=== PATIENT | female | born 1945 | race Caucasian/White ===

== ENCOUNTER 2018-07-06 09:00 | Emergency (ER) | payer OTHER ==
[2018-07-06 09:46] VITALS: BP 138/63; PULSE 82; TEMP 98.7; BMI 20.1
[2018-07-06] MEDS ORDERED: CYCLOBENZAPRINE HCL 10 MG TABLET (FP) PO ONE (10:42)
[2018-07-06] MEDS ORDERED: KETOROLAC TROMETHAMINE 15 MG/ML VIAL IM ONE (10:42)
--- NOTE | 2018-07-06 10:42 | PDOC ---
History of Present Illness - General Chief Complaint: Pain Stated Complaint: LEFT LEG PAIN Time Seen by Provider: 07/06/18 10:12 History Source: Patient Exam Limitations: No Limitations Past History - Past Medical History Allergies/Adverse Reactions: Allergies Allergy/AdvReac Type Severity Reaction Status Date / Time No Known Drug Allergies Allergy Verified 07/06/18 09:34 Home Medications: Ambulatory Orders Atorvastatin Ca [Lipitor] 5 mg PO HS 09/18/15 Azelastine/Fluticasone [Dymista Nasal [place]] 23 gm NS HS 09/18/15 Calcium 1,060 mg PO DAILY 10/24/15 Cholecalciferol (Vitamin D3) [Vitamin D3] 2,600 unit PO DAILY 10/24/15 Docosahexanoic Acid/Epa [Fish Oil Softgel] 1 each PO DAILY 10/24/15 L.acidoph,Paracasei, B.lactis [Probiotic] 1 each PO DAILY 10/24/15 Magnesium Oxide [Magnesium] 930 mg PO DAILY 10/24/15 Multivitamins [Multivit ([facility] Formulary)] 1 tab PO DAILY 10/24/15 Niacin [Niacin ER] 1,000 mg PO DAILY 10/24/15 Famotidine [Pepcid] 40 mg PO BID 02/23/18 Cyclobenzaprine HCl 5 mg PO HS #10 tablet 07/06/18 Ibuprofen 600 mg PO QID #30 tablet 07/06/18 Anemia: No Asthma: No Cancer: No Cardiac Disorders: No CVA: No COPD: No CHF: No Dementia: No Diabetes: No GI Disorders: Yes (ACID REFLUX) Disorders: No HTN: No Hypercholesterolemia: Yes Liver Disease: No Seizures: No Thyroid Disease: No - Suicide/Smoking/Psychosocial Hx Smoking History: Never smoked Hx Alcohol Use: No Drug/Substance Use Hx: No Substance Use Type: None *Physical Exam - Vital Signs Last Vital Signs Temp Pulse Resp BP Pulse Ox 98.7 F 82 16 138/63 99 07/06/18 09:34 07/06/18 09:34 07/06/18 09:34 07/06/18 09:34 07/06/18 09:34 *DC/Admit/Observation/Transfer Diagnosis at time of Disposition: Leg pain, left - Discharge Dispostion Disposition: HOME Condition at time of disposition: Stable Decision to Admit order: No - Referrals Referrals: Nicholas Brown MD [Primary Care Provider] - Andriy Taylor MD [Staff Physician] - Aj Norman MD [Staff Physician] - - Patient Instructions Printed Discharge Instructions: DI for Leg Pain, DI for Low Back Pain Additional Instructions: Your leg pain is most likely due to a muscle spasm in your back. Please take the ibuprofen 600 mg every 6 hours for the next week. Do not take more than 3000 mg a day. You may take the Flexeril 5 mg at night before bed. Do not drive after taking this medication as it may make you sleepy. You may alternate between heat and ice to the low back to help relieve the spasm. Gentle stretching exercises and walking may help as well. Please follow-up with orthopedics. 2 referrals have been provided for you. Return to the emergency department if you have numbness and tingling down the extremity, worsening pain, fevers, or if you have any changes in your symptoms. - Post Discharge Activity
[2018-07-06] MEDS ORDERED: CYCLOBENZAPRINE HCL 10 MG TABLET (FP) ONE (10:45)
[2018-07-06] MEDS ORDERED: KETOROLAC TROMETHAMINE 15 MG/ML VIAL ONE (10:46)
== END 2018-07-06 12:18 | disposition home or self-care (01) ==
LOC: JER 09:00 → JERFT 09:00
PROC: 3E0233Z Introduction of Anti-inflammatory into Muscle, Percutaneous Approach (ICD-10-PCS; principal; 2018-07-06)
DX: M79.605 Pain in left leg (principal); K21.9 Gastro-esophageal reflux disease without esophagitis; E78.00 Pure hypercholesterolemia, unspecified
CPT/HCPCS: 72100-TC-FY; 96372; 99281-25

== ENCOUNTER 2018-07-08 00:43 | Inpatient (IN) | payer OTHER ==
--- NOTE | 2018-07-08 02:04 | PDOC ---
History of Present Illness - General Chief Complaint: Pain Stated Complaint: LEFT LEG PAIN Time Seen by Provider: 07/08/18 02:04 - History of Present Illness Initial Comments: 07/08/18 02:18 Ms. Bourne is a 72 yo female w/ pmh of HLD who presents for evaluation of left hip pain. Patient reports it has lasted for approximately 1 1/2 weeks and that she saw a chiropractor who attempted electrical stimulation which made pain worse. Patient has an appointment for 10am today with orthopedics. Patient was evaluated in this ER yesterday in fast track and had spine Xray which was negative. Was discharged after 15mg toradol shot w/ flexeril and ibuprofen. Reports this was only minimally helpful. The patient denies chest pain, shortness of breath, headache and dizziness. Denies fever, chills, nausea, vomit, diarrhea and constipation. Denies dysuria, frequency, urgency and hematuria. Past History - Past Medical History Allergies/Adverse Reactions: Allergies Allergy/AdvReac Type Severity Reaction Status Date / Time No Known Drug Allergies Allergy Verified 07/06/18 09:34 Home Medications: Ambulatory Orders Atorvastatin Ca [Lipitor] 5 mg PO HS 09/18/15 Azelastine/Fluticasone [Dymista Nasal [place]] 23 gm NS HS 09/18/15 Calcium 1,060 mg PO DAILY 10/24/15 Cholecalciferol (Vitamin D3) [Vitamin D3] 2,600 unit PO DAILY 10/24/15 Docosahexanoic Acid/Epa [Fish Oil Softgel] 1 each PO DAILY 10/24/15 L.acidoph,Paracasei, B.lactis [Probiotic] 1 each PO DAILY 10/24/15 Magnesium Oxide [Magnesium] 930 mg PO DAILY 10/24/15 Multivitamins [Multivit ([facility] Formulary)] 1 tab PO DAILY 10/24/15 Niacin [Niacin ER] 1,000 mg PO DAILY 10/24/15 Famotidine [Pepcid] 40 mg PO BID 02/23/18 Cyclobenzaprine HCl 5 mg PO HS #10 tablet 07/06/18 Ibuprofen 600 mg PO QID #30 tablet 07/06/18 Anemia: No Asthma: No Cancer: No Cardiac Disorders: No CVA: No COPD: No CHF: No Dementia: No Diabetes: No GI Disorders: Yes (ACID REFLUX) Disorders: No HTN: No Hypercholesterolemia: Yes Liver Disease: No Seizures: No Thyroid Disease: No - Suicide/Smoking/Psychosocial Hx Smoking History: Never smoked Hx Alcohol Use: Yes (1-2 WEEK) Drug/Substance Use Hx: No Substance Use Type: None Review of Systems - Review of Systems Comments:: 07/08/18 02:25 GENERAL/CONSTITUTIONAL: No fever or chills. No weakness. HEAD, EYES, EARS, NOSE AND THROAT: No change in vision. No ear pain or discharge. No sore throat. CARDIOVASCULAR: No chest pain or shortness of breath RESPIRATORY: No cough, wheezing, or hemoptysis. GASTROINTESTINAL: No nausea, vomiting, diarrhea or constipation. GENITOURINARY: No dysuria, frequency, or change in urination. MUSCULOSKELETAL: +Left shooting hip pain as described. SKIN: No rash NEUROLOGIC: No headache, vertigo, loss of consciousness, or change in strength/ sensation. ENDOCRINE: No increased thirst. No abnormal weight change HEMATOLOGIC/LYMPHATIC: No anemia, easy bleeding, or history of blood clots. ALLERGIC/IMMUNOLOGIC: No hives or skin allergy. *Physical Exam - Vital Signs Last Vital Signs Temp Pulse Resp BP Pulse Ox 97.4 F L 79 19 126/69 98 07/08/18 00:50 07/08/18 00:50 07/08/18 00:50 07/08/18 00:50 07/08/18 00:50 - Physical Exam Comments: 07/08/18 02:26 GENERAL: Awake, alert, and fully oriented, in no acute distress HEAD: No signs of trauma, normocephalic, atraumatic EYES: PERRLA, EOMI, sclera anicteric, conjunctiva clear ENT: Auricles normal inspection, hearing grossly normal, nares patent, oropharynx clear without exudates. Moist mucosa NECK: Normal ROM, supple, no lymphadenopathy, JVD, or masses LUNGS: No distress, speaks full sentences, clear to auscultation bilaterally HEART: Regular rate and rhythm, normal S1 and S2, no murmurs, rubs or gallops, peripheral pulses normal and equal bilaterally. ABDOMEN: Soft, nontender, normoactive bowel sounds. No guarding, no rebound. No masses EXTREMITIES: +Positive straight leg raise test (L). No TTP. Normal sensation. Unable to test full ROM. Normal strength. NEUROLOGICAL: Cranial nerves II through XII grossly intact. Normal speech, no focal sensorimotor deficits SKIN: Warm, Dry, normal turgor, no rashes or lesions noted. ED Treatment Course - LABORATORY CBC & Chemistry Diagram: 07/08/18 03:40 07/08/18 03:40 Medical Decision Making - Medical Decision Making 07/08/18 03:31 Ms. Bourne is a 72 yo female w/ pmh as described who presents for evaluation of leg pain. Patient scheduled for 10am appointment with ortho. Upon repeat evaluation patient complaining of palpitations. EKG ordered for evaluation revealed patient now in afib. Cardiac workup started for further evaluation. Patient given 162 ASA. 07/08/18 06:36 Labs grossly wnl as below however slight UTI noted. Patient admitted to hospitalist for further cardiac evaluation. Laboratory Results - last 24 hr 07/08/18 07/08/18 07/08/18 03:40 03:40 03:40 WBC 9.7 RBC 4.46 Hgb 14.3 Hct 42.5 MCV 95.3 MCH 32.0 MCHC 33.6 RDW 13.3 Plt Count 307 MPV 8.5 Absolute Neuts (auto) 6.9 Neutrophils % 71.1 Lymphocytes % 16.0 Monocytes % 11.5 H Eosinophils % 1.0 D Basophils % 0.4 Nucleated RBC % 0 Sodium 138 Potassium 3.4 L Chloride 101 Carbon Dioxide 26 Anion Gap 11 BUN 11 Creatinine 0.4 L Creat Clearance w eGFR > 60 Random Glucose 94 Calcium 8.3 L Magnesium 2.3 Total Bilirubin 0.5 AST 18 ALT 23 Alkaline Phosphatase 85 Creatine Kinase 93 Troponin I 0.02 Total Protein 6.6 Albumin 3.6 TSH 1.21 Urine Color Yellow Urine Appearance Slcloudy Urine pH 6.0 Ur Specific [place] 1.008 L Urine Protein Negative Urine Glucose (UA) Negative Urine Ketones 1+ H Urine Blood 1+ H Urine Nitrite Negative Urine Bilirubin Negative Urine Urobilinogen Negative Ur Leukocyte Esterase 1+ H Urine WBC (Auto) 8 Urine RBC (Auto) 5 Urine Bacteria Rare Urine Mucus Rare *DC/Admit/Observation/Transfer Diagnosis at time of Disposition: Leg pain, left Afib Qualifiers: Atrial fibrillation type: unspecified Qualified Code(s): I48.91 - Unspecified atrial fibrillation - Discharge Dispostion Condition at time of disposition: Stable Decision to Admit order: Yes - Referrals Referrals: Nicholas Brown MD [Primary Care Provider] - - Patient Instructions - Post Discharge Activity
[2018-07-08] MEDS ORDERED: KETOROLAC TROMETHAMINE 30 MG/1 ML VIAL IM ONE (02:21)
[2018-07-08] MEDS ORDERED: ACETAMINOPHEN 500 MG TABLET (FP) PO ONE (03:06)
[2018-07-08] MEDS ORDERED: ACETAMINOPHEN 325 MG TABLET (FP) ONE (03:13)
[2018-07-08] MEDS ORDERED: KETOROLAC TROMETHAMINE 30 MG/1 ML VIAL ONE (03:13)
[2018-07-08] MEDS ORDERED: SODIUM CHLORIDE 1,000 ML IV STA (03:19)
[2018-07-08] MEDS ORDERED: morphine CARPU-JECT 4 MG/1 ML DISP.SYRIN IVPUSH ONE (03:19)
[2018-07-08] MEDS ORDERED: dilTIAZem HCL 50 MG/10 ML - 10 ML VIAL IVPUSH ONE ×2 (03:22→04:34)
[2018-07-08] MEDS ORDERED: dilTIAZem HCL 60 MG TABLET (FP) PO ONE (03:26)
[2018-07-08] MEDS ORDERED: dilTIAZem HCL 60 MG TABLET (FP) ONE (03:27)
[2018-07-08] MEDS ORDERED: morphine SULFATE 4 MG/ML VIAL ONE (03:27)
[2018-07-08] MEDS ORDERED: dilTIAZem HCL 125 MG/25 ML - 25 ML VIAL ONE ×2 (03:27→04:45)
--- NOTE | 2018-07-08 04:03 | PDOC ---
Attending Attestation - Resident Resident Name: BrendanruddySav vidales - ED Attending Attestation I have performed the following: I have examined & evaluated the patient, The case was reviewed & discussed with the resident, I agree w/resident's findings & plan - HPI HPI: 07/08/18 04:51 72 year old female with a significant past medical history of acid reflux and hyperlipidemia who presents to the emergency department for pain to her left leg and thigh since walking in the city a couple of weeks ago. She states she has an appointment with adapted physical education specialist at 10am. was seen 07/06/18 in the ED for similar sx, given toradol, instructions on flexeril and ibuprofen, w/o relief. no new trauma. she did receive stimulation treatment by chiropractor for her leg/thigh pain/ paresthesias. The patient denies chest pain, shortness of breath, headache and dizziness. The patient denies fever, chills, nausea, vomit, diarrhea and constipation. The patient denies dysuria, urgency, retention. PCP - Dr. Brown - Physicial Exam PE: 07/08/18 03:58 NAD, well appearing, PERRL, EOMI, MMM, nl conjunctiva, anicteric; neck supple. lungs clear, tachy, irregularly irregular, abdomen soft nontender. STUBBS x4, no focal neuro deficits. 5/5 strength in lower extrem, SILT in all extrem wiggles toes. +TTP in left thigh and buttock, +SLR. no back tenderness midline. No peripheral edema. normal color for ethnicity, [facility]. - Medical Decision Making 07/08/18 04:52 72 YOF with GERD and HLD, presenting with left leg/thigh pain, worse with movement, +strenuous activity, 2nd ED visit. already had L spine Xray from prior visit with good alignment, no compression fx. vitals notable for tachycardia, found to be in Afib. pt c/o palpitations while I examined her, EKG revealed Afib RVR. given diltiazem IV then PO dose. rate controlled, still in afib, but rate now between 90-110s. IVF hydration analgesia with morphine ASA given basic labs and lytes_wnl, trop neg. UA with leuk esterase and wbcs, will treat as UTI with urinary frequency, with keflex course. plan to admit for pain control, new onset Afib RVR, now rate controlled. Cardiology cs put in to Dr. 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 Roldan service. 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
[2018-07-08 04:13] LABS: BASO % 0.4 % (0-2.0); HEMATOCRIT 42.5 % (32.4-45.2); HEMOGLOBIN 14.3 GM/dL (10.7-15.3); MCHC 33.6 g/dl (32.0-36.0); MEAN CELL VOLUME 95.3 fl (80-96); MEAN PLT VOLUME 8.5 fl (7.5-11.1); MONO % 11.5 % (3.8-10.2); NEUT % 71.1 % (42.8-82.8); PLATELET COUNT 307 K/MM3 (134-434); RBC 4.46 M/mm3 (3.60-5.2); RDW 13.3 % (11.6-15.6); URINE APPEARANCE SLCLOUDY; URINE BILIRUBIN NEGATIVE (<2.0 mg/dL); URINE COLOR YELLOW; URINE GLUCOSE (UA) NEGATIVE (NEGATIVE); URINE KETONE 1+ (NEGATIVE); URINE LEUK ESTERASE 1+ (NEGATIVE); URINE NITRITE NEGATIVE (NEGATIVE); URINE PROTEIN NEGATIVE (NEGATIVE); URINE UROBILINOGEN NEGATIVE mg/dL (0.2-1.0); WHITE BLOOD COUNT 9.7 K/mm3 (4.0-10.0)
[2018-07-08 04:21] LABS: URINE BACTERIA RARE /hpf (NONE SEEN); URINE MUCUS RARE
[2018-07-08] MEDS ORDERED: CEPHALEXIN MONOHYDRATE 500 MG CAPSULE (UD) PO ONE (04:35)
[2018-07-08] MEDS ORDERED: CEPHALEXIN MONOHYDRATE 500 MG CAPSULE (UD) ONE (04:44)
[2018-07-08 05:00] LABS: ALBUMIN 3.6 g/dl (3.4-5.0); ALK PHOS 85 U/L (45-117); ANION GAP 11 MMOL/L (8-16); BILIRUBIN,TOTAL 0.5 mg/dL (0.2-1); BLOOD UREA NITROGEN 11 mg/dL (7-18); CALCIUM 8.3 mg/dL (8.5-10.1); CHLORIDE 101 mmol/L (98-107); CO2 26 mmol/L (21-32); CREATININE 0.4 mg/dL (0.55-1.3); GLUCOSE,RANDOM 94 mg/dL (74-106); POTASSIUM 3.4 mmol/L (3.5-5.1); SGOT/AST 18 U/L (15-37); SGPT/ALT 23 U/L (13-61); SODIUM 138 mmol/L (136-145); TOT PROT 6.6 g/dl (6.4-8.2)
[2018-07-08 05:59] LABS: MAGNESIUM 2.3 mg/dL (1.8-2.4)
[2018-07-08 06:40] LABS: INR 1.16 (0.83-1.09); PROTHROMBIN TIME (PATIENT) 13.7 SEC (9.7-13.0)
[2018-07-08] MEDS ORDERED: ACETAMINOPHEN 325 MG TABLET (FP) PO PRN (06:54)
[2018-07-08] MEDS ORDERED: ENOXAPARIN NA (PORCINE) 60 MG/0.6 ML DISP.SYRIN SQ ONE (07:30)
--- NOTE | 2018-07-08 07:39 | HP ---
CHIEF COMPLAINT: left hip pain PCP: Dr. Brown HISTORY OF PRESENT ILLNESS: Patient is a 72 year old female with a significant past medical history of HLD. She presents to the ED today for the second time in 2 days. The first visit was on when patient came in for left hip and thigh pain that worsened with movement and had a spine xray which was negative She was discharged on Flexeril and toradol and was to follow up with an orthopedic physician as an outpatient. She returns back to the ER with worsening left hip pain 06/17. Denies any trauma, falls. States that she went to see a chiropractor about 1 week ago who attempted an electrical stimulation procedure which made her pain worse. Patient has an appointment today with an orthopedic surgeon but her left hip pain became so severe prompting her to come back to the ED. In the ED she was noted to have tachycardia and an ekg revealed atrib with RVR. She was given Dilitiazem iv 15mg x1 and PO cardizem 60mg. She is admitted for severe left hip pain and new onset afib with rvr. ER course was notable for: (1) chest xray with new congestive changes (2) trop negative (3) vascular doppler negative for DVT (4) Lovenox 60mg x 1 Social History: Smoking: denies Alcohol:denies Drugs: denies Family History: Allergies No Known Drug Allergies Allergy (Verified 07/06/18 09:34) HOME MEDICATIONS: Home Medications Medication Instructions Recorded Atorvastatin Ca [Lipitor] 5 mg PO HS 09/18/15 Azelastine/Fluticasone [Dymista 23 gm NS HS 09/18/15 Nasal [place]] Calcium 1,060 mg PO DAILY 10/24/15 Cholecalciferol (Vitamin D3) 2,600 unit PO DAILY 10/24/15 [Vitamin D3] Docosahexanoic Acid/Epa [Fish Oil 1 each PO DAILY 10/24/15 Softgel] L.acidoph,Paracasei, B.lactis 1 each PO DAILY 10/24/15 [Probiotic] Magnesium Oxide [Magnesium] 930 mg PO DAILY 10/24/15 Multivitamins [Multivit ([facility] 1 tab PO DAILY 10/24/15 Formulary)] Niacin [Niacin ER] 1,000 mg PO DAILY 10/24/15 Famotidine [Pepcid] 40 mg PO BID 02/23/18 Cyclobenzaprine HCl 5 mg PO HS #10 tablet 07/06/18 Ibuprofen 600 mg PO QID #30 tablet 07/06/18 PHYSICAL EXAMINATION Vital Signs - 24 hr 07/08/18 07/08/18 07/08/18 00:50 04:15 05:46 Temperature 97.4 F L Pulse Rate 79 Pulse Rate [ 142 H 104 H Apical] Respiratory 19 19 Rate Blood Pressure 126/69 Blood Pressure 119/71 [Right Arm] O2 Sat by Pulse 98 97 Oximetry (%) 07/08/18 06:10 Temperature Pulse Rate Pulse Rate [ 107 H Apical] Respiratory 21 H Rate Blood Pressure Blood Pressure 110/59 L [Right Arm] O2 Sat by Pulse 98 Oximetry (%) GENERAL: Awake, alert, and fully oriented, in no acute distress. HEAD: Normal with no signs of trauma. EYES: Pupils equal, round and reactive to light, extraocular movements intact, sclera anicteric, conjunctiva clear. No lid lag. EARS, NOSE, THROAT: Ears normal, nares patent, oropharynx clear without exudates. Moist mucous membranes. NECK: Normal range of motion, supple without lymphadenopathy, JVD, or masses. LUNGS: Breath sounds equal, clear to auscultation bilaterally. No wheezes, and no crackles. No accessory muscle use. HEART: Regular rate and rhythm, normal S1 and S2 without murmur, rub or gallop. ABDOMEN: Soft, nontender, not distended, normoactive bowel sounds, no guarding, no rebound, no masses. No hepatomegaly or splenomegaly. MUSCULOSKELETAL: Normal range of motion at all joints. No bony deformities or tenderness. No CVA tenderness. UPPER EXTREMITIES: 2+ pulses, warm, well-perfused. No cyanosis. No clubbing. No peripheral edema. LOWER EXTREMITIES: 2+ pulses, warm, well-perfused. No calf tenderness. No peripheral edema. PSYCHIATRIC: Cooperative. Good eye contact. Appropriate mood and affect. SKIN: Warm, dry, normal turgor, no rashes or lesions noted, normal capillary refill. Laboratory Results - last 24 hr 07/08/18 07/08/18 07/08/18 03:40 03:40 03:40 WBC 9.7 RBC 4.46 Hgb 14.3 Hct 42.5 MCV 95.3 MCH 32.0 MCHC 33.6 RDW 13.3 Plt Count 307 MPV 8.5 Absolute Neuts (auto) 6.9 Neutrophils % 71.1 Lymphocytes % 16.0 Monocytes % 11.5 H Eosinophils % 1.0 D Basophils % 0.4 Nucleated RBC % 0 PT with INR INR PTT (Actin FS) Sodium 138 Potassium 3.4 L Chloride 101 Carbon Dioxide 26 Anion Gap 11 BUN 11 Creatinine 0.4 L Creat Clearance w eGFR > 60 Random Glucose 94 Calcium 8.3 L Magnesium 2.3 Total Bilirubin 0.5 AST 18 ALT 23 Alkaline Phosphatase 85 Creatine Kinase 93 Troponin I 0.02 Total Protein 6.6 Albumin 3.6 TSH 1.21 Urine Color Yellow Urine Appearance Slcloudy Urine pH 6.0 Ur Specific [place] 1.008 L Urine Protein Negative Urine Glucose (UA) Negative Urine Ketones 1+ H Urine Blood 1+ H Urine Nitrite Negative Urine Bilirubin Negative Urine Urobilinogen Negative Ur Leukocyte Esterase 1+ H Urine WBC (Auto) 8 Urine RBC (Auto) 5 Urine Bacteria Rare Urine Mucus Rare 07/08/18 07/08/18 06:08 06:09 WBC RBC Hgb Hct MCV MCH MCHC RDW Plt Count MPV Absolute Neuts (auto) Neutrophils % Lymphocytes % Monocytes % Eosinophils % Basophils % Nucleated RBC % PT with INR 13.70 H INR 1.16 H PTT (Actin FS) 23.7 L Sodium Potassium Chloride Carbon Dioxide Anion Gap BUN Creatinine Creat Clearance w eGFR Random Glucose Calcium Magnesium Total Bilirubin AST ALT Alkaline Phosphatase Creatine Kinase Troponin I Total Protein Albumin TSH Urine Color Urine Appearance Urine pH Ur Specific [place] Urine Protein Urine Glucose (UA) Urine Ketones Urine Blood Urine Nitrite Urine Bilirubin Urine Urobilinogen Ur Leukocyte Esterase Urine WBC (Auto) Urine RBC (Auto) Urine Bacteria Urine Mucus ASSESSMENT/PLAN: Patient is a 72 year old female with a significant past medical history of HLD. She presents to the ED today for the second time in 2 days. The first visit was on when patient came in for left hip and thigh pain that worsened with movement and had a spine xray which was negative She was discharged on Flexeril and toradol and was to follow up with an orthopedic physician as an outpatient. She returns back to the ER with worsening left hip pain 06/17. Denies any trauma, falls. States that she went to see a chiropractor about 1 week ago who attempted an electrical stimulation procedure which made her pain worse. Patient has an appointment today with an orthopedic surgeon but her left hip pain became so severe prompting her to come back to the ED. In the ED she was noted to have tachycardia and an ekg revealed atrib with RVR. She was given Dilitiazem iv 15mg x1 and PO cardizem 60mg. She is admitted for severe left hip pain and new onset afib with rvr. ----- Left hip pain HLD Atrial fib with RVR UTI --- Tachycardia/new onset afib In the ED, vitals notable for tachycardia, and found to be in Afib. with c/o of palpitations. EKG revealed Afib RVR. She was given diltiazem IV then Cardizem PO dose. ASA 162mg given in the Ed Troponin negative x 1 Lovenox 60mg x 1 weight based given in ER. further a/c to be determined by cardiology. Monitor on tele, trend trops, echo and cardiology consult. Will continue with PO Cardizem for rate control. HLD On Lipitor, Niacin fasting Lipid panel in a.m. UTI UA with leuk esterase and wbcs, asymptomatic, afebrile. Urine culture ordered Left hip pain Left hip xray stat Consider ortho consult PT evaluation Pain control with ultram and lidoderm fen tolerating PO monitor electrolytes low salt diet prophy heparin physical therapy protonix full code Visit type - Emergency Visit Emergency Visit: Yes ED Registration Date: 07/08/18 Care time: The patient presented to the Emergency Department on the above date and was hospitalized for further evaluation of their emergent condition. - New Patient This patient is new to me today: Yes Date on this admission: 07/08/18 - Critical Care Critical Care patient: No
[2018-07-08] MEDS: traMADol HCL 50 MG TABLET PO PRN ×2 (09:23→23:46)
--- NOTE | 2018-07-08 10:06 | CON.CARD ---
Consult Consult Specialty:: Cardiology Reason for Consultation:: af - History of Present Illness History of Present Illness: Patient is a 72 year old female with a significant past medical history of HLD. She presents to the ED today for the second time in 2 days. The first visit was on when patient came in for left hip and thigh pain that worsened with movement and had a spine xray which was negative She was discharged on Flexeril and toradol and was to follow up with an orthopedic physician as an outpatient. She returns back to the ER with worsening left hip pain 06/17. Denies any trauma, falls. States that she went to see a chiropractor about 1 week ago who attempted an electrical stimulation procedure which made her pain worse. Patient has an appointment today with an orthopedic surgeon but her left hip pain became so severe prompting her to come back to the ED. - History Source History Provided By: Patient, Medical Record - Past Medical History Cardio/Vascular: Yes: AFIB - Alcohol/Substance Use Hx Alcohol Use: Yes (1-2 WEEK) - Smoking History Smoking history: Never smoked Home Medications - Allergies Allergies/Adverse Reactions: Allergies Allergy/AdvReac Type Severity Reaction Status Date / Time No Known Drug Allergies Allergy Verified 07/06/18 09:34 - Home Medications Home Medications: Ambulatory Orders Atorvastatin Ca [Lipitor] 5 mg PO HS 09/18/15 Azelastine/Fluticasone [Dymista Nasal [place]] 23 gm NS HS 09/18/15 Calcium 1,060 mg PO DAILY 10/24/15 Cholecalciferol (Vitamin D3) [Vitamin D3] 2,600 unit PO DAILY 10/24/15 Docosahexanoic Acid/Epa [Fish Oil Softgel] 1 each PO DAILY 10/24/15 L.acidoph,Paracasei, B.lactis [Probiotic] 1 each PO DAILY 10/24/15 Magnesium Oxide [Magnesium] 930 mg PO DAILY 10/24/15 Multivitamins [Multivit ([facility] Formulary)] 1 tab PO DAILY 10/24/15 Niacin [Niacin ER] 1,000 mg PO DAILY 10/24/15 Famotidine [Pepcid] 40 mg PO BID 02/23/18 Cyclobenzaprine HCl 5 mg PO HS #10 tablet 07/06/18 Ibuprofen 600 mg PO QID #30 tablet 07/06/18 Review of Systems - Review of Systems Constitutional: reports: No Symptoms Eyes: reports: No Symptoms HENT: reports: No Symptoms Neck: reports: No Symptoms Cardiovascular: reports: No Symptoms Gastrointestinal: reports: No Symptoms Genitourinary: reports: No Symptoms Breasts: reports: No Symptoms Reported Musculoskeletal: reports: No Symptoms Integumentary: reports: No Symptoms Neurological: reports: No Symptoms Endocrine: reports: No Symptoms Hematology/Lymphatic: reports: No Symptoms Psychiatric: reports: No Symptoms Vital Signs: Vital Signs Temperature 97.5 F L 07/08/18 08:49 Pulse Rate 59 L 07/08/18 08:49 Respiratory Rate 20 07/08/18 08:49 Blood Pressure 92/52 L 07/08/18 08:49 O2 Sat by Pulse Oximetry (%) 98 07/08/18 06:10 Constitutional: Yes: Well Nourished, No Distress, Calm Eyes: Yes: WNL, Conjunctiva Clear, EOM Intact HENT: Yes: WNL, Atraumatic, Normocephalic Neck: Yes: WNL, Supple, Trachea Midline Respiratory: Yes: WNL, Regular, CTA Bilaterally Gastrointestinal: Yes: WNL, Normal Bowel Sounds Renal/: Yes: WNL Cardiovascular: Yes: WNL, Regular Rate and Rhythm Musculoskeletal: Yes: WNL Extremities: Yes: WNL Integumentary: Yes: WNL Neurological: Yes: WNL, Alert, Oriented ...Motor Strength: WNL Psychiatric: Yes: WNL, Alert, Oriented - Other Data Labs, Other Data: CBC, BMP 07/08/18 03:40 07/08/18 03:40 INR, PTT INR 1.16 (0.83-1.09) H 07/08/18 06:08 Troponin, BNP 07/08/18 03:40 Troponin I 0.02 Troponin, BNP 07/08/18 03:40 Troponin I 0.02 Imaging - Results Chest X-ray: Image Reviewed (no i/e) EKG: Image Reviewed (af rvr rep abn) Problem List - Problems (1) Afib Code(s): I48.91 - UNSPECIFIED ATRIAL FIBRILLATION Qualifiers: Atrial fibrillation type: unspecified Qualified Code(s): I48.91 - Unspecified atrial fibrillation (2) Leg pain, left Code(s): M79.605 - PAIN IN LEFT LEG (3) Palpitations Code(s): R00.2 - PALPITATIONS Assessment/Plan af rvr (?triggered by pain) in sr now CHADS@VASc score 2 huip pain plan cont telemetry echo repeat ekg will decide re nursing home AC after reviewing echo and patient course on telemetry 24 holter
[2018-07-08] MEDS ORDERED: PT OWN MED DRAWER 7, Y5N ONE (10:43)
[2018-07-08] MEDS: LIDOCAINE 5% TOPICAL PATCH TP SCH (10:45)
[2018-07-08] MEDS: ASPIRIN COATED 81 MG TABLET.EC PO SCH (10:45)
[2018-07-08] MEDS: POTASSIUM CHLORIDE TABS 20 MEQ TABLET.ER (FP) PO SCH (10:45)
--- NOTE | 2018-07-08 11:02 | EKG ---
Test Reason : Blood Pressure : / mmHG Vent. Rate : 161 BPM Atrial Rate : 170 BPM P-R Int : 000 ms QRS Dur : 092 ms QT Int : 306 ms P-R-T Axes : 000 051 269 degrees QTc Int : 500 ms ATRIAL FIBRILLATION WITH RAPID VENTRICULAR RESPONSE MARKED ST ABNORMALITY, POSSIBLE INFERIOR SUBENDOCARDIAL INJURY MARKED ST ABNORMALITY, POSSIBLE ANTERIOR SUBENDOCARDIAL INJURY ABNORMAL ECG WHEN COMPARED WITH ECG OF 23-FEB-2018 10:05, SIGNIFICANT CHANGES HAVE OCCURRED Confirmed by CHINYERE LYNNE MD ([id number]) on 07/08/2018 11:02:00 AM Referred By: Confirmed By:CHINYERE LYNNE MD
[2018-07-08] MEDS ORDERED: dilTIAZem HCL 30 MG TABLET (FP) PO SCH (12:00)
--- NOTE | 2018-07-08 12:07 | EKG ---
Test Reason : Blood Pressure : / mmHG Vent. Rate : 058 BPM Atrial Rate : 058 BPM P-R Int : 146 ms QRS Dur : 100 ms QT Int : 476 ms P-R-T Axes : 078 048 057 degrees QTc Int : 467 ms SINUS BRADYCARDIA OTHERWISE NORMAL ECG WHEN COMPARED WITH ECG OF 08-JUL-2018 03:14, SINUS RHYTHM HAS REPLACED ATRIAL FIBRILLATION VENT. RATE HAS DECREASED BY [address] NO LONGER DEPRESSED IN INFERIOR LEADS ST NO LONGER DEPRESSED IN ANTEROLATERAL LEADS T WAVE INVERSION NO LONGER EVIDENT IN INFERIOR LEADS T WAVE INVERSION NO LONGER EVIDENT IN ANTEROLATERAL LEADS Confirmed by CHINYERE LYNNE MD ([id number]) on 07/08/2018 12:06:49 PM Referred By: Shana VERMA Confirmed By:CHINYERE LYNNE MD
--- NOTE | 2018-07-08 14:26 | PN ---
Progress Note (short form) - Note Progress Note: Pt seen and examined. She denies any recent history of trauma. She states that she previously had left hip pain, she went to a chiropractor who applied electrical stimulation to the left low back and left hip area. Now her left hip area pain has completely resolved, she has no pain in that area. Now she has muscular strain type tightness and discomfort in both lateral calves, and mildly in the hamstrings. PE No findings in the pelvis or B/L hip area. Left leg above the knee and thigh/hip area are completely normal. Full ROM without pain. No pain in the left hip or hemipelvis with log rolling or axial load. No signs of acute trauma below the knees. No swelling. No bruising. No erythema. Completely non tender globally. B/L LE are NVI Her only physical findings today are that she is mildly sore around both lateral calves. Not swollen, not tight, no signs of a DVT. Not particularly tight. Xrays All xrays are nl, no signs of acute letty pathology, in pelvis, hip, femur Imp No pain in hip. + mild muscular soreness over B/L calves. Rec NTD from an ortho pov. No surgery. OOB and ambulate as tolerated, WBAT.
--- NOTE | 2018-07-08 14:43 | ECHO ---
Name: FAISAL FREEMAN Exam:Adult Echocardiogram Study Date: 07/08/2018 12:35 PM Age: 72 yrs Reason For Study: new onset a fib Height: 66 in Weight: 125 lb BSA: 1.6 m2 MMode/2D Measurements & Calculations IVSd: 0.71 cm Ao root diam: 3.4 cm LVIDd: 5.3 cm LA dimension: 3.6 cm LVIDs: 3.5 cm ACS: 2.0 cm LVPWd: 0.78 cm IVSs: 0.94 cm LVPWs: 1.1 cm EDV(Teich): 135.9 ml ESV(Teich): 49.2 ml Doppler Measurements & Calculations MV E max leonardo: 61.7 cm/sec Ao V2 max: 113.4 cm/sec MV A max leonardo: 49.4 cm/sec Ao max P.1 mmHg MV E/A: 1.3 Ao V2 mean: 70.4 cm/sec Ao mean P.5 mmHg Ao V2 VTI: 21.8 cm MR max leonardo: 332.5 cm/sec TR max leonardo: 233.8 cm/sec MR max P.2 mmHg TR max P.9 mmHg Med Peak E' Leonardo: 5.6 cm/sec Med E/e': 11.1 Lat Peak E' Leonardo: 6.9 cm/sec Lat E/e': 8.9 Procedure A two-dimensional transthoracic echocardiogram with color flow and Doppler was performed. Left Ventricle The left ventricular size, thickness and function are normal. The left ventricular ejection fraction is normal. Left Ventricular Filling pattern is normal for age. The left ventricular wall motion is carmina l. Right Ventricle The right ventricle is normal in size and function. Atria Normal left and right atrial size and function. The atrial septum is aneurysmal. Mitral Valve There is mild mitral valve thickening. There is no mitral valve stenosis. There is trace to mild mitr al regurgitation. Tricuspid Valve There is mild tricuspid valve thickening. There is no tricuspid stenosis. There is moderate to severe tricuspid regurgitation. Right ventricular systolic pressure is normal. Aortic Valve The aortic valve is normal in structure and function. No hemodynamically significant valvular aortic stenosis. No aortic regurgitation is present. Pulmonic Valve The pulmonic valve is not well visualized. There is no pulmonic valvular stenosis. Trace to mild pulm onic valvular regurgitation. Great Vessels The aortic root is normal size. Pericardium/Pleura There is no pericardial effusion. Interpretation Summary The left ventricular size, thickness and function are normal The left ventricular ejection fraction is normal. The left ventricular wall motion is normal. There is moderate to severe tricuspid regurgitation. Right ventricular systolic pressure is normal. The atrial septum is aneurysmal. There is trace to mild mitral regurgitation. Left Ventricular Filling pattern is normal for age. MD Addi Knutson 07/08/2018 02:43 PM
[2018-07-08] MEDS: dilTIAZem HCL 30 MG TABLET (FP) PO SCH (16:03)
[2018-07-08 19:00] VITALS: BMI 20.7
[2018-07-08] MEDS: ATORVASTATIN CA 10 MG TABLET (FP) PO SCH (22:51)
[2018-07-08] MEDS: LIDOCAINE PATCH REMOVAL MC SCH (23:06)
[2018-07-09] MEDS: dilTIAZem HCL 30 MG TABLET (FP) PO SCH ×4 (00:05→18:10)
--- NOTE | 2018-07-09 10:45 | PN ---
Progress Note, Physician Chief Complaint: Pt A&Ox3; nervous; wants to get OOB< but afrraid, and cries out in pain (from legs( when she moves in bed.No palpiitations or chest pain. History of Present Illness: 72 year old white female with a significant past medical history of acid reflux and hyperlipidemia who presents to the emergency department for pain to her left leg and thigh since walking in the city a couple of weeks ago. She states she has an appointment with auto clutch specialist at 10am. was seen 07/06/18 in the ED for similar sx, given toradol, instructions on flexeril and ibuprofen, w/o relief. no new trauma. she did receive stimulation treatment by chiropractor for her leg/thigh pain/ paresthesias. The patient denies chest pain, shortness of breath, headache and dizziness. The patient denies fever, chills, nausea, vomit, diarrhea and constipation. The patient denies dysuria, urgency, retention. PCP - Dr. Brown-->Annabi - Current Medication List Current Medications: Active Medications Acetaminophen (Tylenol -) 650 mg PO Q6H PRN PRN Reason: PAIN OR FEVER Last Admin: 07/09/18 01:44 Dose: 650 mg Aspirin (Ecotrin -) 81 mg PO DAILY [facility] Last Admin: 07/08/18 10:45 Dose: 81 mg Atorvastatin Calcium (Lipitor -) 5 mg PO HS [facility] Last Admin: 07/08/18 22:51 Dose: 5 mg Diltiazem HCl (Cardizem -) 30 mg PO Q6HPO [facility] Last Admin: 07/09/18 07:17 Dose: Not Given Lidocaine (Lidoderm Patch -) 1 patch TP DAILY [facility] Last Admin: 07/08/18 10:45 Dose: 1 patch Miscellaneous (Lidoderm Patch Removal) 1 each MC DAILY@2200 [facility] Last Admin: 07/08/18 23:06 Dose: Not Given Potassium Chloride (K-Dur -) 20 meq PO DAILY [facility] Last Admin: 07/08/18 10:45 Dose: 20 meq Tramadol HCl (Ultram -) 50 mg PO Q4H PRN PRN Reason: PAIN LEVEL 7 - 10 Last Admin: 07/08/18 23:46 Dose: 50 mg - Objective Vital Signs: Vital Signs Temperature 98.3 F 11/01/18 08:53 Pulse Rate 79 07/09/18 08:53 Respiratory Rate 18 07/09/18 08:53 Blood Pressure 114/68 07/09/18 08:53 O2 Sat by Pulse Oximetry (%) 99 07/08/18 12:12 Constitutional: Yes: Anxious, Thin Eyes: Yes: WNL Labs: CBC, BMP 07/08/18 03:40 07/08/18 03:40 INR, PTT INR 1.16 (0.83-1.09) H 07/08/18 06:08 Problem List - Problems (1) Paroxysmal A-fib Assessment/Plan: AF with RVR on admission. Now in NSR, with periods of sinus bradycardia. ECHO: normal LVEF; normal chamber sizes; moderately severe TR; atrial septal aneurysm. Rec: For diltiazem CD for HR control. Apixaban for anticoagulation. Replete K F/u TSH. Code(s): I48.0 - PAROXYSMAL ATRIAL FIBRILLATION (2) Hypokalemia Assessment/Plan: replete K, and keep 4-4.5 Keep Mg 2-2.4 Keep PO4 2.5-4.9. Code(s): E87.6 - HYPOKALEMIA
[2018-07-09 10:57] LABS: HEMOGLOBIN 13.3 GM/dL (10.7-15.3); MCH 31.8 pg (25.7-33.7); MCHC 33.3 g/dl (32.0-36.0); MEAN CELL VOLUME 95.5 fl (80-96); PLATELET COUNT 294 K/MM3 (134-434); RBC 4.19 M/mm3 (3.60-5.2); RDW 13.2 % (11.6-15.6); WHITE BLOOD COUNT 7.5 K/mm3 (4.0-10.0)
[2018-07-09] MEDS: LIDOCAINE 5% TOPICAL PATCH TP SCH (11:19)
[2018-07-09] MEDS: ASPIRIN COATED 81 MG TABLET.EC PO SCH (11:19)
[2018-07-09] MEDS: POTASSIUM CHLORIDE TABS 20 MEQ TABLET.ER (FP) PO SCH (11:20)
[2018-07-09 11:22] LABS: ANION GAP 9 MMOL/L (8-16); BLOOD UREA NITROGEN 17 mg/dL (7-18); CALCIUM 8.3 mg/dL (8.5-10.1); CHLORIDE 103 mmol/L (98-107); CO2 25 mmol/L (21-32); CREATININE 0.4 mg/dL (0.55-1.3); GLUCOSE,RANDOM 120 mg/dL (74-106); MAGNESIUM 2.1 mg/dL (1.8-2.4); POTASSIUM 3.7 mmol/L (3.5-5.1); SODIUM 137 mmol/L (136-145)
[2018-07-09 12:03] LABS: PHOSPHOROUS 2.9 mg/dL (2.5-4.9)
--- NOTE | 2018-07-09 12:47 | PN ---
Progress Note (short form) - Note Progress Note: Feels well except for hip pain No chest pain, dizziness Vital Signs - 24 hr 07/08/18 07/08/18 07/09/18 16:30 22:00 01:43 Temperature 97.8 F 97.7 F 99.3 F Pulse Rate 60 74 59 L Respiratory 18 18 18 Rate Blood Pressure 95/59 L 124/73 120/75 07/09/18 07/09/18 07/09/18 02:17 05:43 08:53 Temperature 99 F 98.2 F 98.3 F Pulse Rate 55 L 57 L 79 Respiratory 18 18 18 Rate Blood Pressure 129/78 123/72 114/68 Current Medications Generic Name Dose Route Start Last Admin Trade Name Freq PRN Reason Stop Dose Admin Acetaminophen 650 mg 07/08/18 06:54 07/09/18 01:44 Tylenol - PO 650 mg Q6H PRN Administration PAIN OR FEVER Apixaban 5 mg 07/09/18 12:45 Eliquis - PO BID LARISA Atorvastatin Calcium 5 mg 07/08/18 22:00 07/08/18 22:51 Lipitor - PO 5 mg HS LARISA Administration Diltiazem HCl 30 mg 07/08/18 18:00 07/09/18 07:17 Cardizem - PO Not Given Q6HPO LARISA Lidocaine 1 patch 07/08/18 10:00 07/09/18 11:19 Lidoderm Patch - TP 1 patch DAILY LARISA Administration Miscellaneous 1 each 07/08/18 22:00 07/08/18 23:06 Lidoderm Patch Removal MC Not Given DAILY@2200 LARISA Potassium Chloride 20 meq 07/08/18 10:00 07/09/18 11:20 K-Dur - PO 20 meq DAILY LARISA Administration Tramadol HCl 50 mg 07/08/18 09:05 07/08/18 23:46 Ultram - PO 50 mg Q4H PRN Administration PAIN LEVEL 7 - 10 Laboratory Results - last 24 hr 07/08/18 07/09/18 07/09/18 14:30 10:45 10:45 WBC 7.5 RBC 4.19 Hgb 13.3 Hct 40.0 MCV 95.5 MCH 31.8 MCHC 33.3 RDW 13.2 Plt Count 294 MPV 8.0 Sodium 137 Potassium 3.7 Chloride 103 Carbon Dioxide 25 Anion Gap 9 BUN 17 Creatinine 0.4 L Creat Clearance w eGFR > 60 Random Glucose 120 H Calcium 8.3 L Phosphorus 2.9 Magnesium 2.1 Creatine Kinase 76 Troponin I 0.02 S1 s2 RRR, systolic murmur+ Lungs clear Abd- soft, NT No edema Moving her lower extremities PLAN on holter monitor Echo noted After discussing with Dr Feliciano , cardiology- decision made to start Eliquis BID DC ASA dc plan for AM Problem List - Problems (1) Afib Code(s): I48.91 - UNSPECIFIED ATRIAL FIBRILLATION Qualifiers: Atrial fibrillation type: unspecified Qualified Code(s): I48.91 - Unspecified atrial fibrillation (2) Hypokalemia Code(s): E87.6 - HYPOKALEMIA (3) Leg pain, left Code(s): M79.605 - PAIN IN LEFT LEG (4) Paroxysmal A-fib Code(s): I48.0 - PAROXYSMAL ATRIAL FIBRILLATION (5) Palpitations Code(s): R00.2 - PALPITATIONS
[2018-07-09] MEDS ORDERED: PT OWN MED DRAWER 7, Y5N ONE (13:42)
[2018-07-09] MEDS: APIXABAN 5 MG TABLET PO SCH ×2 (13:52→22:54)
--- NOTE | 2018-07-09 15:56 | HOL ---
Hook-up date: 2018-07-08 13:41:00 Duration: 24:00:00 Test Indications: AF Medications: 37795 QRS complexes 2 Ventricular ectopics which represent <1 % of total QRS comp. 4 Supraventricular ectopics which represent <1 % of total QRS comp. * Paced QRS complexs which represent % of total QRS comp. * % of Time Classified as Noise VENTRICULAR ECTOPY 2 Isolated 0 Bigeminal Cycles 0 Couplets 0 Runs 0 Beats in Runs * Beats LONGEST at * BPM at :: -- * Beats FASTEST at * BPM at :: -- SUPRAVENTRICULAR ECTOPY 2 Isolated 1 Couplets 0 Runs 0 Beats in Runs * Beats LONGEST at * BPM at :: -- * Beats FASTEST at * BPM at :: -- HEART RATES 44 MIN at 02:13:28 2018-07-09 65 AVG 131 MAX at 11:12:08 2018-07-09 LONGEST RR 1.624 secs at 21:59:35 2018-07-08 SCANNED BY SOHAIL PAVON ON 07/09/18 1. Baseline sinus rhythm with avg hr 65 and range 44-131. 2. No significant pauses/bradycardia. 3. Rare pacs and pvcs. 4. No vt, vf, afib, aflutter, svt. 5. Pt reported episode of tiredness that occurred during NSR. Confirmed by ABI KAMARA, REBEKA ([id number]) on 07/09/2018 3:55:45 PM Referred By: CRISTINA SANDERSON DR Overread By: REBEKA ALEX MD
[2018-07-09] MEDS ORDERED: cefTRIAXone SODIUM 1 GM VIAL ONE (17:43)
[2018-07-09] MEDS ORDERED: DEXTROSE 5%-WATER - 50 ML IVPB ONE (17:43)
[2018-07-09] MEDS: CEFTRIAXONE 1 GM in DEXTROSE 5%-WATER - 50 ML IVPB SCH (18:09)
[2018-07-09] MEDS ORDERED: POLYETHYLENE GLYCOL 3350 119 GM BTL PO ONE (19:00)
[2018-07-09] MEDS ORDERED: MELATONIN 5 MG TABLETS PO SCH (22:00)
[2018-07-09] MEDS: LIDOCAINE PATCH REMOVAL MC SCH (22:55)
[2018-07-09] MEDS: ATORVASTATIN CA 10 MG TABLET (FP) PO SCH (22:56)
[2018-07-10] MEDS: dilTIAZem HCL 30 MG TABLET (FP) PO SCH ×3 (00:29→11:50)
[2018-07-10] MEDS: traMADol HCL 50 MG TABLET PO PRN ×2 (06:20→10:37)
--- NOTE | 2018-07-10 10:04 | PN ---
Progress Note (short form) - Note Progress Note: Ortho Pt seen and examined- c/o b/l LE tightness,pain Selected Entries 07/10/18 06:18 Temperature 98.1 F Pulse Rate 68 Respiratory 16 Rate Blood Pressure 138/77 B/L LE- + tightness over achilles, and ant tib, + ttp, good rom nvi a/p PT wbat stretching protocol ok to d/c from ortho pov d/w Dr. Marie
[2018-07-10] MEDS ORDERED: cefTRIAXone SODIUM 1 GM VIAL ONE (10:15)
[2018-07-10] MEDS ORDERED: DEXTROSE 5%-WATER - 50 ML IVPB ONE (10:16)
[2018-07-10] MEDS: APIXABAN 5 MG TABLET PO SCH (10:33)
[2018-07-10] MEDS: CEFTRIAXONE 1 GM in DEXTROSE 5%-WATER - 50 ML IVPB SCH (10:33)
[2018-07-10] MEDS: POTASSIUM CHLORIDE TABS 20 MEQ TABLET.ER (FP) PO SCH (10:33)
[2018-07-10] MEDS: LIDOCAINE 5% TOPICAL PATCH TP SCH (10:33)
--- NOTE | 2018-07-10 12:02 | PN ---
Progress Note (short form) - Note Progress Note: patient seen and examined. Chart reviewed. Complains of pain in the legs. Says difficulty walking Both patient and who is at bedside--- wants short-term rehabilitation Denies chest pain Denies shortness of breath. complains of constipation Vital Signs Temp 97.5 F L 07/10/18 10:00 Pulse 71 07/10/18 10:00 Resp 18 07/10/18 10:00 BP 115/71 07/10/18 10:00 Pulse Ox 95 07/09/18 21:00 Intake & Output 07/09/18 07/10/18 07/10/18 23:59 11:59 23:59 Intake Total 500 250 Balance 500 250 Intake: Oral 500 250 Other: Voiding Method Diaper Diaper # Unmeasured Voids Void 2 1 Bowel Movement No Active Medications Acetaminophen (Tylenol -) 650 mg PO Q6H PRN PRN Reason: PAIN OR FEVER Last Admin: 07/09/18 01:44 Dose: 650 mg Apixaban (Eliquis -) 5 mg PO BID [facility] Last Admin: 07/10/18 10:33 Dose: 5 mg Atorvastatin Calcium (Lipitor -) 5 mg PO [facility] Last Admin: 07/09/18 22:56 Dose: 5 mg Diltiazem HCl (Cardizem -) 30 mg PO Q6HPO [facility] Last Admin: 07/10/18 11:50 Dose: 30 mg Ceftriaxone Sodium 1 gm/ (Dextrose) 50 mls @ 100 mls/hr IVPB DAILY [facility] Last Admin: 07/10/18 10:33 Dose: 100 mls/hr Lidocaine (Lidoderm Patch -) 1 patch TP DAILY [facility] Last Admin: 07/10/18 10:33 Dose: 1 patch Melatonin (Melatonin) 10 mg PO [facility] Last Admin: 07/09/18 22:53 Dose: 10 mg Miscellaneous (Lidoderm Patch Removal) 1 each MC DAILY@2200 [facility] Last Admin: 07/09/18 22:55 Dose: Not Given Potassium Chloride (K-Dur -) 20 meq PO DAILY [facility] Last Admin: 07/10/18 10:33 Dose: 20 meq Tramadol HCl (Ultram -) 50 mg PO Q4H PRN PRN Reason: PAIN LEVEL 7 - 10 Last Admin: 07/10/18 10:37 Dose: 50 mg CBC, BMP 07/09/18 10:45 11/01/18 10:45 Microbiology 07/08/18 03:40 Urine Culture - Final Urine - Urine Clean Catch Escherichia Coli Holter monitor----reviewed--- sinus physical exam conscious and cooperative S1 s2 RRR, systolic murmur+ Lungs clear To auscultation Abd- soft, non tender bowel sounds present No edema neuro--alert and awake assessment and plan clinically stable Discussed with patient and in detail also discussed with case finishing machine adjuster Will try to get for short-term rehabilitation Will treat with by mouth antibiotics a few more days orthopedics consult noted----no surgery planned Echocardiogram--- also reviewed----I again discussed with cnmt today---- -- in light of--- abnormal echocardiogram--and paroxysmal A. fib----recommended to continue anticoagulation Patient strongly advised to follow up with cnmt--- in couple of weeks Anticipate discharge later today for short-term rehabilitation Both patient and patient's in agreement Add stool softener also Problem List - Problems (1) Hypokalemia Code(s): E87.6 - HYPOKALEMIA (2) Leg pain, left Code(s): M79.605 - PAIN IN LEFT LEG (3) Paroxysmal A-fib Code(s): I48.0 - PAROXYSMAL ATRIAL FIBRILLATION
[2018-07-10 14:11] VITALS: BP 122/71; PULSE 65; TEMP 97.6
--- NOTE | 2018-07-10 14:12 | DS ---
Physical Examination Vital Signs: Vital Signs Temperature 97.6 F 07/10/18 14:10 Pulse Rate 65 07/10/18 14:10 Respiratory Rate 18 07/10/18 14:10 Blood Pressure 122/71 07/10/18 14:10 O2 Sat by Pulse Oximetry (%) 95 07/10/18 09:00 Findings/Remarks: see today's progress note Labs: CBC, BMP 07/09/18 10:45 07/09/18 10:45 Discharge Summary Reason For Visit: NEW ONSET AFIB Current Active Problems Afib (Acute) Hypokalemia (Acute) Leg pain, left (Acute) Paroxysmal A-fib (Acute) Hospital Course: Patient is a 72 year old female with a significant past medical history of HLD. She presents to the ED for the second time in 2 days. The first visit was on when patient came in for left hip and thigh pain that worsened with movement and had a spine xray which was negative She was discharged on Flexeril and toradol and was to follow up with an orthopedic physician as an outpatient. She returns back to the ER with worsening left hip pain 06/17. Denies any trauma, falls. States that she went to see a chiropractor about 1 week ago who attempted an electrical stimulation procedure which made her pain worse. Patient has an appointment today with an orthopedic surgeon but her left hip pain became so severe prompting her to come back to the ED. In the ED she was noted to have tachycardia and an ekg revealed atrib with RVR. She was given Dilitiazem iv 15mg x1 and PO cardizem 60mg. She is admitted for severe left hip pain and new onset afib with rvr. ER course was notable for: (1) chest xray with new congestive changes (2) trop negative (3) vascular doppler negative for DVT (4) Lovenox 60mg x 1 patient converted to sinus rhythm x-rays did not show--- significant pathology Cardiology and orthopedics consultations were taken Echocardiogram--- showed moderate to severe TR--- septal aneurysm Started on anticoagulation Also treated with antibiotics--- for UTI--- Escherichia coli Patient now stable to go to longterm for short-term rehabilitation All above was discussed in detail with patient and patient's Also discussed with nursing staff as well as caser up Discharge time--- Approximate 35 minutes Condition: Stable - Instructions Referrals: Nicholas Brown MD [Primary Care Provider] - [facility] - Home Medications Comprehensive Discharge Medication List: Ambulatory Orders Atorvastatin Ca [Lipitor] 5 mg PO HS 09/18/15 Azelastine/Fluticasone [Dymista Nasal [place]] 23 gm NS HS 09/18/15 Calcium 1,060 mg PO DAILY 10/24/15 Cholecalciferol (Vitamin D3) [Vitamin D3] 2,600 unit PO DAILY 10/24/15 Docosahexanoic Acid/Epa [Fish Oil Softgel] 1 each PO DAILY 10/24/15 L.acidoph,Paracasei, B.lactis [Probiotic] 1 each PO DAILY 10/24/15 Magnesium Oxide [Magnesium] 930 mg PO DAILY 10/24/15 Multivitamins [Multivit ([facility] Formulary)] 1 tab PO DAILY 10/24/15 Niacin [Niacin ER] 1,000 mg PO DAILY 10/24/15 Famotidine [Pepcid] 40 mg PO BID 02/23/18 Apixaban [Eliquis -] 5 mg PO BID #60 tablet 07/09/18 Cefuroxime Axetil [Ceftin -] 500 mg PO Q12H #12 tablet 07/09/18 Lidocaine Patch Removal [Lidoderm Patch Removal] 1 each MC DAILY@2200 #30 each 07/09/18 Potassium Chloride [K-Dur -] 20 meq PO DAILY #14 tablet.er 07/09/18 Acetaminophen [Tylenol .Regular Strength -] 650 mg PO Q6H PRN tablet 07/10/18 Diltiazem [Cardizem -] 30 mg PO Q6HPO tablet 07/10/18 Melatonin 10 mg PO HS tab 07/10/18 traMADol HCL [Ultram -] 50 mg PO Q8H PRN #30 tablet MDD 3 07/10/18
[2018-07-10] MEDS ORDERED: POLYETHYLENE GLYCOL 3350 119 GM BTL PO ONE (14:45)
--- NOTE | 2018-07-10 16:12 | PN ---
Progress Note, Physician Chief Complaint: Pt A&Ox3; nervous; screamed from leg pain when sat up to get out of bed; once walking, however, with aid of therapists, she no longer cried out, and was able to talk. History of Present Illness: 72 year old white female with a significant past medical history of acid reflux and hyperlipidemia who presents to the emergency department for pain to her left leg and thigh since walking in the city a couple of weeks ago. She states she has an appointment with email campaign specialist at 10am. was seen 07/06/18 in the ED for similar sx, given toradol, instructions on flexeril and ibuprofen, w/o relief. no new trauma. she did receive stimulation treatment by chiropractor for her leg/thigh pain/ paresthesias. The patient denies chest pain, shortness of breath, headache and dizziness. The patient denies fever, chills, nausea, vomit, diarrhea and constipation. The patient denies dysuria, urgency, retention. PCP - Dr. Brown-->Tiffabi - Current Medication List Current Medications: Active Medications Acetaminophen (Tylenol -) 650 mg PO Q6H PRN PRN Reason: PAIN OR FEVER Last Admin: 07/09/18 01:44 Dose: 650 mg Apixaban (Eliquis -) 5 mg PO BID [facility] Last Admin: 07/10/18 10:33 Dose: 5 mg Atorvastatin Calcium (Lipitor -) 5 mg PO HS [facility] Last Admin: 07/09/18 22:56 Dose: 5 mg Diltiazem HCl (Cardizem -) 30 mg PO Q6HPO [facility] Last Admin: 07/10/18 11:50 Dose: 30 mg Ceftriaxone Sodium 1 gm/ (Dextrose) 50 mls @ 100 mls/hr IVPB DAILY [facility] Last Admin: 07/10/18 10:33 Dose: 100 mls/hr Lidocaine (Lidoderm Patch -) 1 patch TP DAILY [facility] Last Admin: 07/10/18 10:33 Dose: 1 patch Melatonin (Melatonin) 10 mg PO [facility] Last Admin: 07/09/18 22:53 Dose: 10 mg Miscellaneous (Lidoderm Patch Removal) 1 each MC DAILY@2200 [facility] Last Admin: 07/09/18 22:55 Dose: Not Given Potassium Chloride (K-Dur -) 20 meq PO DAILY [facility] Last Admin: 07/10/18 10:33 Dose: 20 meq Tramadol HCl (Ultram -) 50 mg PO Q4H PRN PRN Reason: PAIN LEVEL 7 - 10 Last Admin: 07/10/18 10:37 Dose: 50 mg - Objective Vital Signs: Vital Signs Temperature 97.6 F 07/10/18 14:10 Pulse Rate 65 07/10/18 14:10 Respiratory Rate 18 07/10/18 14:10 Blood Pressure 122/71 07/10/18 14:10 O2 Sat by Pulse Oximetry (%) 95 07/10/18 09:00 Labs: CBC, BMP 07/09/18 10:45 07/09/18 10:45 INR, PTT INR 1.16 (0.83-1.09) H 07/08/18 06:08 Problem List - Problems (1) Paroxysmal A-fib Assessment/Plan: AF with RVR on admission. Now in NSR, with periods of sinus bradycardia. ECHO: normal LVEF; normal chamber sizes; moderately severe TR; atrial septal aneurysm. Rec: For diltiazem CD for HR control. Apixaban for anticoagulation. Replete K F/u TSH. Code(s): I48.0 - PAROXYSMAL ATRIAL FIBRILLATION (2) Hypokalemia Assessment/Plan: replete K, and keep 4-4.5 Keep Mg 2-2.4 Keep PO4 2.5-4.9. Code(s): E87.6 - HYPOKALEMIA
== END 2018-07-10 17:14 | DRG 309 ==
LOC: JER 00:43 → JERBED 05:47 → UNDOADMIN 06:39 → J4S 08:23
PROVIDERS: ADMIT Internal Medicine; ATTEND Internal Medicine
DX: I48.0 Paroxysmal atrial fibrillation (principal); N39.0 Urinary tract infection, site not specified; B96.29 Other Escherichia coli [E. coli] as the cause of diseases classified elsewhere; M25.552 Pain in left hip; E87.6 Hypokalemia; E78.5 Hyperlipidemia, unspecified
CPT/HCPCS: 36415; 71045-TC-FY; 73502-TC-LT-FY; 80048; 80053; 80061; 81003; 81015; 82550; 83036; 83721; 83735; 84100; 84443; 84484; 85025; 85027; 85610; 85730; 87086; 87186; 93005; 93010; 93225; 93226; 93306-TC; 93970-TC; 97116-GP; 97161-GP; 99283-25; J7030

== ENCOUNTER 2022-05-31 07:20 | Inpatient (IN) | payer OTHER ==
[2022-05-31 07:48] VITALS: BMI 19.3
[2022-05-31 09:49] LABS: BASO % 0.8 % (0-2.0); EOS % 0.8 % (0-4.5); LYMPH % 22.7 % (8-40); MCH 33.1 pg (25.7-33.7); MCHC 35.1 g/dl (32.0-36.0); MEAN CELL VOLUME 94.2 fl (80-96); MEAN PLT VOLUME 8.4 fl (7.5-11.1); MONO % 9.7 % (3.8-10.2); PLATELET COUNT 237 10^3/uL (134-434); RBC 4.25 M/mm3 (3.60-5.2); RDW 13.7 % (11.6-15.6); WHITE BLOOD COUNT 5.5 K/mm3 (4.0-10.0)
[2022-05-31 10:04] LABS: CALCIUM 8.5 mg/dL (8.5-10.1)
[2022-05-31 10:06] LABS: ALBUMIN 3.8 g/dl (3.4-5.0)
[2022-05-31 10:07] LABS: CREATININE 0.5 mg/dL (0.55-1.3)
[2022-05-31 10:08] LABS: BLOOD UREA NITROGEN 16.5 mg/dL (7-18)
[2022-05-31 10:09] LABS: TOT PROT 6.4 g/dl (6.4-8.2)
[2022-05-31 10:11] LABS: BILIRUBIN,TOTAL 1.1 mg/dL (0.2-1)
[2022-05-31] MEDS ORDERED: traMADol HCL 50 MG TABLET PO PRN (13:51)
[2022-05-31] MEDS ORDERED: ACETAMINOPHEN 325 MG TABLET (FP) PO PRN (13:51)
[2022-05-31] MEDS ORDERED: POLYETHYLENE GLYCOL (HEALTHYLAX) 3350 17 GM PACKET PO PRN (13:51)
[2022-05-31 17:15] LABS: EPI CELLS 7 /uL (0-25.1); HYALINE CASTS 0 /uL (0-3.1); PH,URINE 6.5 (5.0-8.0); URINE APPEARANCE CLEAR; URINE BACTERIA 4 /uL (0-1359); URINE BILIRUBIN NEGATIVE (NEGATIVE); URINE COLOR YELLOW; URINE GLUCOSE (UA) NEGATIVE (NEGATIVE); URINE KETONE 1+ (NEGATIVE); URINE LEUK ESTERASE NEGATIVE (NEGATIVE); URINE NITRITE NEGATIVE (NEGATIVE); URINE PROTEIN NEGATIVE (NEGATIVE); URINE RBC 50 /uL (0-23.9); URINE UROBILINOGEN 0.2 mg/dL (0.2-1.0); URINE WBC 7 /uL (0-25.8)
[2022-05-31] MEDS ORDERED: FAMOTIDINE 20 MG TABLET ONE (21:03)
[2022-05-31] MEDS ORDERED: MELATONIN 5 MG TABLETS ONE (21:03)
[2022-05-31] MEDS ORDERED: dilTIAZem HCL 30 MG TABLET ONE (21:03)
[2022-05-31] MEDS ORDERED: APIXABAN 5 MG TABLET ONE (21:03)
[2022-05-31] MEDS: dilTIAZem HCL 30 MG TABLET PO SCH (21:17)
[2022-05-31] MEDS: FAMOTIDINE 20 MG TABLET PO SCH (21:18)
[2022-05-31] MEDS: MELATONIN 5 MG TABLETS PO SCH (21:18)
[2022-05-31] MEDS: APIXABAN 5 MG TABLET PO SCH (21:18)
[2022-05-31] MEDS: ATORVASTATIN CA 10 MG TABLET (FP) PO SCH (21:18)
[2022-06-01] MEDS: dilTIAZem HCL 30 MG TABLET PO SCH ×4 (00:08→17:30)
[2022-06-01] MEDS: ACETAMINOPHEN 325 MG TABLET (FP) PO PRN (00:08)
[2022-06-01] MEDS ORDERED: LORazepam 2 MG/ML SDV VIAL IVPB ONE (01:32)
[2022-06-01 08:16] LABS: BASO % 0.5 % (0-2.0); EOS % 0.3 % (0-4.5); HEMOGLOBIN 13.9 GM/dL (10.7-15.3); LYMPH % 13.7 % (8-40); MCH 32.5 pg (25.7-33.7); MCHC 33.1 g/dl (32.0-36.0); MEAN CELL VOLUME 97.9 fl (80-96); MEAN PLT VOLUME 8.8 fl (7.5-11.1); MONO % 11.7 % (3.8-10.2); NEUT % 73.8 % (42.8-82.8); PLATELET COUNT 227 10^3/uL (134-434); RBC 4.29 M/mm3 (3.60-5.2); RDW 13.8 % (11.6-15.6); WHITE BLOOD COUNT 10.5 K/mm3 (4.0-10.0)
[2022-06-01] MEDS: APIXABAN 5 MG TABLET PO SCH ×2 (09:00→21:20)
[2022-06-01] MEDS: FAMOTIDINE 20 MG TABLET PO SCH ×2 (09:00→21:19)
[2022-06-01 11:09] LABS: CALCIUM 9.2 mg/dL (8.5-10.1)
[2022-06-01 11:10] LABS: ALBUMIN 3.9 g/dl (3.4-5.0); BLOOD UREA NITROGEN 17.3 mg/dL (7-18); MAGNESIUM 2.1 mg/dL (1.8-2.4)
[2022-06-01 11:13] LABS: CREATININE 0.7 mg/dL (0.55-1.3)
[2022-06-01 11:14] LABS: TOT PROT 6.5 g/dl (6.4-8.2)
[2022-06-01 11:15] LABS: BILIRUBIN,TOTAL 1.1 mg/dL (0.2-1)
[2022-06-01] MEDS: ATORVASTATIN CA 10 MG TABLET (FP) PO SCH (21:18)
[2022-06-01] MEDS: MELATONIN 5 MG TABLETS PO SCH (21:35)
[2022-06-02] MEDS: dilTIAZem HCL 30 MG TABLET PO SCH ×4 (00:14→17:21)
[2022-06-02] MEDS ORDERED: LORazepam 2 MG/ML SDV VIAL IVPB ONE (01:28)
[2022-06-02] MEDS: FAMOTIDINE 20 MG TABLET PO SCH ×2 (09:03→21:29)
[2022-06-02] MEDS: APIXABAN 5 MG TABLET PO SCH ×2 (09:04→21:31)
[2022-06-02] MEDS: ATORVASTATIN CA 10 MG TABLET (FP) PO SCH (21:28)
[2022-06-02] MEDS: MELATONIN 5 MG TABLETS PO SCH (21:30)
[2022-06-03] MEDS: dilTIAZem HCL 30 MG TABLET PO SCH ×4 (00:12→18:07)
[2022-06-03] MEDS ORDERED: LORazepam 2 MG/ML SDV VIAL IVPB ONE (02:45)
[2022-06-03] MEDS: APIXABAN 5 MG TABLET PO SCH ×2 (10:04→22:33)
[2022-06-03] MEDS: FAMOTIDINE 20 MG TABLET PO SCH ×2 (10:04→22:33)
[2022-06-03] MEDS: AMINO ACIDS 4.25%/D5W 1,000 ML IV SCH (15:42)
[2022-06-03] MEDS: ACETAMINOPHEN 325 MG TABLET (FP) PO PRN (15:45)
[2022-06-03] MEDS: MELATONIN 5 MG TABLETS PO SCH (22:33)
[2022-06-03] MEDS: ATORVASTATIN CA 10 MG TABLET (FP) PO SCH (22:33)
[2022-06-04] MEDS: AMINO ACIDS 4.25%/D5W 1,000 ML IV SCH ×2 (03:30→15:15)
[2022-06-04] MEDS: dilTIAZem HCL 30 MG TABLET PO SCH ×4 (06:29→18:17)
[2022-06-04] MEDS: FAMOTIDINE 20 MG TABLET PO SCH ×2 (09:58→21:29)
[2022-06-04] MEDS: APIXABAN 5 MG TABLET PO SCH ×2 (09:58→21:28)
[2022-06-04 16:21] LABS: BASO % 0.4 % (0-2.0); EOS % 1.3 % (0-4.5); HEMATOCRIT 44.9 % (32.4-45.2); HEMOGLOBIN 14.6 GM/dL (10.7-15.3); LYMPH % 14.9 % (8-40); MCH 30.7 pg (25.7-33.7); MCHC 32.4 g/dl (32.0-36.0); MEAN CELL VOLUME 94.7 fl (80-96); MEAN PLT VOLUME 9.1 fl (7.5-11.1); MONO % 11.9 % (3.8-10.2); NEUT % 71.5 % (42.8-82.8); PLATELET COUNT 266 10^3/uL (134-434); RBC 4.74 M/mm3 (3.60-5.2); RDW 13.7 % (11.6-15.6); WHITE BLOOD COUNT 7.9 K/mm3 (4.0-10.0)
[2022-06-04] MEDS: MELATONIN 5 MG TABLETS PO SCH ×2 (18:44→21:36)
[2022-06-04] MEDS: ATORVASTATIN CA 10 MG TABLET (FP) PO SCH (21:28)
[2022-06-05] MEDS: dilTIAZem HCL 30 MG TABLET PO SCH ×3 (00:54→11:54)
[2022-06-05] MEDS: AMINO ACIDS 4.25%/D5W 1,000 ML IV SCH (03:46)
[2022-06-05 09:22] VITALS: BP 131/82; PULSE 88; RESP 18; TEMP 98.8
[2022-06-05] MEDS: FAMOTIDINE 20 MG TABLET PO SCH (09:23)
[2022-06-05] MEDS: APIXABAN 5 MG TABLET PO SCH (09:23)
== END 2022-06-05 14:11 | DRG 57 ==
LOC: JER 07:20 → JERBED 11:20 → OBSVTOIN 13:52 → J4W 23:36
PROVIDERS: ADMIT Family Medicine; ATTEND Family Medicine
DX: G30.9 Alzheimer's disease, unspecified (principal); F02.80 Dementia in other diseases classified elsewhere, unspecified severity, without behavioral disturbance, psychotic disturbance, mood disturbance, and anxiety; E87.6 Hypokalemia; R00.1 Bradycardia, unspecified; R29.6 Repeated falls; M79.605 Pain in left leg; R00.2 Palpitations; I48.0 Paroxysmal atrial fibrillation; E78.5 Hyperlipidemia, unspecified; M50.30 Other cervical disc degeneration, unspecified cervical region; W18.30XA Fall on same level, unspecified, initial encounter; Y92.098 Other place in other non-institutional residence as the place of occurrence of the external cause
CPT/HCPCS: 36415; 70450-TC; 71045-TC-FY; 72125-TC; 73590-TC-RT-FY; 80053; 80061; 81003; 83735; 84443; 84484; 85025; 87086; 93005; 93010; 93306-TC; 97162-GP; 99285-25; C9803-CS; G0378; U0003; U0005

== ENCOUNTER 2022-06-05 15:19 | Observation (INO) | payer OTHER ==
[2022-06-05 17:29] LABS: BASO % 0.6 % (0-2.0); EOS % 0.7 % (0-4.5); HEMOGLOBIN 15.5 GM/dL (10.7-15.3); LYMPH % 13.1 % (8-40); MCH 31.7 pg (25.7-33.7); MCHC 33.8 g/dl (32.0-36.0); MEAN CELL VOLUME 93.8 fl (80-96); MEAN PLT VOLUME 8.8 fl (7.5-11.1); MONO % 13.6 % (3.8-10.2); PLATELET COUNT 304 10^3/uL (134-434); RDW 13.4 % (11.6-15.6); WHITE BLOOD COUNT 8.3 K/mm3 (4.0-10.0)
[2022-06-05 17:32] LABS: EPI CELLS 8 /uL (0-25.1); HYALINE CASTS 1 /uL (0-3.1); PH,URINE 5.5 (5.0-8.0); URINE APPEARANCE CLEAR; URINE BACTERIA 4 /uL (0-1359); URINE BILIRUBIN NEGATIVE (NEGATIVE); URINE COLOR YELLOW; URINE GLUCOSE (UA) NEGATIVE (NEGATIVE); URINE KETONE NEGATIVE (NEGATIVE); URINE LEUK ESTERASE 1+ (NEGATIVE); URINE NITRITE NEGATIVE (NEGATIVE); URINE PROTEIN TRACE (NEGATIVE); URINE RBC 157 /uL (0-23.9); URINE UROBILINOGEN 0.2 mg/dL (0.2-1.0); URINE WBC 20 /uL (0-25.8)
[2022-06-05 17:57] LABS: ALBUMIN 3.6 g/dl (3.4-5.0); BLOOD UREA NITROGEN 17.2 mg/dL (7-18); CALCIUM 9.3 mg/dL (8.5-10.1)
[2022-06-05 18:00] LABS: CREATININE 0.6 mg/dL (0.55-1.3)
[2022-06-05] MEDS ORDERED: ACETAMINOPHEN 325 MG TABLET (FP) PO PRN (18:01)
[2022-06-05] MEDS ORDERED: POLYETHYLENE GLYCOL (HEALTHYLAX) 3350 17 GM PACKET PO PRN ×2 (18:01→18:04)
[2022-06-05 18:02] LABS: BILIRUBIN,TOTAL 0.4 mg/dL (0.2-1); TOT PROT 6.7 g/dl (6.4-8.2)
[2022-06-05 20:58] VITALS: RESP 18
[2022-06-05] MEDS ORDERED: APIXABAN 5 MG TABLET ONE (21:24)
[2022-06-05] MEDS ORDERED: FAMOTIDINE 20 MG TABLET ONE (21:25)
[2022-06-05] MEDS ORDERED: MELATONIN 5 MG TABLETS ONE (21:25)
[2022-06-05] MEDS ORDERED: ATORVASTATIN CA 10 MG TABLET (FP) ONE (21:25)
[2022-06-05] MEDS ORDERED: ATORVASTATIN CA 10 MG TABLET (FP) PO SCH (22:00)
[2022-06-05] MEDS ORDERED: MELATONIN 5 MG TABLETS PO SCH (22:00)
[2022-06-05] MEDS: APIXABAN 5 MG TABLET PO SCH (22:04)
[2022-06-06 00:56] VITALS: BMI 15.2
[2022-06-06] MEDS: FAMOTIDINE 20 MG TABLET PO SCH ×2 (01:04→09:32)
[2022-06-06] MEDS: dilTIAZem HCL 30 MG TABLET PO SCH ×4 (01:28→17:57)
[2022-06-06] MEDS: APIXABAN 5 MG TABLET PO SCH (09:32)
[2022-06-06] MEDS ORDERED: MULTIVITAMINS (DAILY MVI) TABLET (FP) PO SCH (10:00)
[2022-06-06 10:01] LABS: BASO % 0.7 % (0-2.0); EOS % 0.7 % (0-4.5); HEMATOCRIT 44.5 % (32.4-45.2); HEMOGLOBIN 14.9 GM/dL (10.7-15.3); LYMPH % 16.6 % (8-40); MCH 31.7 pg (25.7-33.7); MCHC 33.4 g/dl (32.0-36.0); MEAN CELL VOLUME 94.7 fl (80-96); MEAN PLT VOLUME 8.9 fl (7.5-11.1); MONO % 13.1 % (3.8-10.2); NEUT % 68.9 % (42.8-82.8); PLATELET COUNT 319 10^3/uL (134-434); RDW 13.3 % (11.6-15.6); WHITE BLOOD COUNT 7.2 K/mm3 (4.0-10.0)
[2022-06-06 21:13] VITALS: BP 117/73; PULSE 65; TEMP 98.9
== END 2022-06-06 20:20 ==
LOC: JER 15:19 → UNDOADMOB 16:01 → JERBED 16:01 → OBSVTOIN 16:02 → INTOOBSV 16:02 → JERBED 06-06 00:17 → J5S 06-06 00:17 → JERBED 06-06 13:14 → J5S 06-06 13:14
PROVIDERS: ADMIT Family Medicine; ATTEND Family Medicine
DX: G30.9 Alzheimer's disease, unspecified (principal); F02.80 Dementia in other diseases classified elsewhere, unspecified severity, without behavioral disturbance, psychotic disturbance, mood disturbance, and anxiety; R00.0 Tachycardia, unspecified; R53.1 Weakness; Z79.01 Long term (current) use of anticoagulants; I10 Essential (primary) hypertension; I48.91 Unspecified atrial fibrillation; K21.9 Gastro-esophageal reflux disease without esophagitis; F17.210 Nicotine dependence, cigarettes, uncomplicated
CPT/HCPCS: 36415; 71045-TC-FY; 80053; 81003; 85025; 87086; 93005; 93010; 99285-25; C9803-CS; G0378; U0003; U0005

== ENCOUNTER 2022-06-16 17:34 | Emergency (ER) | payer OTHER ==
[2022-06-16 18:23] VITALS: TEMP 98; BMI 22.6
[2022-06-16 19:16] LABS: BASO % 0.5 % (0-2.0); EOS % 0.9 % (0-4.5); HEMOGLOBIN 13.1 GM/dL (10.7-15.3); LYMPH % 13.1 % (8-40); MCH 30.9 pg (25.7-33.7); MCHC 32.6 g/dl (32.0-36.0); MEAN CELL VOLUME 94.8 fl (80-96); MEAN PLT VOLUME 8.2 fl (7.5-11.1); NEUT % 78.5 % (42.8-82.8); PLATELET COUNT 362 10^3/uL (134-434); RBC 4.22 M/mm3 (3.60-5.2); RDW 13.6 % (11.6-15.6); WHITE BLOOD COUNT 9.8 K/mm3 (4.0-10.0)
[2022-06-16 19:41] LABS: CALCIUM 8.8 mg/dL (8.5-10.1)
[2022-06-16 19:42] LABS: BLOOD UREA NITROGEN 15.1 mg/dL (7-18); MAGNESIUM 2.3 mg/dL (1.8-2.4)
[2022-06-16 19:43] LABS: INR 1.28 (0.83-1.09); PROTHROMBIN TIME (PATIENT) 14.8 SEC (9.7-13.0)
[2022-06-16 19:44] LABS: ACTIVATED PTT 31.3 SECONDS (25.2-36.5)
[2022-06-16 19:45] LABS: CREATININE 0.5 mg/dL (0.55-1.3)
[2022-06-16 19:47] LABS: BILIRUBIN,TOTAL 0.4 mg/dL (0.2-1); TOT PROT 5.7 g/dl (6.4-8.2)
[2022-06-16 21:24] VITALS: BP 117/74; PULSE 92; RESP 18
== END 2022-06-16 21:48 ==
LOC: JER 17:34
PROC: 0JQ10ZZ Repair Face Subcutaneous Tissue and Fascia, Open Approach (ICD-10-PCS; principal; 2022-06-16)
DX: S01.111A Laceration without foreign body of right eyelid and periocular area, initial encounter (principal); W19.XXXA Unspecified fall, initial encounter; Y92.9 Unspecified place or not applicable
CPT/HCPCS: 0241U-QW; 36415; 70450-TC; 71045-TC-FY; 72125-TC; 72170-TC-FY; 80053; 83735; 84484; 85025; 85610; 85730; 93005; 93010; 99285-25

== ENCOUNTER 2022-06-28 16:40 | Observation (INO) | payer OTHER ==
[2022-06-28 19:36] LABS: URINE APPEARANCE CLEAR; URINE BILIRUBIN NEGATIVE (NEGATIVE); URINE COLOR YELLOW; URINE GLUCOSE (UA) NEGATIVE (NEGATIVE); URINE KETONE NEGATIVE (NEGATIVE); URINE LEUK ESTERASE NEGATIVE (NEGATIVE); URINE NITRITE NEGATIVE (NEGATIVE); URINE PROTEIN NEGATIVE (NEGATIVE); URINE UROBILINOGEN 0.2 mg/dL (0.2-1.0)
[2022-06-28 19:37] LABS: BASO % 0.6 % (0-2.0); EOS % 0.9 % (0-4.5); HEMATOCRIT 38.3 % (32.4-45.2); HEMOGLOBIN 12.7 GM/dL (10.7-15.3); LYMPH % 17.4 % (8-40); MCH 31.6 pg (25.7-33.7); MCHC 33.1 g/dl (32.0-36.0); MEAN CELL VOLUME 95.5 fl (80-96); MEAN PLT VOLUME 8.9 fl (7.5-11.1); MONO % 9.1 % (3.8-10.2); PLATELET COUNT 351 10^3/uL (134-434); RBC 4.02 M/mm3 (3.60-5.2); RDW 13.8 % (11.6-15.6); WHITE BLOOD COUNT 7.9 K/mm3 (4.0-10.0)
[2022-06-28 20:17] LABS: CALCIUM 8.7 mg/dL (8.5-10.1)
[2022-06-28 20:18] LABS: ALBUMIN 3.2 g/dl (3.4-5.0); MAGNESIUM 2.2 mg/dL (1.8-2.4)
[2022-06-28 20:20] LABS: CREATININE 0.5 mg/dL (0.55-1.3)
[2022-06-28 20:21] LABS: TOT PROT 5.6 g/dl (6.4-8.2)
[2022-06-28 20:22] LABS: BILIRUBIN,TOTAL 0.2 mg/dL (0.2-1)
[2022-06-29] MEDS: dilTIAZem HCL 30 MG TABLET PO SCH ×3 (06:51→21:28)
[2022-06-29 08:53] LABS: HEMATOCRIT 38.5 % (32.4-45.2); HEMOGLOBIN 12.5 GM/dL (10.7-15.3); MCH 31.2 pg (25.7-33.7); MCHC 32.6 g/dl (32.0-36.0); MEAN CELL VOLUME 95.6 fl (80-96); MEAN PLT VOLUME 8.3 fl (7.5-11.1); PLATELET COUNT 343 10^3/uL (134-434); RBC 4.03 M/mm3 (3.60-5.2); RDW 13.7 % (11.6-15.6); WHITE BLOOD COUNT 4.6 K/mm3 (4.0-10.0)
[2022-06-29 09:15] LABS: BLOOD UREA NITROGEN 10.4 mg/dL (7-18); CALCIUM 8.5 mg/dL (8.5-10.1)
[2022-06-29 09:19] LABS: CREATININE 0.4 mg/dL (0.55-1.3)
[2022-06-29] MEDS: PANTOPRAZOLE 40 MG TABLET PO SCH (09:46)
[2022-06-29] MEDS: APIXABAN 5 MG TABLET PO SCH ×2 (09:46→21:28)
[2022-06-29] MEDS ORDERED: ENOXAPARIN NA (PORCINE) 30 MG/0.3 ML DISP.SYRIN SQ SCH (10:00)
[2022-06-29] MEDS: ATORVASTATIN CA 10 MG TABLET (FP) PO SCH (21:28)
[2022-06-30] MEDS: dilTIAZem HCL 30 MG TABLET PO SCH ×3 (05:55→21:36)
[2022-06-30] MEDS: APIXABAN 5 MG TABLET PO SCH ×2 (10:01→21:37)
[2022-06-30] MEDS: PANTOPRAZOLE 40 MG TABLET PO SCH (10:01)
[2022-06-30] MEDS: ATORVASTATIN CA 10 MG TABLET (FP) PO SCH (21:37)
[2022-07-01] MEDS: dilTIAZem HCL 30 MG TABLET PO SCH ×3 (06:20→22:22)
[2022-07-01] MEDS: APIXABAN 5 MG TABLET PO SCH ×2 (11:12→21:31)
[2022-07-01] MEDS: PANTOPRAZOLE 40 MG TABLET PO SCH (11:12)
[2022-07-01 14:31] VITALS: BMI 16.7
[2022-07-01] MEDS: ATORVASTATIN CA 10 MG TABLET (FP) PO SCH (21:31)
[2022-07-02] MEDS: dilTIAZem HCL 30 MG TABLET PO SCH ×3 (05:44→23:09)
[2022-07-02] MEDS: PANTOPRAZOLE 40 MG TABLET PO SCH (09:35)
[2022-07-02] MEDS: APIXABAN 5 MG TABLET PO SCH ×2 (09:35→23:08)
[2022-07-02] MEDS: ATORVASTATIN CA 10 MG TABLET (FP) PO SCH (23:08)
[2022-07-03] MEDS: dilTIAZem HCL 30 MG TABLET PO SCH ×3 (07:08→21:21)
[2022-07-03] MEDS: PANTOPRAZOLE 40 MG TABLET PO SCH (10:01)
[2022-07-03] MEDS: APIXABAN 5 MG TABLET PO SCH ×2 (10:01→21:21)
[2022-07-03] MEDS: MIRTAZAPINE 15 MG TABLET (FP) PO SCH (21:19)
[2022-07-03] MEDS: ATORVASTATIN CA 10 MG TABLET (FP) PO SCH (21:21)
[2022-07-04] MEDS: dilTIAZem HCL 30 MG TABLET PO SCH ×3 (05:39→22:10)
[2022-07-04] MEDS: PANTOPRAZOLE 40 MG TABLET PO SCH (09:38)
[2022-07-04] MEDS: APIXABAN 5 MG TABLET PO SCH ×2 (09:38→22:10)
[2022-07-04] MEDS: ATORVASTATIN CA 10 MG TABLET (FP) PO SCH (22:10)
[2022-07-04] MEDS: MIRTAZAPINE 15 MG TABLET (FP) PO SCH (22:10)
[2022-07-05] MEDS: dilTIAZem HCL 30 MG TABLET PO SCH (05:47)
[2022-07-05] MEDS: PANTOPRAZOLE 40 MG TABLET PO SCH (09:57)
[2022-07-05] MEDS: APIXABAN 5 MG TABLET PO SCH ×2 (09:57→21:45)
[2022-07-05] MEDS: ATORVASTATIN CA 10 MG TABLET (FP) PO SCH (21:45)
[2022-07-05] MEDS: MIRTAZAPINE 15 MG TABLET (FP) PO SCH (21:45)
[2022-07-06] MEDS: APIXABAN 5 MG TABLET PO SCH ×2 (10:01→21:27)
[2022-07-06] MEDS: PANTOPRAZOLE 40 MG TABLET PO SCH (10:02)
[2022-07-06] MEDS: ATORVASTATIN CA 10 MG TABLET (FP) PO SCH (21:27)
[2022-07-06] MEDS: MIRTAZAPINE 15 MG TABLET (FP) PO SCH (21:27)
[2022-07-07] MEDS: APIXABAN 5 MG TABLET PO SCH ×2 (10:01→22:42)
[2022-07-07] MEDS: PANTOPRAZOLE 40 MG TABLET PO SCH (10:01)
[2022-07-07 10:28] LABS: BASO % 1.3 % (0-2.0); EOS % 2.2 % (0-4.5); HEMATOCRIT 40.1 % (32.4-45.2); HEMOGLOBIN 13.4 GM/dL (10.7-15.3); LYMPH % 21.5 % (8-40); MCH 32.1 pg (25.7-33.7); MCHC 33.5 g/dl (32.0-36.0); MEAN PLT VOLUME 8.7 fl (7.5-11.1); MONO % 9.6 % (3.8-10.2); NEUT % 65.4 % (42.8-82.8); PLATELET COUNT 294 10^3/uL (134-434); RBC 4.18 M/mm3 (3.60-5.2); RDW 13.9 % (11.6-15.6); WHITE BLOOD COUNT 5.9 K/mm3 (4.0-10.0)
[2022-07-07 10:55] LABS: ALBUMIN 3.2 g/dl (3.4-5.0); BLOOD UREA NITROGEN 17.2 mg/dL (7-18); CALCIUM 8.9 mg/dL (8.5-10.1)
[2022-07-07 10:58] LABS: CREATININE 0.4 mg/dL (0.55-1.3)
[2022-07-07 11:00] LABS: BILIRUBIN,TOTAL 0.4 mg/dL (0.2-1); TOT PROT 5.8 g/dl (6.4-8.2)
[2022-07-07] MEDS: MIRTAZAPINE 15 MG TABLET (FP) PO SCH (22:42)
[2022-07-07] MEDS: ATORVASTATIN CA 10 MG TABLET (FP) PO SCH (22:43)
[2022-07-08] MEDS: PANTOPRAZOLE 40 MG TABLET PO SCH (09:50)
[2022-07-08] MEDS: APIXABAN 5 MG TABLET PO SCH ×2 (09:50→22:14)
[2022-07-08] MEDS: MIRTAZAPINE 15 MG TABLET (FP) PO SCH (22:14)
[2022-07-08] MEDS: ATORVASTATIN CA 10 MG TABLET (FP) PO SCH (22:14)
[2022-07-09] MEDS: APIXABAN 5 MG TABLET PO SCH ×2 (09:51→22:36)
[2022-07-09] MEDS: PANTOPRAZOLE 40 MG TABLET PO SCH (09:51)
[2022-07-09 15:40] VITALS: RESP 18
[2022-07-09] MEDS: ATORVASTATIN CA 10 MG TABLET (FP) PO SCH (22:36)
[2022-07-09] MEDS: MIRTAZAPINE 15 MG TABLET (FP) PO SCH (22:36)
[2022-07-10 09:10] VITALS: BP 105/65; PULSE 78; TEMP 98
[2022-07-10] MEDS: APIXABAN 5 MG TABLET PO SCH (09:11)
[2022-07-10] MEDS: PANTOPRAZOLE 40 MG TABLET PO SCH (09:11)
== END 2022-07-10 11:55 | disposition home or self-care (01) ==
LOC: JER 16:40 → INTOOBSV 20:47 → JERBED 20:47 → UNDOADMOB 20:47 → J5S 22:26 → JERBED 06-29 00:22 → J5S 07-01 13:23
PROVIDERS: ADMIT Internal Medicine; ATTEND Family Medicine
DX: G30.9 Alzheimer's disease, unspecified (principal); F02.80 Dementia in other diseases classified elsewhere, unspecified severity, without behavioral disturbance, psychotic disturbance, mood disturbance, and anxiety; I48.91 Unspecified atrial fibrillation; R26.2 Difficulty in walking, not elsewhere classified; I10 Essential (primary) hypertension; G31.83 Neurocognitive disorder with Lewy bodies; R26.9 Unspecified abnormalities of gait and mobility
CPT/HCPCS: 36415; 71045-TC-FY; 80048; 80053; 81003; 83735; 84484; 85025; 85027; 87086; 93005; 93010; 97116-GP; 97162-GP; 99285-25; C9803-CS; G0378; U0003; U0005

== ENCOUNTER 2022-07-12 14:53 | Observation (INO) | payer OTHER ==
[2022-07-12 19:00] LABS: BASO % 0.5 % (0-2.0); EOS % 0.9 % (0-4.5); HEMATOCRIT 40.4 % (32.4-45.2); HEMOGLOBIN 13.7 GM/dL (10.7-15.3); LYMPH % 15.5 % (8-40); MCH 32.2 pg (25.7-33.7); MCHC 33.8 g/dl (32.0-36.0); MEAN CELL VOLUME 95.4 fl (80-96); MEAN PLT VOLUME 9.1 fl (7.5-11.1); MONO % 9.7 % (3.8-10.2); NEUT % 73.4 % (42.8-82.8); PLATELET COUNT 354 10^3/uL (134-434); RBC 4.24 M/mm3 (3.60-5.2); WHITE BLOOD COUNT 8.7 K/mm3 (4.0-10.0)
[2022-07-12 19:08] LABS: INR 1.2 (0.83-1.09); PROTHROMBIN TIME (PATIENT) 13.8 SEC (9.7-13.0)
[2022-07-12 19:23] LABS: ALBUMIN 3.6 g/dl (3.4-5.0); CALCIUM 9.2 mg/dL (8.5-10.1)
[2022-07-12 19:27] LABS: CREATININE 0.4 mg/dL (0.55-1.3)
[2022-07-12 19:29] LABS: BILIRUBIN,TOTAL 0.5 mg/dL (0.2-1); TOT PROT 6.4 g/dl (6.4-8.2)
[2022-07-12] MEDS ORDERED: MIDAZOLAM HCL 5 MG/1 ML Single Dose Vial IVPUSH ONE (20:59)
[2022-07-12] MEDS ORDERED: MIDAZOLAM HCL 5 MG/1 ML Single Dose Vial ONE (21:01)
[2022-07-13 07:22] LABS: BASO % 0.6 % (0-2.0); EOS % 0.3 % (0-4.5); HEMATOCRIT 38.9 % (32.4-45.2); HEMOGLOBIN 12.9 GM/dL (10.7-15.3); LYMPH % 8.7 % (8-40); MCH 31.6 pg (25.7-33.7); MCHC 33.2 g/dl (32.0-36.0); MEAN CELL VOLUME 95.4 fl (80-96); MEAN PLT VOLUME 9.4 fl (7.5-11.1); MONO % 8.7 % (3.8-10.2); NEUT % 81.7 % (42.8-82.8); PLATELET COUNT 323 10^3/uL (134-434); RBC 4.08 M/mm3 (3.60-5.2); RDW 13.9 % (11.6-15.6); WHITE BLOOD COUNT 8.2 K/mm3 (4.0-10.0)
[2022-07-13 07:47] LABS: BLOOD UREA NITROGEN 14.3 mg/dL (7-18); CALCIUM 8.8 mg/dL (8.5-10.1)
[2022-07-13 07:52] LABS: CREATININE 0.5 mg/dL (0.55-1.3)
[2022-07-13] MEDS ORDERED: PANTOPRAZOLE 40 MG TABLET PO ONE (09:37)
[2022-07-13] MEDS ORDERED: APIXABAN 5 MG TABLET ONE (09:38)
[2022-07-13] MEDS ORDERED: MULTIVITAMINS (DAILY MVI) TABLET (FP) ONE (09:38)
[2022-07-13] MEDS: PANTOPRAZOLE 40 MG TABLET PO SCH (09:54)
[2022-07-13] MEDS: MULTIVITAMINS (DAILY MVI) TABLET (FP) PO SCH (09:54)
[2022-07-13] MEDS: APIXABAN 5 MG TABLET PO SCH ×2 (09:54→21:43)
[2022-07-13 15:35] VITALS: BMI 21.6
[2022-07-13] MEDS: MIRTAZAPINE 15 MG TABLET (FP) PO SCH (21:43)
[2022-07-13] MEDS: ATORVASTATIN CA 10 MG TABLET (FP) PO SCH (21:43)
[2022-07-13] MEDS: POLYETHYLENE GLYCOL (HEALTHYLAX) 3350 17 GM PACKET PO SCH (21:43)
[2022-07-14] MEDS: PANTOPRAZOLE 40 MG TABLET PO SCH (10:36)
[2022-07-14] MEDS: APIXABAN 5 MG TABLET PO SCH ×2 (10:36→21:10)
[2022-07-14] MEDS: MULTIVITAMINS (DAILY MVI) TABLET (FP) PO SCH (10:36)
[2022-07-14] MEDS: MIRTAZAPINE 15 MG TABLET (FP) PO SCH (21:10)
[2022-07-14] MEDS: POLYETHYLENE GLYCOL (HEALTHYLAX) 3350 17 GM PACKET PO SCH (21:10)
[2022-07-14] MEDS: ATORVASTATIN CA 10 MG TABLET (FP) PO SCH (21:10)
[2022-07-15 09:31] LABS: EPI CELLS 18 /uL (0-25.1); HYALINE CASTS 2 /uL (0-3.1); PH,URINE 5.5 (5.0-8.0); URINE APPEARANCE TURBID; URINE BACTERIA >9,000 /uL (0-1359); URINE BILIRUBIN 1+ (NEGATIVE); URINE COLOR DK YELLOW; URINE GLUCOSE (UA) NEGATIVE (NEGATIVE); URINE KETONE NEGATIVE (NEGATIVE); URINE LEUK ESTERASE TRACE (NEGATIVE); URINE NITRITE POSITIVE (NEGATIVE); URINE PROTEIN TRACE (NEGATIVE); URINE RBC 32 /uL (0-23.9); URINE WBC 53 /uL (0-25.8)
[2022-07-15] MEDS: MEMANTINE HCL 5 MG TABLET (UD) PO SCH ×2 (10:08→21:54)
[2022-07-15] MEDS: MULTIVITAMINS (DAILY MVI) TABLET (FP) PO SCH (10:08)
[2022-07-15] MEDS: PANTOPRAZOLE 40 MG TABLET PO SCH (10:08)
[2022-07-15] MEDS: APIXABAN 5 MG TABLET PO SCH ×2 (11:25→21:54)
[2022-07-15] MEDS: ACETAMINOPHEN 325 MG TABLET (FP) PO PRN (18:15)
[2022-07-15] MEDS: ATORVASTATIN CA 10 MG TABLET (FP) PO SCH (21:53)
[2022-07-15] MEDS: MIRTAZAPINE 15 MG TABLET (FP) PO SCH (21:53)
[2022-07-15] MEDS: POLYETHYLENE GLYCOL (HEALTHYLAX) 3350 17 GM PACKET PO SCH (21:54)
[2022-07-16] MEDS: ACETAMINOPHEN 325 MG TABLET (FP) PO PRN ×2 (03:56→10:52)
[2022-07-16] MEDS: MULTIVITAMINS (DAILY MVI) TABLET (FP) PO SCH (09:08)
[2022-07-16] MEDS: PANTOPRAZOLE 40 MG TABLET PO SCH (09:08)
[2022-07-16] MEDS: MEMANTINE HCL 5 MG TABLET (UD) PO SCH ×2 (09:08→21:52)
[2022-07-16] MEDS: APIXABAN 5 MG TABLET PO SCH ×2 (10:51→21:53)
[2022-07-16] MEDS: POLYETHYLENE GLYCOL (HEALTHYLAX) 3350 17 GM PACKET PO SCH (21:52)
[2022-07-16] MEDS: MIRTAZAPINE 15 MG TABLET (FP) PO SCH (21:52)
[2022-07-16] MEDS: ATORVASTATIN CA 10 MG TABLET (FP) PO SCH (21:53)
[2022-07-17 08:55] VITALS: RESP 20
[2022-07-17] MEDS: MEMANTINE HCL 5 MG TABLET (UD) PO SCH (08:59)
[2022-07-17] MEDS: ACETAMINOPHEN 325 MG TABLET (FP) PO PRN (08:59)
[2022-07-17] MEDS: MULTIVITAMINS (DAILY MVI) TABLET (FP) PO SCH (08:59)
[2022-07-17] MEDS: APIXABAN 5 MG TABLET PO SCH (09:00)
[2022-07-17] MEDS: PANTOPRAZOLE 40 MG TABLET PO SCH (09:00)
[2022-07-17 14:23] VITALS: BP 107/65; PULSE 62; TEMP 98.3
[2022-07-17] MEDS ORDERED: NITROFURANTOIN MACROCRYSTAL 50 MG CAPSULE (FP) PO SCH (18:00)
== END 2022-07-17 20:46 ==
LOC: SUPCPDRO 14:53 → JER 14:53 → JERBED 07-13 01:39 → J6S 07-13 18:38
PROVIDERS: ADMIT Internal Medicine; ATTEND Family Medicine
PROC: 3E033GC Introduction of Other Therapeutic Substance into Peripheral Vein, Percutaneous Approach (ICD-10-PCS; principal; 2022-07-13)
DX: R26.2 Difficulty in walking, not elsewhere classified (principal); M54.40 Lumbago with sciatica, unspecified side; N39.0 Urinary tract infection, site not specified; I10 Essential (primary) hypertension; I48.91 Unspecified atrial fibrillation; Z79.01 Long term (current) use of anticoagulants; G30.9 Alzheimer's disease, unspecified; F02.80 Dementia in other diseases classified elsewhere, unspecified severity, without behavioral disturbance, psychotic disturbance, mood disturbance, and anxiety; K21.9 Gastro-esophageal reflux disease without esophagitis; Z22.39 Carrier of other specified bacterial diseases; Z20.822 Contact with and (suspected) exposure to COVID-19; Z91.81 History of falling
CPT/HCPCS: 36415; 72128-TC; 72131-TC; 72141-TC; 72146-TC; 72148-TC; 80048; 80053; 81003; 85025; 85610; 85730; 87086; 87186; 96374; 97116-GP; 97161-GP; 99285-25; C9803-CS; G0378; U0003; U0005

== ENCOUNTER 2022-09-12 18:30 | Inpatient (IN) | payer OTHER ==
[2022-09-12 19:00] VITALS: BMI 20.9
[2022-09-12] MEDS ORDERED: SODIUM CHLORIDE 500 ML IV STA (20:45)
[2022-09-12 21:34] LABS: HEMATOCRIT 44.7 % (32.4-45.2); MCH 31.3 pg (25.7-33.7); MCHC 33.6 g/dl (32.0-36.0); MEAN CELL VOLUME 93.3 fl (80-96); MEAN PLT VOLUME 8.5 fl (7.5-11.1); PLATELET COUNT 359 10^3/uL (134-434); RBC 4.79 M/mm3 (3.60-5.2); RDW 14.3 % (11.6-15.6); WHITE BLOOD COUNT 25.2 K/mm3 (4.0-10.0)
[2022-09-12 21:44] LABS: INR 1.17 (0.83-1.09); PROTHROMBIN TIME (PATIENT) 13.5 SEC (9.7-13.0)
[2022-09-12 22:02] LABS: CHLORIDE 103 mmol/L (98-107); SODIUM 139 mmol/L (136-145)
[2022-09-12 22:04] LABS: ALBUMIN 3.9 g/dl (3.4-5.0); ANION GAP 10 MMOL/L (8-16); CALCIUM 9.6 mg/dL (8.5-10.1); CO2 26 mmol/L (21-32)
[2022-09-12 22:05] LABS: BLOOD UREA NITROGEN 22.4 mg/dL (7-18); GLUCOSE,RANDOM 166 mg/dL (74-106)
[2022-09-12 22:08] LABS: CREATININE 0.8 mg/dL (0.55-1.3); SGOT/AST 37 U/L (15-37)
[2022-09-12 22:09] LABS: TOT PROT 6.9 g/dl (6.4-8.2)
[2022-09-12 22:10] LABS: ALK PHOS 122 U/L (45-117)
[2022-09-12 22:11] LABS: BILIRUBIN,TOTAL 0.7 mg/dL (0.2-1); SGPT/ALT 49 U/L (13-61)
[2022-09-12] MEDS ORDERED: ASPIRIN 325 MG TABLET PO ONE (22:40)
[2022-09-12 23:05] LABS: ANISOCYTOSIS 0; MACROCYTOSIS 0
[2022-09-12] MEDS ORDERED: ASPIRIN 325 MG TABLET ONE (23:05)
[2022-09-13] MEDS ORDERED: ACETAMINOPHEN 1000 MG/100 ML BAG IVPB ONE (00:01)
[2022-09-13] MEDS ORDERED: morphine SULFATE 4 MG/ML VIAL IVPUSH ONE (00:01)
[2022-09-13] MEDS ORDERED: HALOPERIDOL LACTATE 5 MG/ML IM ONE ×2 (01:47→02:06)
[2022-09-13] MEDS ORDERED: HALOPERIDOL DECANOATE 500 MG/5ML MDV IM ONE (01:49)
[2022-09-13] MEDS ORDERED: SODIUM CHLORIDE 1,000 ML IV STA (01:49)
[2022-09-13] MEDS ORDERED: ACETAMINOPHEN INJECTION 100 ML IVPB ONE (02:06)
[2022-09-13 02:20] LABS: EPI CELLS 28 /uL (0-25.1); HYALINE CASTS 11 /uL (0-3.1); URINE APPEARANCE CLEAR; URINE BACTERIA 12 /uL (0-1359); URINE BILIRUBIN NEGATIVE (NEGATIVE); URINE COLOR YELLOW; URINE GLUCOSE (UA) NEGATIVE (NEGATIVE); URINE KETONE 1+ (NEGATIVE); URINE LEUK ESTERASE NEGATIVE (NEGATIVE); URINE NITRITE NEGATIVE (NEGATIVE); URINE PROTEIN 1+ (NEGATIVE); URINE RBC 43 /uL (0-23.9); URINE UROBILINOGEN 0.2 mg/dL (0.2-1.0); URINE WBC 54 /uL (0-25.8)
[2022-09-13 09:14] LABS: HEMATOCRIT 40.4 % (32.4-45.2); HEMOGLOBIN 13.3 GM/dL (10.7-15.3); MCH 30.8 pg (25.7-33.7); MCHC 32.9 g/dl (32.0-36.0); MEAN CELL VOLUME 93.7 fl (80-96); MEAN PLT VOLUME 9.4 fl (7.5-11.1); PLATELET COUNT 284 10^3/uL (134-434); RBC 4.31 M/mm3 (3.60-5.2); RDW 14.2 % (11.6-15.6); WHITE BLOOD COUNT 21.9 K/mm3 (4.0-10.0)
[2022-09-13] MEDS ORDERED: ASPIRIN 81 MG CHEWABLE TABLETS ONE (09:23)
[2022-09-13 09:38] LABS: CHLORIDE 106 mmol/L (98-107); SODIUM 140 mmol/L (136-145)
[2022-09-13 09:53] LABS: BLOOD UREA NITROGEN 20.9 mg/dL (7-18)
[2022-09-13 09:54] LABS: CALCIUM 8.7 mg/dL (8.5-10.1)
[2022-09-13 09:55] LABS: ANION GAP 13 MMOL/L (8-16); CO2 20 mmol/L (21-32); GLUCOSE,RANDOM 159 mg/dL (74-106); MAGNESIUM 2.2 mg/dL (1.8-2.4)
[2022-09-13 09:56] LABS: ALBUMIN 3.4 g/dl (3.4-5.0)
[2022-09-13 09:58] LABS: CREATININE 0.6 mg/dL (0.55-1.3); SGOT/AST 35 U/L (15-37); TOT PROT 6.2 g/dl (6.4-8.2); TRIGLYCERIDES 52 mg/dL (0-150)
[2022-09-13 09:59] LABS: ANISOCYTOSIS 0; BILIRUBIN,TOTAL 0.6 mg/dL (0.2-1); LDL CHOLESTEROL (ONLY SJRH) 65 mg/dL (5-100); MACROCYTOSIS 0; SGPT/ALT 45 U/L (13-61)
[2022-09-13 10:00] LABS: CHOLESTEROL 152 mg/dL (50-200); HDL CHOLESTEROL 87 mg/dL (40-60)
[2022-09-13] MEDS ORDERED: METOPROLOL TARTRATE 50 MG TABLET (FP) PO SCH (10:00)
[2022-09-13] MEDS ORDERED: ASPIRIN 81 MG CHEWABLE TABLETS PO SCH (10:00)
[2022-09-13] MEDS ORDERED: ENOXAPARIN NA (PORCINE) 40 MG/0.4 ML DISP.SYRIN SQ SCH (10:00)
[2022-09-13 10:03] LABS: ALK PHOS 97 U/L (45-117)
[2022-09-13] MEDS ORDERED: ENOXAPARIN NA (PORCINE) 40 MG/0.4 ML DISP.SYRIN SQ ONE (10:59)
[2022-09-13] MEDS ORDERED: ACETAMINOPHEN 650 MG SUPP.RECT ONE (16:54)
[2022-09-13] MEDS ORDERED: ACETAMINOPHEN 650 MG SUPP.RECT PR ONE (16:57)
[2022-09-13 17:12] VITALS: BP 120/91; PULSE 102; RESP 31; TEMP 102.2
== END 2022-09-13 17:12 | disposition short-term general hospital (02) | DRG 280 ==
LOC: JER 18:30 → JERBED 09-13 03:22
PROVIDERS: ADMIT Internal Medicine; ATTEND Family Medicine
DX: I21.4 Non-ST elevation (NSTEMI) myocardial infarction (principal); S72.001A Fracture of unspecified part of neck of right femur, initial encounter for closed fracture; I10 Essential (primary) hypertension; I48.91 Unspecified atrial fibrillation; K21.9 Gastro-esophageal reflux disease without esophagitis; G30.9 Alzheimer's disease, unspecified; F02.80 Dementia in other diseases classified elsewhere, unspecified severity, without behavioral disturbance, psychotic disturbance, mood disturbance, and anxiety; I45.10 Unspecified right bundle-branch block; E78.5 Hyperlipidemia, unspecified; D72.829 Elevated white blood cell count, unspecified; W18.39XA Other fall on same level, initial encounter; Y92.098 Other place in other non-institutional residence as the place of occurrence of the external cause
CPT/HCPCS: 0241U-QW; 36415; 70450-TC; 70486-TC; 71045-TC-FY; 71275-TC; 72125-TC; 72170-TC-FY; 73521-TC-FY; 73564-TC-RT-FY; 80053; 80061; 81003; 83735; 84443; 84484; 85025; 85610; 85730; 87086; 93005; 93010; 93306-TC; 99285-25

== ENCOUNTER 2022-12-15 05:31 | Inpatient (IN) | payer OTHER ==
[2022-12-15] MEDS ORDERED: SODIUM CHLORIDE 0.9% 500 ML INFUS.BAG IV ONE (05:39)
[2022-12-15] MEDS ORDERED: ACETAMINOPHEN 1000 MG/100 ML BAG IVPB ONE (05:44)
[2022-12-15] MEDS ORDERED: PIPERACILLIN/TAZOB 4.5 GM 4.5 GM in DEXTROSE 5%-WATER 100 ML IVPB ONE (05:44)
[2022-12-15] MEDS ORDERED: VANCOMYCIN 1 GM in D5W (PRE-DOCKED) 1,000 MG/250 ML IVPB ONE (05:45)
[2022-12-15 05:51] VITALS: BMI 19.7
[2022-12-15] MEDS ORDERED: ACETAMINOPHEN INJECTION 100 ML IVPB ONE (06:01)
[2022-12-15] MEDS ORDERED: PIPERACILLIN/TAZOB 4.5 GM 4.5 GM/100 ML BAG IVPB ONE (06:01)
[2022-12-15 06:25] LABS: BASO % 0.2 % (0-2.0); EOS % 0.3 % (0-4.5); HEMATOCRIT 28.9 % (32.4-45.2); HEMOGLOBIN 9.4 GM/dL (10.7-15.3); LYMPH % 2.9 % (8-40); MCH 26.8 pg (25.7-33.7); MCHC 32.7 g/dl (32.0-36.0); MEAN CELL VOLUME 81.9 fl (80-96); MEAN PLT VOLUME 8.1 fl (7.5-11.1); MONO % 3.3 % (3.8-10.2); NEUT % 93.3 % (42.8-82.8); PLATELET COUNT 627 10^3/uL (134-434); RBC 3.52 M/mm3 (3.60-5.2); RDW 18.7 % (11.6-15.6); WHITE BLOOD COUNT 16.4 K/mm3 (4.0-10.0)
[2022-12-15 06:32] LABS: INR 1.43 (0.83-1.09); PROTHROMBIN TIME (PATIENT) 16.5 SEC (9.7-13.0)
[2022-12-15 06:35] LABS: ACTIVATED PTT 28.8 SECONDS (25.2-36.5)
[2022-12-15 06:46] LABS: CHLORIDE 96 mmol/L (98-107); SODIUM 131 mmol/L (136-145)
[2022-12-15 06:48] LABS: ALBUMIN 2.1 g/dl (3.4-5.0); ANION GAP 7 MMOL/L (8-16); BLOOD UREA NITROGEN 11.9 mg/dL (7-18); CALCIUM 8.4 mg/dL (8.5-10.1); CO2 29 mmol/L (21-32); GLUCOSE,RANDOM 178 mg/dL (74-106)
[2022-12-15 06:51] LABS: SGOT/AST 38 U/L (15-37); SGPT/ALT 75 U/L (13-61)
[2022-12-15 06:52] LABS: CREATININE 0.2 mg/dL (0.55-1.3)
[2022-12-15 06:53] LABS: BILIRUBIN,TOTAL 0.4 mg/dL (0.2-1)
[2022-12-15 06:54] LABS: ALK PHOS 140 U/L (45-117)
[2022-12-15] MEDS ORDERED: VANCOMYCIN/WATER FOR INJ (PEG) 1,000 MG/200 ML BAG IVPB ONE (08:06)
[2022-12-15 08:36] LABS: VENOUS BASE EXCESS 4.2 mmol/L (-2-2); VENOUS PH 7.411 (7.310-7.410)
[2022-12-15 09:59] LABS: ANISOCYTOSIS 2+; MACROCYTOSIS 2+
[2022-12-15 12:19] LABS: EPI CELLS 8 /uL (0-25.1); HYALINE CASTS 2 /uL (0-3.1); URINE APPEARANCE CLEAR; URINE BACTERIA 3 /uL (0-1359); URINE BILIRUBIN NEGATIVE (NEGATIVE); URINE COLOR YELLOW; URINE GLUCOSE (UA) NEGATIVE (NEGATIVE); URINE KETONE TRACE (NEGATIVE); URINE LEUK ESTERASE NEGATIVE (NEGATIVE); URINE NITRITE NEGATIVE (NEGATIVE); URINE PROTEIN 1+ (NEGATIVE); URINE RBC 38 /uL (0-23.9); URINE UROBILINOGEN 0.2 mg/dL (0.2-1.0); URINE WBC 11 /uL (0-25.8)
[2022-12-15] MEDS ORDERED: PIPERACILLIN/TAZOB 3.375 GM 3.375 GM in DEXTROSE 5%-WATER - 50 ML IVPB ONE (13:00)
[2022-12-15] MEDS ORDERED: ENOXAPARIN NA (PORCINE) 60 MG/0.6 ML DISP.SYRIN SQ ONE (13:27)
[2022-12-15] MEDS ORDERED: dilTIAZem HCL 30 MG TABLET ONE ×2 (13:27→23:28)
[2022-12-15] MEDS ORDERED: PIPERACILLIN/TAZOB 3.375 GM 3.375 GM/50 ML BAG IVPB ONE (13:28)
[2022-12-15 13:56] LABS: IRON SERUM 9 ug/dL (50-175)
[2022-12-15] MEDS: dilTIAZem HCL 30 MG TABLET PO SCH ×2 (14:22→23:45)
[2022-12-15] MEDS: ENOXAPARIN NA (PORCINE) 60 MG/0.6 ML DISP.SYRIN SQ SCH (14:22)
[2022-12-15] MEDS: D5-1/2NS+20 MEQ KCL - 20 MEQ/1,000 ML INFUS.BAG IV SCH (14:29)
[2022-12-15] MEDS ORDERED: ATORVASTATIN CA 10 MG TABLET (FP) ONE (23:28)
[2022-12-15] MEDS: ATORVASTATIN CA 10 MG TABLET (FP) PO SCH (23:45)
[2022-12-16] MEDS: MIRTAZAPINE 15 MG TABLET (FP) PO SCH ×2 (00:12→22:07)
[2022-12-16] MEDS: POLYETHYLENE GLYCOL 3350 119 GM BTL PO SCH ×2 (02:13→22:08)
[2022-12-16] MEDS: PIPERACILLIN/TAZOB 3.375 GM 3.375 GM in DEXTROSE 5%-WATER - 50 ML IVPB SCH ×3 (02:15→18:12)
[2022-12-16] MEDS: ENOXAPARIN NA (PORCINE) 60 MG/0.6 ML DISP.SYRIN SQ SCH ×2 (02:16→13:16)
[2022-12-16] MEDS: dilTIAZem HCL 30 MG TABLET PO SCH ×4 (06:30→22:07)
[2022-12-16 09:15] LABS: BASO % 1.4 % (0-2.0); EOS % 4.2 % (0-4.5); HEMATOCRIT 23.1 % (32.4-45.2); HEMOGLOBIN 7.8 GM/dL (10.7-15.3); LYMPH % 16.4 % (8-40); MCH 27.3 pg (25.7-33.7); MCHC 33.9 g/dl (32.0-36.0); MEAN CELL VOLUME 80.8 fl (80-96); MEAN PLT VOLUME 6.6 fl (7.5-11.1); MONO % 9.3 % (3.8-10.2); NEUT % 68.7 % (42.8-82.8); PLATELET COUNT 618 10^3/uL (134-434); RBC 2.86 M/mm3 (3.60-5.2); WHITE BLOOD COUNT 7.6 K/mm3 (4.0-10.0)
[2022-12-16 09:59] LABS: ALBUMIN 1.7 g/dl (3.4-5.0); BLOOD UREA NITROGEN 8.7 mg/dL (7-18); CALCIUM 7.9 mg/dL (8.5-10.1); MAGNESIUM 1.9 mg/dL (1.8-2.4)
[2022-12-16 10:00] LABS: CREATININE 0.2 mg/dL (0.55-1.3)
[2022-12-16 10:01] LABS: TOT PROT 4.9 g/dl (6.4-8.2)
[2022-12-16 10:19] LABS: BILIRUBIN,TOTAL 0.5 mg/dL (0.2-1)
[2022-12-16] MEDS: IRON SUCROSE INJECTION 200 MG in SODIUM CHLORIDE 90 ML IVPB ONE ×2 (15:06→15:40)
[2022-12-16] MEDS: D5-1/2NS+20 MEQ KCL - 20 MEQ/1,000 ML INFUS.BAG IV SCH (18:10)
[2022-12-16] MEDS: ATORVASTATIN CA 10 MG TABLET (FP) PO SCH (22:07)
[2022-12-16] MEDS: PANTOPRAZOLE SODIUM 40 MG VIAL IVPUSH SCH (22:08)
[2022-12-16] MEDS ORDERED: ACETAMINOPHEN 1000 MG/100 ML BAG IVPB ONE (22:17)
[2022-12-17] MEDS: ENOXAPARIN NA (PORCINE) 60 MG/0.6 ML DISP.SYRIN SQ SCH ×2 (01:02→11:58)
[2022-12-17] MEDS: PIPERACILLIN/TAZOB 3.375 GM 3.375 GM in DEXTROSE 5%-WATER - 50 ML IVPB SCH ×4 (02:55→17:30)
[2022-12-17] MEDS: dilTIAZem HCL 30 MG TABLET PO SCH ×3 (06:10→22:11)
[2022-12-17 10:19] LABS: HEMATOCRIT 28.7 % (32.4-45.2); HEMOGLOBIN 9.9 GM/dL (10.7-15.3); MCH 28.1 pg (25.7-33.7); MCHC 34.6 g/dl (32.0-36.0); MEAN CELL VOLUME 81.4 fl (80-96); MEAN PLT VOLUME 7.2 fl (7.5-11.1); PLATELET COUNT 582 10^3/uL (134-434); RBC 3.53 M/mm3 (3.60-5.2); RDW 18.7 % (11.6-15.6); WHITE BLOOD COUNT 7.3 K/mm3 (4.0-10.0)
[2022-12-17 10:39] LABS: CHLORIDE 105 mmol/L (98-107); SODIUM 134 mmol/L (136-145)
[2022-12-17 10:43] LABS: CALCIUM 8.1 mg/dL (8.5-10.1)
[2022-12-17 10:44] LABS: ALBUMIN 1.8 g/dl (3.4-5.0); ANION GAP 5 MMOL/L (8-16); BLOOD UREA NITROGEN 6.7 mg/dL (7-18); CO2 24 mmol/L (21-32); GLUCOSE,RANDOM 127 mg/dL (74-106)
[2022-12-17 10:47] LABS: CREATININE < 0.2 mg/dL (0.55-1.3); SGOT/AST 20 U/L (15-37); SGPT/ALT 38 U/L (13-61)
[2022-12-17 10:48] LABS: BILIRUBIN,TOTAL 0.7 mg/dL (0.2-1)
[2022-12-17 10:49] LABS: TOT PROT 5.1 g/dl (6.4-8.2)
[2022-12-17 10:50] LABS: ALK PHOS 103 U/L (45-117)
[2022-12-17] MEDS: COLLAGENASE CLOSTRIDIUM HIST. 30 GRAMS TUBE TP SCH (10:56)
[2022-12-17] MEDS: BACITRACIN ZINC 15 GM TUBE TOPICAL OINTMENT TP SCH (10:56)
[2022-12-17] MEDS: PANTOPRAZOLE SODIUM 40 MG VIAL IVPUSH SCH ×2 (10:56→22:12)
[2022-12-17] MEDS: D5-1/2NS+20 MEQ KCL - 20 MEQ/1,000 ML INFUS.BAG IV SCH (15:22)
[2022-12-17] MEDS: AMINO ACIDS/PROTEIN HYDROLYS 30 ML LIQUID.PKT PO SCH (17:30)
[2022-12-17] MEDS: MIRTAZAPINE 15 MG TABLET (FP) PO SCH (22:11)
[2022-12-17] MEDS: ATORVASTATIN CA 10 MG TABLET (FP) PO SCH (22:11)
[2022-12-17] MEDS: POLYETHYLENE GLYCOL 3350 119 GM BTL PO SCH (22:16)
[2022-12-18] MEDS: ENOXAPARIN NA (PORCINE) 60 MG/0.6 ML DISP.SYRIN SQ SCH ×2 (00:52→14:22)
[2022-12-18] MEDS: PIPERACILLIN/TAZOB 3.375 GM 3.375 GM in DEXTROSE 5%-WATER - 50 ML IVPB SCH ×3 (01:03→17:49)
[2022-12-18] MEDS: dilTIAZem HCL 30 MG TABLET PO SCH ×3 (05:51→21:13)
[2022-12-18] MEDS: D5-1/2NS+20 MEQ KCL - 20 MEQ/1,000 ML INFUS.BAG IV SCH ×2 (06:39→17:49)
[2022-12-18 08:43] LABS: HEMOGLOBIN 9.5 GM/dL (10.7-15.3); MCH 26.8 pg (25.7-33.7); MCHC 32.7 g/dl (32.0-36.0); MEAN CELL VOLUME 81.8 fl (80-96); MEAN PLT VOLUME 6.8 fl (7.5-11.1); PLATELET COUNT 574 10^3/uL (134-434); RBC 3.55 M/mm3 (3.60-5.2); RDW 18.4 % (11.6-15.6); WHITE BLOOD COUNT 5.4 K/mm3 (4.0-10.0)
[2022-12-18] MEDS: AMINO ACIDS/PROTEIN HYDROLYS 30 ML LIQUID.PKT PO SCH ×3 (09:21→17:48)
[2022-12-18] MEDS: ASCORBIC ACID 250 MG TABLET (FP) PO SCH (09:21)
[2022-12-18] MEDS: PANTOPRAZOLE SODIUM 40 MG VIAL IVPUSH SCH ×2 (09:21→21:14)
[2022-12-18] MEDS: COLLAGENASE CLOSTRIDIUM HIST. 30 GRAMS TUBE TP SCH (09:22)
[2022-12-18] MEDS: BACITRACIN ZINC 15 GM TUBE TOPICAL OINTMENT TP SCH (09:22)
[2022-12-18] MEDS: MIRTAZAPINE 15 MG TABLET (FP) PO SCH (21:13)
[2022-12-18] MEDS: ATORVASTATIN CA 10 MG TABLET (FP) PO SCH (21:13)
[2022-12-18] MEDS: POLYETHYLENE GLYCOL (HEALTHYLAX) 3350 17 GM PACKET PO SCH (21:14)
[2022-12-19] MEDS: ENOXAPARIN NA (PORCINE) 60 MG/0.6 ML DISP.SYRIN SQ SCH ×2 (00:54→13:00)
[2022-12-19] MEDS: PIPERACILLIN/TAZOB 3.375 GM 3.375 GM in DEXTROSE 5%-WATER - 50 ML IVPB SCH ×3 (01:48→17:26)
[2022-12-19] MEDS: dilTIAZem HCL 30 MG TABLET PO SCH ×3 (06:38→21:10)
[2022-12-19] MEDS: D5-1/2NS+20 MEQ KCL - 20 MEQ/1,000 ML INFUS.BAG IV SCH ×3 (06:46→23:58)
[2022-12-19] MEDS: PANTOPRAZOLE SODIUM 40 MG VIAL IVPUSH SCH ×2 (09:56→21:11)
[2022-12-19] MEDS: ASCORBIC ACID 250 MG TABLET (FP) PO SCH (09:56)
[2022-12-19] MEDS: AMINO ACIDS/PROTEIN HYDROLYS 30 ML LIQUID.PKT PO SCH ×3 (09:56→17:26)
[2022-12-19] MEDS: COLLAGENASE CLOSTRIDIUM HIST. 30 GRAMS TUBE TP SCH (10:02)
[2022-12-19] MEDS: BACITRACIN ZINC 15 GM TUBE TOPICAL OINTMENT TP SCH (10:04)
[2022-12-19 10:17] LABS: HEMATOCRIT 28.5 % (32.4-45.2); HEMOGLOBIN 9.6 GM/dL (10.7-15.3); MCH 27.4 pg (25.7-33.7); MCHC 33.5 g/dl (32.0-36.0); MEAN CELL VOLUME 81.7 fl (80-96); MEAN PLT VOLUME 7.2 fl (7.5-11.1); PLATELET COUNT 607 10^3/uL (134-434); RBC 3.49 M/mm3 (3.60-5.2); RDW 18.1 % (11.6-15.6); WHITE BLOOD COUNT 8.1 K/mm3 (4.0-10.0)
[2022-12-19 10:30] LABS: CHLORIDE 102 mmol/L (98-107); SODIUM 134 mmol/L (136-145)
[2022-12-19 10:37] LABS: ALBUMIN 1.8 g/dl (3.4-5.0); ANION GAP 7 MMOL/L (8-16); CALCIUM 7.7 mg/dL (8.5-10.1); CO2 24 mmol/L (21-32); GLUCOSE,RANDOM 142 mg/dL (74-106)
[2022-12-19 10:38] LABS: BLOOD UREA NITROGEN 8.6 mg/dL (7-18)
[2022-12-19 10:39] LABS: SGPT/ALT 34 U/L (13-61)
[2022-12-19 10:40] LABS: CREATININE < 0.2 mg/dL (0.55-1.3)
[2022-12-19 10:41] LABS: SGOT/AST 18 U/L (15-37)
[2022-12-19 10:42] LABS: ALK PHOS 107 U/L (45-117); BILIRUBIN,TOTAL 0.4 mg/dL (0.2-1); TOT PROT 4.8 g/dl (6.4-8.2)
[2022-12-19] MEDS ORDERED: ENOXAPARIN NA (PORCINE) 60 MG/0.6 ML DISP.SYRIN SQ SCH (19:00)
[2022-12-19] MEDS: ATORVASTATIN CA 10 MG TABLET (FP) PO SCH (21:10)
[2022-12-19] MEDS: POLYETHYLENE GLYCOL (HEALTHYLAX) 3350 17 GM PACKET PO SCH (21:10)
[2022-12-19] MEDS: MIRTAZAPINE 15 MG TABLET (FP) PO SCH (21:11)
[2022-12-20] MEDS: ENOXAPARIN NA (PORCINE) 60 MG/0.6 ML DISP.SYRIN SQ SCH ×2 (00:33→12:51)
[2022-12-20] MEDS: PIPERACILLIN/TAZOB 3.375 GM 3.375 GM in DEXTROSE 5%-WATER - 50 ML IVPB SCH ×2 (01:54→10:54)
[2022-12-20] MEDS: dilTIAZem HCL 30 MG TABLET PO SCH ×2 (06:59→14:51)
[2022-12-20 08:43] LABS: HEMATOCRIT 28.7 % (32.4-45.2); HEMOGLOBIN 9.4 GM/dL (10.7-15.3); MCH 27.4 pg (25.7-33.7); MCHC 32.9 g/dl (32.0-36.0); MEAN CELL VOLUME 83.3 fl (80-96); MEAN PLT VOLUME 6.7 fl (7.5-11.1); PLATELET COUNT 600 10^3/uL (134-434); RBC 3.45 M/mm3 (3.60-5.2); RDW 18.4 % (11.6-15.6)
[2022-12-20] MEDS: ASCORBIC ACID 250 MG TABLET (FP) PO SCH (10:54)
[2022-12-20] MEDS: PANTOPRAZOLE SODIUM 40 MG VIAL IVPUSH SCH (10:54)
[2022-12-20] MEDS: AMINO ACIDS/PROTEIN HYDROLYS 30 ML LIQUID.PKT PO SCH ×3 (10:54→17:01)
[2022-12-20] MEDS: BACITRACIN ZINC 15 GM TUBE TOPICAL OINTMENT TP SCH (10:55)
[2022-12-20] MEDS: COLLAGENASE CLOSTRIDIUM HIST. 30 GRAMS TUBE TP SCH (10:55)
[2022-12-20] MEDS: AMOX TR/POTASSIUM CLAVULANATE 250 MG/5 ML BOTTLE GT SCH ×2 (12:49→17:00)
[2022-12-20] MEDS: D5-1/2NS+20 MEQ KCL - 20 MEQ/1,000 ML INFUS.BAG IV SCH (12:52)
[2022-12-20 18:10] VITALS: BP 135/74; PULSE 92; RESP 16; TEMP 98.2
== END 2022-12-20 18:49 | DRG 207 ==
LOC: JER 05:31 → JERBED 10:53 → J5S 12:02 → JERBED 12:02 → J5S 12-16 00:55
PROVIDERS: ADMIT Family Medicine; ATTEND Family Medicine
PROC: 5A1955Z Respiratory Ventilation, Greater than 96 Consecutive Hours (ICD-10-PCS; principal; 2022-12-15)
PROC: 30233N1 Transfusion of Nonautologous Red Blood Cells into Peripheral Vein, Percutaneous Approach (ICD-10-PCS; 2022-12-17)
DX: J69.0 Pneumonitis due to inhalation of food and vomit (principal); J96.10 Chronic respiratory failure, unspecified whether with hypoxia or hypercapnia; R64 Cachexia; Z68.1 Body mass index [BMI] 19.9 or less, adult; G30.9 Alzheimer's disease, unspecified; D64.9 Anemia, unspecified; E78.5 Hyperlipidemia, unspecified; I10 Essential (primary) hypertension; D72.829 Elevated white blood cell count, unspecified; Z93.0 Tracheostomy status; Z79.01 Long term (current) use of anticoagulants; F02.80 Dementia in other diseases classified elsewhere, unspecified severity, without behavioral disturbance, psychotic disturbance, mood disturbance, and anxiety; K21.9 Gastro-esophageal reflux disease without esophagitis
CPT/HCPCS: 0241U-QW; 36415; 36430; 71045-TC-FY; 71250-TC; 80053; 81003; 82550; 82553; 82728; 82803; 82962; 83540; 83605; 83735; 84443; 84484; 85025; 85027; 85610; 85730; 86850; 86900; 86901; 86922; 87040; 87086; 93005; 93010; 94002; 99285-25; C9803-CS; J1756; P9058; U0003; U0005

== ENCOUNTER 2022-12-26 03:03 | Inpatient (IN) | payer OTHER ==
[2022-12-26] MEDS ORDERED: SODIUM CHLORIDE 0.9% 500 ML INFUS.BAG IV ONE (03:24)
[2022-12-26] MEDS ORDERED: ACETAMINOPHEN INJECTION 100 ML IVPB ONE (03:41)
[2022-12-26 03:43] LABS: ARTERIAL BLD GAS O2 SATURATION 99.4 % (95-98); ARTERIAL BLOOD GAS BASE EXCESS 2.4 mmol/L (-2-2); ARTERIAL BLOOD GAS pH 7.516 (7.350-7.450)
[2022-12-26] MEDS ORDERED: ACETAMINOPHEN 1000 MG/100 ML BAG IVPB ONE (03:43)
[2022-12-26 04:03] LABS: BASO % 0.4 % (0-2.0); EOS % 0.1 % (0-4.5); HEMATOCRIT 17.8 % (32.4-45.2); LYMPH % 3.4 % (8-40); MCH 28.1 pg (25.7-33.7); MCHC 32.3 g/dl (32.0-36.0); MEAN CELL VOLUME 86.9 fl (80-96); MEAN PLT VOLUME 7.1 fl (7.5-11.1); MONO % 7.1 % (3.8-10.2); PLATELET COUNT 356 10^3/uL (134-434); RBC 2.05 M/mm3 (3.60-5.2); RDW 19.4 % (11.6-15.6); WHITE BLOOD COUNT 8.3 K/mm3 (4.0-10.0)
[2022-12-26 04:04] LABS: INR 2.16 (0.83-1.09); PROTHROMBIN TIME (PATIENT) 24.9 SEC (9.7-13.0)
[2022-12-26 04:05] LABS: HEMOGLOBIN 5.7 GM/dL (10.7-15.3)
[2022-12-26 04:06] LABS: ACTIVATED PTT 39.9 SECONDS (25.2-36.5)
[2022-12-26 04:20] LABS: CHLORIDE 119 mmol/L (98-107); POTASSIUM 3.2 mmol/L (3.5-5.1); SODIUM 144 mmol/L (136-145)
[2022-12-26 04:22] LABS: ANION GAP 6 MMOL/L (8-16); BLOOD UREA NITROGEN 11.5 mg/dL (7-18); CO2 19 mmol/L (21-32); GLUCOSE,RANDOM 148 mg/dL (74-106); MAGNESIUM 1.2 mg/dL (1.8-2.4)
[2022-12-26 04:25] LABS: CREATININE 0.2 mg/dL (0.55-1.3); PHOSPHOROUS 2.6 mg/dL (2.5-4.9); SGOT/AST 21 U/L (15-37); SGPT/ALT 27 U/L (13-61)
[2022-12-26 04:27] LABS: BILIRUBIN,TOTAL 0.2 mg/dL (0.2-1); TOT PROT 3.4 g/dl (6.4-8.2)
[2022-12-26 04:28] LABS: EPI CELLS >36 /uL (0-25.1); HYALINE CASTS 513 /uL (0-3.1); PH,URINE 6.5 (5.0-8.0); URINE APPEARANCE TURBID; URINE BILIRUBIN NEGATIVE (NEGATIVE); URINE COLOR DK YELLOW; URINE GLUCOSE (UA) NEGATIVE (NEGATIVE); URINE KETONE NEGATIVE (NEGATIVE); URINE LEUK ESTERASE 2+ (NEGATIVE); URINE NITRITE NEGATIVE (NEGATIVE); URINE PROTEIN 1+ (NEGATIVE); URINE WBC 229 /uL (0-25.8)
[2022-12-26] MEDS ORDERED: MAGNESIUM SULF 50% (8.12 MEQ/2 ML-1 GM VIAL) IVPB ONE (04:39)
[2022-12-26] MEDS ORDERED: POTASSIUM CHLORIDE ORAL LIQUID 20 MEQ/15 ML PO ONE (04:42)
[2022-12-26] MEDS ORDERED: MAGNESIUM 1GM/D5W - 1 GM/100 ML IVPB IVPB ONE (04:45)
[2022-12-26] MEDS ORDERED: POTASSIUM CHLORIDE ORAL LIQUID 20 MEQ/15 ML ONE (04:45)
[2022-12-26 04:54] LABS: ALBUMIN 1.2 g/dl (3.4-5.0); ALK PHOS 67 U/L (45-117); CALCIUM 5.2 mg/dL (8.5-10.1); LACTIC ACID 2.6 mmol/L (0.4-2.0)
[2022-12-26] MEDS: KCL 10 MEQ IVPB 10 MEQ/100 ML INFUS.BAG IVPB SCH ×3 (05:47→08:10)
[2022-12-26] MEDS ORDERED: KCL 10 MEQ IVPB 10 MEQ/100 ML INFUS.BAG IVPB ONE ×2 (06:45→07:45)
[2022-12-26] MEDS ORDERED: dilTIAZem HCL 30 MG TABLET ONE ×2 (08:03→12:23)
[2022-12-26 08:05] LABS: EPI CELLS >36 /uL (0-25.1); HYALINE CASTS 39 /uL (0-3.1); URINE APPEARANCE TURBID; URINE BACTERIA 39 /uL (0-1359); URINE BILIRUBIN NEGATIVE (NEGATIVE); URINE COLOR YELLOW; URINE GLUCOSE (UA) NEGATIVE (NEGATIVE); URINE KETONE NEGATIVE (NEGATIVE); URINE LEUK ESTERASE TRACE (NEGATIVE); URINE NITRITE NEGATIVE (NEGATIVE); URINE PROTEIN TRACE (NEGATIVE); URINE WBC 416 /uL (0-25.8)
[2022-12-26] MEDS: dilTIAZem HCL 30 MG TABLET GT SCH ×3 (08:10→22:12)
[2022-12-26 08:30] LABS: URINE BACTERIA 13.9 /uL (0-1359); URINE CRYSTALS PRESENT /hpf; URINE RBC 624.9 /uL (0-23.9)
[2022-12-26 08:31] LABS: YEAST PRESENT (NEGATIVE)
[2022-12-26 08:44] LABS: URINE CRYSTALS PRESENT /hpf; URINE RBC 1244 /uL (0-23.9)
[2022-12-26 08:46] LABS: YEAST PRESENT (NEGATIVE)
[2022-12-26] MEDS ORDERED: METOPROLOL TARTRATE 25 MG TABLET (FP) ONE (08:50)
[2022-12-26] MEDS: METOPROLOL TARTRATE 25 MG TABLET (FP) GT SCH ×2 (09:25→22:13)
[2022-12-26] MEDS ORDERED: PANTOPRAZOLE SODIUM 40 MG VIAL ONE ×2 (09:25→19:05)
[2022-12-26] MEDS ORDERED: PANTOPRAZOLE SODIUM 40 MG VIAL IVPUSH SCH (10:00)
[2022-12-26] MEDS: ASCORBIC ACID 500 MG/5 ML UNIT DOSE CUP GT SCH (10:10)
[2022-12-26 10:30] VITALS: BMI 19.7
[2022-12-26 10:54] LABS: BASO % 0.7 % (0-2.0); EOS % 0.4 % (0-4.5); HEMATOCRIT 29.3 % (32.4-45.2); HEMOGLOBIN 9.8 GM/dL (10.7-15.3); MCHC 33.3 g/dl (32.0-36.0); MEAN PLT VOLUME 7.5 fl (7.5-11.1); MONO % 7.1 % (3.8-10.2); NEUT % 86.8 % (42.8-82.8); PLATELET COUNT 495 10^3/uL (134-434); RBC 3.63 M/mm3 (3.60-5.2); RDW 21.3 % (11.6-15.6); WHITE BLOOD COUNT 13.2 K/mm3 (4.0-10.0)
[2022-12-26 11:12] LABS: MEAN CELL VOLUME 80.9 fl (80-96)
[2022-12-26 11:48] LABS: ANISOCYTOSIS 3+; MACROCYTOSIS 0
[2022-12-26] MEDS: ACETAMINOPHEN 325 MG TABLET (FP) PO PRN ×2 (13:58→22:17)
[2022-12-26] MEDS: PANTOPRAZOLE SODIUM 40 MG VIAL IVPUSH SCH (19:03)
[2022-12-26] MEDS: POLYETHYLENE GLYCOL (HEALTHYLAX) 3350 17 GM PACKET GT SCH (22:13)
[2022-12-26] MEDS: ATORVASTATIN CA 10 MG TABLET (FP) GT SCH (22:13)
[2022-12-26] MEDS: MELATONIN 5 MG TABLETS NR SCH (22:15)
[2022-12-26] MEDS: MIRTAZAPINE 15 MG TABLET (FP) GT SCH (22:16)
[2022-12-27] MEDS: PANTOPRAZOLE SODIUM 40 MG VIAL IVPUSH SCH ×3 (01:41→17:07)
[2022-12-27] MEDS: dilTIAZem HCL 30 MG TABLET GT SCH ×3 (05:05→21:41)
[2022-12-27 08:13] LABS: CHLORIDE 101 mmol/L (98-107); POTASSIUM 4.2 mmol/L (3.5-5.1); SODIUM 135 mmol/L (136-145)
[2022-12-27 08:15] LABS: BLOOD UREA NITROGEN 13.4 mg/dL (7-18)
[2022-12-27 08:16] LABS: ANION GAP 7 MMOL/L (8-16); BASO % 0.5 % (0-2.0); CO2 27 mmol/L (21-32); EOS % 1.7 % (0-4.5); GLUCOSE,RANDOM 108 mg/dL (74-106); HEMATOCRIT 32.6 % (32.4-45.2); LYMPH % 9.8 % (8-40); MCH 27.4 pg (25.7-33.7); MCHC 33.7 g/dl (32.0-36.0); MEAN CELL VOLUME 81.3 fl (80-96); MEAN PLT VOLUME 7.7 fl (7.5-11.1); MONO % 7.3 % (3.8-10.2); NEUT % 80.7 % (42.8-82.8); PLATELET COUNT 539 10^3/uL (134-434); RDW 21.7 % (11.6-15.6); WHITE BLOOD COUNT 10.6 K/mm3 (4.0-10.0)
[2022-12-27 08:19] LABS: CREATININE < 0.2 mg/dL (0.55-1.3); SGOT/AST 21 U/L (15-37); SGPT/ALT 35 U/L (13-61)
[2022-12-27 08:21] LABS: BILIRUBIN,TOTAL 0.6 mg/dL (0.2-1)
[2022-12-27 08:24] LABS: ALBUMIN 1.9 g/dl (3.4-5.0); ALK PHOS 105 U/L (45-117); CALCIUM 8.6 mg/dL (8.5-10.1); TOT PROT 5.5 g/dl (6.4-8.2)
[2022-12-27] MEDS: ACETAMINOPHEN 325 MG TABLET (FP) PO PRN ×2 (09:15→17:07)
[2022-12-27] MEDS: ASCORBIC ACID 500 MG/5 ML UNIT DOSE CUP GT SCH (09:15)
[2022-12-27] MEDS: METOPROLOL TARTRATE 25 MG TABLET (FP) GT SCH ×2 (09:17→21:41)
[2022-12-27] MEDS: POLYETHYLENE GLYCOL (HEALTHYLAX) 3350 17 GM PACKET GT SCH (21:41)
[2022-12-27] MEDS: MELATONIN 5 MG TABLETS NR SCH (21:43)
[2022-12-27] MEDS: ATORVASTATIN CA 10 MG TABLET (FP) GT SCH (21:43)
[2022-12-27] MEDS: MIRTAZAPINE 15 MG TABLET (FP) GT SCH (21:44)
[2022-12-28] MEDS: PANTOPRAZOLE SODIUM 40 MG VIAL IVPUSH SCH ×3 (01:49→17:15)
[2022-12-28] MEDS: dilTIAZem HCL 30 MG TABLET GT SCH ×3 (05:13→21:22)
[2022-12-28] MEDS: METOPROLOL TARTRATE 25 MG TABLET (FP) GT SCH ×2 (09:07→21:23)
[2022-12-28] MEDS: ASCORBIC ACID 500 MG/5 ML UNIT DOSE CUP GT SCH (09:08)
[2022-12-28] MEDS: ACETAMINOPHEN 325 MG TABLET (FP) PO PRN (09:08)
[2022-12-28 13:16] LABS: BASO % 0.7 % (0-2.0); EOS % 2.7 % (0-4.5); HEMATOCRIT 29.4 % (32.4-45.2); HEMOGLOBIN 9.9 GM/dL (10.7-15.3); LYMPH % 15.6 % (8-40); MCH 27.6 pg (25.7-33.7); MCHC 33.8 g/dl (32.0-36.0); MEAN CELL VOLUME 81.8 fl (80-96); MEAN PLT VOLUME 7.8 fl (7.5-11.1); MONO % 8.2 % (3.8-10.2); NEUT % 72.8 % (42.8-82.8); PLATELET COUNT 532 10^3/uL (134-434); WHITE BLOOD COUNT 9.7 K/mm3 (4.0-10.0)
[2022-12-28] MEDS: POLYETHYLENE GLYCOL (HEALTHYLAX) 3350 17 GM PACKET GT SCH (21:22)
[2022-12-28] MEDS: ATORVASTATIN CA 10 MG TABLET (FP) GT SCH (21:22)
[2022-12-28] MEDS: MELATONIN 5 MG TABLETS NR SCH (21:23)
[2022-12-28] MEDS: MIRTAZAPINE 15 MG TABLET (FP) GT SCH (21:24)
[2022-12-29] MEDS: PANTOPRAZOLE SODIUM 40 MG VIAL IVPUSH SCH ×3 (02:04→17:50)
[2022-12-29] MEDS: ACETAMINOPHEN 325 MG TABLET (FP) PO PRN ×2 (02:21→17:50)
[2022-12-29] MEDS: dilTIAZem HCL 30 MG TABLET GT SCH ×3 (05:41→21:36)
[2022-12-29 07:33] LABS: BASO % 0.9 % (0-2.0); EOS % 3.2 % (0-4.5); HEMATOCRIT 29.4 % (32.4-45.2); HEMOGLOBIN 9.6 GM/dL (10.7-15.3); LYMPH % 10.4 % (8-40); MCH 26.8 pg (25.7-33.7); MCHC 32.8 g/dl (32.0-36.0); MEAN CELL VOLUME 81.6 fl (80-96); MONO % 5.6 % (3.8-10.2); NEUT % 79.9 % (42.8-82.8); PLATELET COUNT 583 10^3/uL (134-434); RDW 20.6 % (11.6-15.6); WHITE BLOOD COUNT 11.8 K/mm3 (4.0-10.0)
[2022-12-29 07:47] LABS: POTASSIUM 4.8 mmol/L (3.5-5.1)
[2022-12-29 07:52] LABS: BLOOD UREA NITROGEN 12.2 mg/dL (7-18); CALCIUM 7.5 mg/dL (8.5-10.1)
[2022-12-29 07:53] LABS: ALBUMIN 1.7 g/dl (3.4-5.0)
[2022-12-29 07:56] LABS: CREATININE 0.2 mg/dL (0.55-1.3)
[2022-12-29 07:57] LABS: BILIRUBIN,TOTAL 0.9 mg/dL (0.2-1); TOT PROT 4.9 g/dl (6.4-8.2)
[2022-12-29] MEDS: ASCORBIC ACID 500 MG/5 ML UNIT DOSE CUP GT SCH (10:25)
[2022-12-29] MEDS: METOPROLOL TARTRATE 25 MG TABLET (FP) GT SCH ×2 (10:25→21:37)
[2022-12-29] MEDS: POLYETHYLENE GLYCOL (HEALTHYLAX) 3350 17 GM PACKET GT SCH (21:36)
[2022-12-29] MEDS: APIXABAN 2.5 MG TABLET GT SCH (21:36)
[2022-12-29] MEDS: ATORVASTATIN CA 10 MG TABLET (FP) GT SCH (21:36)
[2022-12-29] MEDS: MELATONIN 5 MG TABLETS NR SCH (21:37)
[2022-12-29] MEDS: MIRTAZAPINE 15 MG TABLET (FP) GT SCH (21:37)
[2022-12-30] MEDS: PANTOPRAZOLE SODIUM 40 MG VIAL IVPUSH SCH ×3 (01:22→17:24)
[2022-12-30] MEDS: dilTIAZem HCL 30 MG TABLET GT SCH ×3 (05:02→21:29)
[2022-12-30 07:51] LABS: BASO % 0.7 % (0-2.0); EOS % 2.7 % (0-4.5); HEMATOCRIT 31.4 % (32.4-45.2); HEMOGLOBIN 10.7 GM/dL (10.7-15.3); MCH 27.5 pg (25.7-33.7); MEAN PLT VOLUME 8.4 fl (7.5-11.1); MONO % 7.1 % (3.8-10.2); NEUT % 78.5 % (42.8-82.8); PLATELET COUNT 595 10^3/uL (134-434); RBC 3.88 M/mm3 (3.60-5.2); RDW 20.4 % (11.6-15.6); WHITE BLOOD COUNT 9.7 K/mm3 (4.0-10.0)
[2022-12-30 08:02] LABS: POTASSIUM 4.5 mmol/L (3.5-5.1)
[2022-12-30 08:04] LABS: ALBUMIN 1.7 g/dl (3.4-5.0); BLOOD UREA NITROGEN 12.9 mg/dL (7-18)
[2022-12-30 08:05] LABS: CALCIUM 7.2 mg/dL (8.5-10.1)
[2022-12-30 08:07] LABS: CREATININE 0.3 mg/dL (0.55-1.3)
[2022-12-30 08:08] LABS: BILIRUBIN,TOTAL 0.8 mg/dL (0.2-1)
[2022-12-30 08:09] LABS: TOT PROT 5.1 g/dl (6.4-8.2)
[2022-12-30] MEDS: ASCORBIC ACID 500 MG/5 ML UNIT DOSE CUP GT SCH (09:31)
[2022-12-30] MEDS: METOPROLOL TARTRATE 25 MG TABLET (FP) GT SCH ×2 (09:31→21:28)
[2022-12-30] MEDS: APIXABAN 2.5 MG TABLET GT SCH ×2 (09:31→21:28)
[2022-12-30] MEDS: POLYETHYLENE GLYCOL (HEALTHYLAX) 3350 17 GM PACKET GT SCH (21:27)
[2022-12-30] MEDS: MIRTAZAPINE 15 MG TABLET (FP) GT SCH (21:27)
[2022-12-30] MEDS: ATORVASTATIN CA 10 MG TABLET (FP) GT SCH (21:27)
[2022-12-30] MEDS: MELATONIN 5 MG TABLETS NR SCH (21:28)
[2022-12-30] MEDS: ACETAMINOPHEN 325 MG TABLET (FP) PO PRN (21:33)
[2022-12-31] MEDS: PANTOPRAZOLE SODIUM 40 MG VIAL IVPUSH SCH ×3 (01:20→17:31)
[2022-12-31] MEDS: dilTIAZem HCL 30 MG TABLET GT SCH ×3 (05:42→21:24)
[2022-12-31] MEDS: APIXABAN 2.5 MG TABLET GT SCH ×2 (09:20→21:24)
[2022-12-31] MEDS: METOPROLOL TARTRATE 25 MG TABLET (FP) GT SCH ×2 (09:21→21:25)
[2022-12-31] MEDS: ASCORBIC ACID 500 MG/5 ML UNIT DOSE CUP GT SCH (09:22)
[2022-12-31] MEDS: ACETAMINOPHEN 325 MG TABLET (FP) PO PRN (11:18)
[2022-12-31] MEDS: ATORVASTATIN CA 10 MG TABLET (FP) GT SCH (21:24)
[2022-12-31] MEDS: POLYETHYLENE GLYCOL (HEALTHYLAX) 3350 17 GM PACKET GT SCH (21:24)
[2022-12-31] MEDS: MIRTAZAPINE 15 MG TABLET (FP) GT SCH (21:25)
[2022-12-31] MEDS: MELATONIN 5 MG TABLETS NR SCH (21:25)
[2023-01-01] MEDS: PANTOPRAZOLE SODIUM 40 MG VIAL IVPUSH SCH ×3 (01:03→17:20)
[2023-01-01] MEDS: dilTIAZem HCL 30 MG TABLET GT SCH ×3 (05:04→21:34)
[2023-01-01] MEDS: APIXABAN 2.5 MG TABLET GT SCH ×2 (09:27→21:35)
[2023-01-01] MEDS: ASCORBIC ACID 500 MG/5 ML UNIT DOSE CUP GT SCH (09:27)
[2023-01-01] MEDS: METOPROLOL TARTRATE 25 MG TABLET (FP) GT SCH ×2 (09:27→21:35)
[2023-01-01] MEDS: ACETAMINOPHEN 325 MG TABLET (FP) PO PRN ×2 (12:05→21:50)
[2023-01-01] MEDS: AMINO ACIDS/PROTEIN HYDROLYS 30 ML LIQUID.PKT GT SCH (17:20)
[2023-01-01] MEDS: ATORVASTATIN CA 10 MG TABLET (FP) GT SCH (21:35)
[2023-01-01] MEDS: POLYETHYLENE GLYCOL (HEALTHYLAX) 3350 17 GM PACKET GT SCH (21:35)
[2023-01-01] MEDS: MIRTAZAPINE 15 MG TABLET (FP) GT SCH (21:36)
[2023-01-01] MEDS: MELATONIN 5 MG TABLETS NR SCH (21:36)
[2023-01-02] MEDS: PANTOPRAZOLE SODIUM 40 MG VIAL IVPUSH SCH ×3 (02:01→21:08)
[2023-01-02] MEDS: dilTIAZem HCL 30 MG TABLET GT SCH ×3 (05:36→21:07)
[2023-01-02] MEDS: AMINO ACIDS/PROTEIN HYDROLYS 30 ML LIQUID.PKT GT SCH ×3 (08:13→17:53)
[2023-01-02] MEDS: METOPROLOL TARTRATE 25 MG TABLET (FP) GT SCH ×2 (09:37→21:08)
[2023-01-02] MEDS: APIXABAN 2.5 MG TABLET GT SCH ×2 (09:37→21:07)
[2023-01-02] MEDS: ASCORBIC ACID 500 MG/5 ML UNIT DOSE CUP GT SCH (09:37)
[2023-01-02] MEDS ORDERED: ALBUTEROL SO4 0.083% IH SOL 2.5 MG/3 ML VIAL.NEB. NEB PRN (16:40)
[2023-01-02] MEDS: ALBUTEROL SO4 2.5/IPRATROPIUM 0.5 INH SOL 3 ML VIAL.NEB. NEB SCH ×2 (16:45→20:35)
[2023-01-02 19:46] LABS: BASO % 0.2 % (0-2.0); EOS % 0.3 % (0-4.5); HEMATOCRIT 33.6 % (32.4-45.2); HEMOGLOBIN 10.7 GM/dL (10.7-15.3); LYMPH % 4.3 % (8-40); MCHC 31.8 g/dl (32.0-36.0); MEAN CELL VOLUME 81.8 fl (80-96); MEAN PLT VOLUME 7.3 fl (7.5-11.1); NEUT % 89.2 % (42.8-82.8); PLATELET COUNT 719 10^3/uL (134-434); RBC 4.11 M/mm3 (3.60-5.2); WHITE BLOOD COUNT 16.3 K/mm3 (4.0-10.0)
[2023-01-02 20:06] LABS: POTASSIUM 4.8 mmol/L (3.5-5.1)
[2023-01-02 20:10] LABS: ALBUMIN 1.8 g/dl (3.4-5.0)
[2023-01-02 20:13] LABS: CREATININE 0.3 mg/dL (0.55-1.3)
[2023-01-02 20:14] LABS: TOT PROT 5.6 g/dl (6.4-8.2)
[2023-01-02 20:15] LABS: BILIRUBIN,TOTAL 0.4 mg/dL (0.2-1)
[2023-01-02 20:19] LABS: CALCIUM 8.3 mg/dL (8.5-10.1)
[2023-01-02] MEDS: POLYETHYLENE GLYCOL (HEALTHYLAX) 3350 17 GM PACKET GT SCH (21:07)
[2023-01-02] MEDS: ATORVASTATIN CA 10 MG TABLET (FP) GT SCH (21:08)
[2023-01-02] MEDS: MIRTAZAPINE 15 MG TABLET (FP) GT SCH (21:08)
[2023-01-02] MEDS: MELATONIN 5 MG TABLETS NR SCH (21:08)
[2023-01-03] MEDS: dilTIAZem HCL 30 MG TABLET GT SCH ×3 (05:16→21:16)
[2023-01-03] MEDS: ALBUTEROL SO4 2.5/IPRATROPIUM 0.5 INH SOL 3 ML VIAL.NEB. NEB SCH ×4 (08:05→20:05)
[2023-01-03] MEDS: METOPROLOL TARTRATE 25 MG TABLET (FP) GT SCH ×2 (10:57→21:15)
[2023-01-03] MEDS: AMINO ACIDS/PROTEIN HYDROLYS 30 ML LIQUID.PKT GT SCH ×3 (10:57→17:37)
[2023-01-03] MEDS: PANTOPRAZOLE SODIUM 40 MG VIAL IVPUSH SCH ×2 (10:57→21:16)
[2023-01-03] MEDS: APIXABAN 2.5 MG TABLET GT SCH ×2 (10:57→21:16)
[2023-01-03] MEDS: ASCORBIC ACID 500 MG/5 ML UNIT DOSE CUP GT SCH (10:58)
[2023-01-03 11:56] LABS: HEMATOCRIT 31.5 % (32.4-45.2); HEMOGLOBIN 10.2 GM/dL (10.7-15.3); MCH 26.6 pg (25.7-33.7); MCHC 32.3 g/dl (32.0-36.0); MEAN CELL VOLUME 82.3 fl (80-96); MEAN PLT VOLUME 7.5 fl (7.5-11.1); PLATELET COUNT 660 10^3/uL (134-434); RBC 3.82 M/mm3 (3.60-5.2); WHITE BLOOD COUNT 20.5 K/mm3 (4.0-10.0)
[2023-01-03 12:13] LABS: POTASSIUM 4.8 mmol/L (3.5-5.1)
[2023-01-03 12:15] LABS: ALBUMIN 1.6 g/dl (3.4-5.0); CALCIUM 8.1 mg/dL (8.5-10.1)
[2023-01-03 12:16] LABS: BLOOD UREA NITROGEN 18.9 mg/dL (7-18)
[2023-01-03 12:18] LABS: CREATININE 0.2 mg/dL (0.55-1.3)
[2023-01-03 12:20] LABS: BILIRUBIN,TOTAL 0.2 mg/dL (0.2-1); TOT PROT 5.2 g/dl (6.4-8.2)
[2023-01-03 12:27] LABS: ANISOCYTOSIS 1+; MACROCYTOSIS 0
[2023-01-03] MEDS: ACETAMINOPHEN 325 MG TABLET (FP) PO PRN ×2 (13:36→21:17)
[2023-01-03] MEDS: MELATONIN 5 MG TABLETS NR SCH (21:15)
[2023-01-03] MEDS: MIRTAZAPINE 15 MG TABLET (FP) GT SCH (21:15)
[2023-01-03] MEDS: ATORVASTATIN CA 10 MG TABLET (FP) GT SCH (21:16)
[2023-01-03] MEDS: POLYETHYLENE GLYCOL (HEALTHYLAX) 3350 17 GM PACKET GT SCH (21:18)
[2023-01-04] MEDS: dilTIAZem HCL 30 MG TABLET GT SCH ×3 (06:09→21:01)
[2023-01-04] MEDS: ALBUTEROL SO4 2.5/IPRATROPIUM 0.5 INH SOL 3 ML VIAL.NEB. NEB SCH ×4 (07:50→19:49)
[2023-01-04] MEDS: METOPROLOL TARTRATE 25 MG TABLET (FP) GT SCH ×2 (10:05→21:01)
[2023-01-04] MEDS: AMINO ACIDS/PROTEIN HYDROLYS 30 ML LIQUID.PKT GT SCH ×3 (10:05→17:12)
[2023-01-04] MEDS: PANTOPRAZOLE SODIUM 40 MG VIAL IVPUSH SCH ×2 (10:05→21:02)
[2023-01-04] MEDS: APIXABAN 2.5 MG TABLET GT SCH ×2 (10:05→21:01)
[2023-01-04] MEDS: ASCORBIC ACID 500 MG/5 ML UNIT DOSE CUP GT SCH (10:05)
[2023-01-04] MEDS: ACETAMINOPHEN 325 MG TABLET (FP) PO PRN ×2 (10:06→20:56)
[2023-01-04] MEDS: PIPERACILLIN/TAZOB 4.5 GM 4.5 GM in DEXTROSE 5%-WATER 100 ML IVPB SCH ×2 (10:08→17:12)
[2023-01-04] MEDS ORDERED: VANCOMYCIN 1 GRAM (PRE-DOCKED) 1,000 MG/250 ML BAG IVPB ONE (10:30)
[2023-01-04] MEDS ORDERED: LORazepam 2 MG/ML SDV VIAL IVPUSH STA (11:32)
[2023-01-04 13:09] LABS: HEMATOCRIT 29.9 % (32.4-45.2); HEMOGLOBIN 9.7 GM/dL (10.7-15.3); MCH 26.1 pg (25.7-33.7); MCHC 32.3 g/dl (32.0-36.0); MEAN CELL VOLUME 80.9 fl (80-96); MEAN PLT VOLUME 7.2 fl (7.5-11.1); PLATELET COUNT 808 10^3/uL (134-434); RBC 3.69 M/mm3 (3.60-5.2); RDW 19.8 % (11.6-15.6); WHITE BLOOD COUNT 20.9 K/mm3 (4.0-10.0)
[2023-01-04] MEDS ORDERED: VANCOMYCIN/WATER FOR INJ (PEG) 1,000 MG/200 ML BAG IVPB ONE (13:30)
[2023-01-04 13:33] LABS: POTASSIUM 4.4 mmol/L (3.5-5.1)
[2023-01-04 13:36] LABS: ALBUMIN 1.8 g/dl (3.4-5.0); CALCIUM 8.1 mg/dL (8.5-10.1)
[2023-01-04 13:37] LABS: BLOOD UREA NITROGEN 19.6 mg/dL (7-18)
[2023-01-04 13:40] LABS: CREATININE 0.2 mg/dL (0.55-1.3)
[2023-01-04 13:41] LABS: BILIRUBIN,TOTAL 0.3 mg/dL (0.2-1); TOT PROT 5.3 g/dl (6.4-8.2)
[2023-01-04 13:42] LABS: ANISOCYTOSIS 2+; MACROCYTOSIS 1+
[2023-01-04 15:17] LABS: EPI CELLS >36 /uL (0-25.1); HYALINE CASTS 8 /uL (0-3.1); PH,URINE >= 9.0 (5.0-8.0); URINE APPEARANCE TURBID; URINE BACTERIA >9,000 /uL (0-1359); URINE BILIRUBIN NEGATIVE (NEGATIVE); URINE COLOR YELLOW; URINE GLUCOSE (UA) NEGATIVE (NEGATIVE); URINE KETONE NEGATIVE (NEGATIVE); URINE LEUK ESTERASE 3+ (NEGATIVE); URINE NITRITE NEGATIVE (NEGATIVE); URINE PROTEIN 2+ (NEGATIVE); URINE WBC 29 /uL (0-25.8)
[2023-01-04 16:03] LABS: URINE RBC 168.5 /uL (0-23.9)
[2023-01-04] MEDS: MIRTAZAPINE 15 MG TABLET (FP) GT SCH (21:01)
[2023-01-04] MEDS: ATORVASTATIN CA 10 MG TABLET (FP) GT SCH (21:01)
[2023-01-04] MEDS: POLYETHYLENE GLYCOL (HEALTHYLAX) 3350 17 GM PACKET GT SCH (21:02)
[2023-01-04] MEDS: MELATONIN 5 MG TABLETS NR SCH (21:02)
[2023-01-05] MEDS: PIPERACILLIN/TAZOB 4.5 GM 4.5 GM in DEXTROSE 5%-WATER 100 ML IVPB SCH ×3 (03:36→17:51)
[2023-01-05] MEDS: dilTIAZem HCL 30 MG TABLET GT SCH ×3 (06:52→21:23)
[2023-01-05 07:45] LABS: POTASSIUM 5.1 mmol/L (3.5-5.1)
[2023-01-05] MEDS: ALBUTEROL SO4 2.5/IPRATROPIUM 0.5 INH SOL 3 ML VIAL.NEB. NEB SCH ×4 (07:45→20:51)
[2023-01-05 07:47] LABS: ALBUMIN 1.6 g/dl (3.4-5.0); CALCIUM 8.5 mg/dL (8.5-10.1)
[2023-01-05 07:48] LABS: BLOOD UREA NITROGEN 15.7 mg/dL (7-18)
[2023-01-05 07:50] LABS: CREATININE 0.2 mg/dL (0.55-1.3)
[2023-01-05 07:52] LABS: BILIRUBIN,TOTAL 0.3 mg/dL (0.2-1); TOT PROT 5.2 g/dl (6.4-8.2)
[2023-01-05 07:58] LABS: HEMATOCRIT 30.7 % (32.4-45.2); HEMOGLOBIN 9.8 GM/dL (10.7-15.3); MCH 26.4 pg (25.7-33.7); MCHC 31.8 g/dl (32.0-36.0); MEAN CELL VOLUME 83.1 fl (80-96); MEAN PLT VOLUME 7.2 fl (7.5-11.1); PLATELET COUNT 751 10^3/uL (134-434); RDW 19.9 % (11.6-15.6); WHITE BLOOD COUNT 19.1 K/mm3 (4.0-10.0)
[2023-01-05] MEDS: APIXABAN 2.5 MG TABLET GT SCH ×2 (09:30→21:23)
[2023-01-05] MEDS: METOPROLOL TARTRATE 25 MG TABLET (FP) GT SCH ×2 (09:30→21:24)
[2023-01-05] MEDS: PANTOPRAZOLE SODIUM 40 MG VIAL IVPUSH SCH ×2 (09:30→21:24)
[2023-01-05] MEDS: ASCORBIC ACID 500 MG/5 ML UNIT DOSE CUP GT SCH (09:30)
[2023-01-05] MEDS: AMINO ACIDS/PROTEIN HYDROLYS 30 ML LIQUID.PKT GT SCH ×3 (09:30→17:51)
[2023-01-05 09:54] LABS: ANISOCYTOSIS 2+; MACROCYTOSIS 2+; ROULEAU 1+
[2023-01-05] MEDS: LORazepam 2 MG/ML SDV VIAL IVPUSH PRN ×2 (10:22→23:19)
[2023-01-05] MEDS ORDERED: SODIUM CHLORIDE 250 ML IV STA (12:29)
[2023-01-05] MEDS: POLYETHYLENE GLYCOL (HEALTHYLAX) 3350 17 GM PACKET GT SCH (21:23)
[2023-01-05] MEDS: ATORVASTATIN CA 10 MG TABLET (FP) GT SCH (21:23)
[2023-01-05] MEDS: MELATONIN 5 MG TABLETS NR SCH (21:24)
[2023-01-05] MEDS: MIRTAZAPINE 15 MG TABLET (FP) GT SCH (21:26)
[2023-01-06] MEDS: ACETAMINOPHEN 325 MG TABLET (FP) PO PRN ×2 (00:21→11:28)
[2023-01-06] MEDS: PIPERACILLIN/TAZOB 4.5 GM 4.5 GM in DEXTROSE 5%-WATER 100 ML IVPB SCH ×3 (01:12→17:20)
[2023-01-06] MEDS ORDERED: METOPROLOL TARTRATE 25 MG TABLET (FP) PEG ONE (01:56)
[2023-01-06] MEDS: dilTIAZem HCL 30 MG TABLET GT SCH ×3 (06:45→21:18)
[2023-01-06 07:24] LABS: BASO % 0.4 % (0-2.0); EOS % 0.4 % (0-4.5); HEMATOCRIT 27.7 % (32.4-45.2); HEMOGLOBIN 8.7 GM/dL (10.7-15.3); LYMPH % 6.2 % (8-40); MCHC 31.5 g/dl (32.0-36.0); MEAN CELL VOLUME 82.4 fl (80-96); MEAN PLT VOLUME 6.7 fl (7.5-11.1); MONO % 7.2 % (3.8-10.2); NEUT % 85.8 % (42.8-82.8); PLATELET COUNT 779 10^3/uL (134-434); RBC 3.36 M/mm3 (3.60-5.2); RDW 20.2 % (11.6-15.6); WHITE BLOOD COUNT 15.4 K/mm3 (4.0-10.0)
[2023-01-06 07:41] LABS: POTASSIUM 4.6 mmol/L (3.5-5.1)
[2023-01-06 07:43] LABS: ALBUMIN 1.6 g/dl (3.4-5.0); CALCIUM 7.9 mg/dL (8.5-10.1)
[2023-01-06] MEDS: ALBUTEROL SO4 2.5/IPRATROPIUM 0.5 INH SOL 3 ML VIAL.NEB. NEB SCH ×4 (07:45→19:46)
[2023-01-06 07:46] LABS: CREATININE 0.2 mg/dL (0.55-1.3)
[2023-01-06 07:48] LABS: BILIRUBIN,TOTAL 0.2 mg/dL (0.2-1)
[2023-01-06] MEDS: APIXABAN 2.5 MG TABLET GT SCH ×2 (10:55→21:20)
[2023-01-06] MEDS: PANTOPRAZOLE SODIUM 40 MG VIAL IVPUSH SCH ×2 (10:55→21:24)
[2023-01-06] MEDS: ASCORBIC ACID 500 MG/5 ML UNIT DOSE CUP GT SCH (10:55)
[2023-01-06] MEDS: AMINO ACIDS/PROTEIN HYDROLYS 30 ML LIQUID.PKT GT SCH ×3 (10:55→17:22)
[2023-01-06] MEDS: METOPROLOL TARTRATE 25 MG TABLET (FP) GT SCH ×2 (13:22→21:23)
[2023-01-06] MEDS: LORazepam 2 MG/ML SDV VIAL IVPUSH PRN (17:20)
[2023-01-06] MEDS: POLYETHYLENE GLYCOL (HEALTHYLAX) 3350 17 GM PACKET GT SCH (21:21)
[2023-01-06] MEDS: ATORVASTATIN CA 10 MG TABLET (FP) GT SCH (21:22)
[2023-01-06] MEDS: MIRTAZAPINE 15 MG TABLET (FP) GT SCH (21:24)
[2023-01-06] MEDS: MELATONIN 5 MG TABLETS NR SCH (21:24)
[2023-01-07] MEDS: PIPERACILLIN/TAZOB 4.5 GM 4.5 GM in DEXTROSE 5%-WATER 100 ML IVPB SCH ×2 (01:35→10:05)
[2023-01-07] MEDS: dilTIAZem HCL 30 MG TABLET GT SCH ×4 (05:01→22:52)
[2023-01-07] MEDS: ALBUTEROL SO4 2.5/IPRATROPIUM 0.5 INH SOL 3 ML VIAL.NEB. NEB SCH ×3 (07:46→15:16)
[2023-01-07] MEDS: COLLAGENASE CLOSTRIDIUM HIST. 30 GRAMS TUBE TP SCH (10:03)
[2023-01-07] MEDS: AMINO ACIDS/PROTEIN HYDROLYS 30 ML LIQUID.PKT GT SCH ×3 (10:03→18:14)
[2023-01-07] MEDS: METOPROLOL TARTRATE 25 MG TABLET (FP) GT SCH ×3 (10:05→22:52)
[2023-01-07] MEDS: APIXABAN 2.5 MG TABLET GT SCH ×2 (10:05→21:04)
[2023-01-07] MEDS: LORazepam 2 MG/ML SDV VIAL IVPUSH PRN (10:05)
[2023-01-07] MEDS: ASCORBIC ACID 500 MG/5 ML UNIT DOSE CUP GT SCH (10:06)
[2023-01-07] MEDS: ACETAMINOPHEN 325 MG TABLET (FP) PO PRN (10:06)
[2023-01-07] MEDS: PANTOPRAZOLE SODIUM 40 MG VIAL IVPUSH SCH ×2 (10:06→21:06)
[2023-01-07] MEDS ORDERED: SODIUM CHLORIDE 250 ML IV ONE (14:30)
[2023-01-07] MEDS ORDERED: MEROPENEM 1 GM in DEXTROSE 5%-WATER 100 ML IVPB ONE (16:08)
[2023-01-07] MEDS: POTASSIUM CHLORIDE 10 MEQ in SODIUM CHLORIDE 0.45% 1,000 ML IVPB SCH (17:50)
[2023-01-07] MEDS: POLYETHYLENE GLYCOL (HEALTHYLAX) 3350 17 GM PACKET GT SCH (21:04)
[2023-01-07] MEDS: ATORVASTATIN CA 10 MG TABLET (FP) GT SCH (21:04)
[2023-01-07] MEDS: MIRTAZAPINE 15 MG TABLET (FP) GT SCH (21:04)
[2023-01-07] MEDS: MELATONIN 5 MG TABLETS NR SCH (21:04)
[2023-01-07] MEDS: FERROUS SO4 300 MG/5 ML ORAL SOLN UNIT DOSE CUPS GT SCH (21:04)
[2023-01-08] MEDS: MEROPENEM 1 GM in DEXTROSE 5%-WATER 100 ML IVPB SCH ×3 (01:20→17:10)
[2023-01-08] MEDS: FERROUS SO4 300 MG/5 ML ORAL SOLN UNIT DOSE CUPS GT SCH ×3 (06:27→21:04)
[2023-01-08] MEDS: dilTIAZem HCL 30 MG TABLET GT SCH ×3 (06:27→21:04)
[2023-01-08] MEDS: METOPROLOL TARTRATE 25 MG TABLET (FP) GT SCH ×3 (06:27→21:09)
[2023-01-08 07:19] LABS: HEMATOCRIT 26.3 % (32.4-45.2); HEMOGLOBIN 9.2 GM/dL (10.7-15.3); MCH 28.3 pg (25.7-33.7); MCHC 34.8 g/dl (32.0-36.0); MEAN CELL VOLUME 81.4 fl (80-96); MEAN PLT VOLUME 7.2 fl (7.5-11.1); PLATELET COUNT 727 10^3/uL (134-434); RBC 3.23 M/mm3 (3.60-5.2); RDW 20.3 % (11.6-15.6); WHITE BLOOD COUNT 8.7 K/mm3 (4.0-10.0)
[2023-01-08 07:39] LABS: CHLORIDE 104 mmol/L (98-107); POTASSIUM 4.3 mmol/L (3.5-5.1); SODIUM 140 mmol/L (136-145)
[2023-01-08 07:43] LABS: CALCIUM 7.8 mg/dL (8.5-10.1)
[2023-01-08 07:44] LABS: ALBUMIN 1.5 g/dl (3.4-5.0); ANION GAP 3 MMOL/L (8-16); BLOOD UREA NITROGEN 15.8 mg/dL (7-18); CO2 33 mmol/L (21-32); GLUCOSE,RANDOM 117 mg/dL (74-106)
[2023-01-08 07:47] LABS: CREATININE < 0.2 mg/dL (0.55-1.3); SGOT/AST 33 U/L (15-37); SGPT/ALT 37 U/L (13-61)
[2023-01-08 07:49] LABS: BILIRUBIN,TOTAL 0.2 mg/dL (0.2-1); TOT PROT 4.6 g/dl (6.4-8.2)
[2023-01-08 07:50] LABS: ALK PHOS 128 U/L (45-117)
[2023-01-08] MEDS: AMINO ACIDS/PROTEIN HYDROLYS 30 ML LIQUID.PKT GT SCH ×3 (09:50→17:11)
[2023-01-08] MEDS: PANTOPRAZOLE SODIUM 40 MG VIAL IVPUSH SCH ×2 (09:50→21:05)
[2023-01-08] MEDS: APIXABAN 2.5 MG TABLET GT SCH ×2 (09:50→21:04)
[2023-01-08] MEDS: POTASSIUM CHLORIDE 10 MEQ in SODIUM CHLORIDE 0.45% 1,000 ML IVPB SCH (11:34)
[2023-01-08] MEDS: ACETAMINOPHEN 325 MG TABLET (FP) PO PRN (11:36)
[2023-01-08] MEDS: ASCORBIC ACID 500 MG/5 ML UNIT DOSE CUP GT SCH (11:37)
[2023-01-08] MEDS: COLLAGENASE CLOSTRIDIUM HIST. 30 GRAMS TUBE TP SCH (11:38)
[2023-01-08] MEDS: ATORVASTATIN CA 10 MG TABLET (FP) GT SCH (21:03)
[2023-01-08] MEDS: MELATONIN 5 MG TABLETS NR SCH (21:03)
[2023-01-08] MEDS: MIRTAZAPINE 15 MG TABLET (FP) GT SCH (21:04)
[2023-01-08] MEDS: POLYETHYLENE GLYCOL (HEALTHYLAX) 3350 17 GM PACKET GT SCH (21:09)
[2023-01-09] MEDS: MEROPENEM 1 GM in DEXTROSE 5%-WATER 100 ML IVPB SCH ×3 (02:05→17:36)
[2023-01-09] MEDS: POTASSIUM CHLORIDE 10 MEQ in SODIUM CHLORIDE 0.45% 1,000 ML IVPB SCH ×2 (05:01→10:04)
[2023-01-09] MEDS: ACETAMINOPHEN 325 MG TABLET (FP) PO PRN ×2 (05:01→21:46)
[2023-01-09] MEDS: dilTIAZem HCL 30 MG TABLET GT SCH ×3 (05:01→21:47)
[2023-01-09] MEDS: FERROUS SO4 300 MG/5 ML ORAL SOLN UNIT DOSE CUPS GT SCH ×3 (05:01→21:45)
[2023-01-09] MEDS: METOPROLOL TARTRATE 25 MG TABLET (FP) GT SCH ×3 (05:02→21:47)
[2023-01-09] MEDS: APIXABAN 2.5 MG TABLET GT SCH ×2 (10:05→21:46)
[2023-01-09] MEDS: COLLAGENASE CLOSTRIDIUM HIST. 30 GRAMS TUBE TP SCH (10:05)
[2023-01-09] MEDS: AMINO ACIDS/PROTEIN HYDROLYS 30 ML LIQUID.PKT GT SCH ×3 (10:05→17:37)
[2023-01-09] MEDS: ASCORBIC ACID 500 MG/5 ML UNIT DOSE CUP GT SCH (10:05)
[2023-01-09] MEDS: PANTOPRAZOLE SODIUM 40 MG VIAL IVPUSH SCH ×2 (10:05→22:27)
[2023-01-09] MEDS: ATORVASTATIN CA 10 MG TABLET (FP) GT SCH (21:45)
[2023-01-09] MEDS: POLYETHYLENE GLYCOL (HEALTHYLAX) 3350 17 GM PACKET GT SCH (21:47)
[2023-01-09] MEDS: MELATONIN 5 MG TABLETS NR SCH (21:47)
[2023-01-09] MEDS: MIRTAZAPINE 15 MG TABLET (FP) GT SCH (21:47)
[2023-01-10] MEDS: MEROPENEM 1 GM in DEXTROSE 5%-WATER 100 ML IVPB SCH ×3 (01:07→17:14)
[2023-01-10] MEDS: POTASSIUM CHLORIDE 10 MEQ in SODIUM CHLORIDE 0.45% 1,000 ML IVPB SCH ×4 (01:58→23:01)
[2023-01-10] MEDS: ACETAMINOPHEN 325 MG TABLET (FP) PO PRN ×2 (03:50→09:51)
[2023-01-10] MEDS: dilTIAZem HCL 30 MG TABLET GT SCH ×3 (05:23→23:02)
[2023-01-10] MEDS: FERROUS SO4 300 MG/5 ML ORAL SOLN UNIT DOSE CUPS GT SCH ×3 (05:23→23:01)
[2023-01-10] MEDS: METOPROLOL TARTRATE 25 MG TABLET (FP) GT SCH ×3 (05:23→23:03)
[2023-01-10 08:18] LABS: BASO % 0.6 % (0-2.0); EOS % 2.3 % (0-4.5); HEMATOCRIT 27.3 % (32.4-45.2); HEMOGLOBIN 9.1 GM/dL (10.7-15.3); LYMPH % 8.7 % (8-40); MCH 27.6 pg (25.7-33.7); MCHC 33.4 g/dl (32.0-36.0); MEAN CELL VOLUME 82.8 fl (80-96); MEAN PLT VOLUME 6.9 fl (7.5-11.1); MONO % 6.9 % (3.8-10.2); NEUT % 81.5 % (42.8-82.8); PLATELET COUNT 697 10^3/uL (134-434); RDW 20.2 % (11.6-15.6); WHITE BLOOD COUNT 11.6 K/mm3 (4.0-10.0)
[2023-01-10 08:23] LABS: CHLORIDE 103 mmol/L (98-107); POTASSIUM 4.5 mmol/L (3.5-5.1); SODIUM 134 mmol/L (136-145)
[2023-01-10 08:27] LABS: ALBUMIN 1.4 g/dl (3.4-5.0); ANION GAP 5 MMOL/L (8-16); CALCIUM 7.7 mg/dL (8.5-10.1); CO2 27 mmol/L (21-32)
[2023-01-10 08:28] LABS: BLOOD UREA NITROGEN 11.6 mg/dL (7-18); GLUCOSE,RANDOM 148 mg/dL (74-106)
[2023-01-10 08:30] LABS: SGPT/ALT 36 U/L (13-61)
[2023-01-10 08:31] LABS: CREATININE < 0.2 mg/dL (0.55-1.3); SGOT/AST 30 U/L (15-37)
[2023-01-10 08:32] LABS: BILIRUBIN,TOTAL 0.2 mg/dL (0.2-1); TOT PROT 4.4 g/dl (6.4-8.2)
[2023-01-10 08:33] LABS: ALK PHOS 108 U/L (45-117)
[2023-01-10] MEDS: ASCORBIC ACID 500 MG/5 ML UNIT DOSE CUP GT SCH (09:33)
[2023-01-10] MEDS: PANTOPRAZOLE SODIUM 40 MG VIAL IVPUSH SCH ×2 (09:34→23:05)
[2023-01-10] MEDS: APIXABAN 2.5 MG TABLET GT SCH ×2 (09:35→23:02)
[2023-01-10] MEDS: AMINO ACIDS/PROTEIN HYDROLYS 30 ML LIQUID.PKT GT SCH ×3 (09:35→17:14)
[2023-01-10] MEDS: COLLAGENASE CLOSTRIDIUM HIST. 30 GRAMS TUBE TP SCH (09:36)
[2023-01-10] MEDS: MELATONIN 5 MG TABLETS NR SCH (23:03)
[2023-01-10] MEDS: ATORVASTATIN CA 10 MG TABLET (FP) GT SCH (23:03)
[2023-01-10] MEDS: POLYETHYLENE GLYCOL (HEALTHYLAX) 3350 17 GM PACKET GT SCH (23:04)
[2023-01-10] MEDS: MIRTAZAPINE 15 MG TABLET (FP) GT SCH (23:04)
[2023-01-11] MEDS: ACETAMINOPHEN 325 MG TABLET (FP) PO PRN ×2 (00:59→05:51)
[2023-01-11] MEDS: MEROPENEM 1 GM in DEXTROSE 5%-WATER 100 ML IVPB SCH ×3 (02:31→17:11)
[2023-01-11] MEDS: FERROUS SO4 300 MG/5 ML ORAL SOLN UNIT DOSE CUPS GT SCH ×3 (05:51→23:21)
[2023-01-11] MEDS: METOPROLOL TARTRATE 25 MG TABLET (FP) GT SCH ×3 (05:51→21:15)
[2023-01-11] MEDS: dilTIAZem HCL 30 MG TABLET GT SCH ×3 (05:51→21:15)
[2023-01-11] MEDS: AMINO ACIDS/PROTEIN HYDROLYS 30 ML LIQUID.PKT GT SCH ×3 (09:00→17:11)
[2023-01-11] MEDS: PANTOPRAZOLE SODIUM 40 MG VIAL IVPUSH SCH ×2 (09:39→23:21)
[2023-01-11] MEDS: APIXABAN 2.5 MG TABLET GT SCH ×2 (09:41→21:15)
[2023-01-11] MEDS: ASCORBIC ACID 500 MG/5 ML UNIT DOSE CUP GT SCH (09:42)
[2023-01-11] MEDS: ACETYLCYSTEINE 20% 200MG/ML 4 ML VIAL *FOR ORAL / INH USE ONLY NEB SCH ×3 (12:10→20:34)
[2023-01-11] MEDS: ALBUTEROL SO4 0.083% IH SOL 2.5 MG/3 ML VIAL.NEB. NEB SCH ×3 (12:10→20:35)
[2023-01-11] MEDS: COLLAGENASE CLOSTRIDIUM HIST. 30 GRAMS TUBE TP SCH (12:12)
[2023-01-11] MEDS: POTASSIUM CHLORIDE 10 MEQ in SODIUM CHLORIDE 0.45% 1,000 ML IVPB SCH (15:13)
[2023-01-11] MEDS: MIRTAZAPINE 15 MG TABLET (FP) GT SCH (21:15)
[2023-01-11] MEDS: MELATONIN 5 MG TABLETS NR SCH (21:15)
[2023-01-11] MEDS: ATORVASTATIN CA 10 MG TABLET (FP) GT SCH (21:15)
[2023-01-11] MEDS: NYSTATIN POWDER 100,000 UNITS/GM - 15 GM TOPICAL POWDER TP SCH (23:21)
[2023-01-11] MEDS: POLYETHYLENE GLYCOL (HEALTHYLAX) 3350 17 GM PACKET GT SCH (23:22)
[2023-01-12] MEDS: POTASSIUM CHLORIDE 10 MEQ in SODIUM CHLORIDE 0.45% 1,000 ML IVPB SCH ×3 (02:22→14:20)
[2023-01-12] MEDS: MEROPENEM 1 GM in DEXTROSE 5%-WATER 100 ML IVPB SCH ×3 (02:23→17:09)
[2023-01-12] MEDS: dilTIAZem HCL 30 MG TABLET GT SCH ×3 (06:00→22:47)
[2023-01-12] MEDS: METOPROLOL TARTRATE 25 MG TABLET (FP) GT SCH ×3 (06:00→23:26)
[2023-01-12] MEDS: FERROUS SO4 300 MG/5 ML ORAL SOLN UNIT DOSE CUPS GT SCH ×3 (06:00→22:47)
[2023-01-12] MEDS: ALBUTEROL SO4 0.083% IH SOL 2.5 MG/3 ML VIAL.NEB. NEB SCH ×4 (07:25→20:55)
[2023-01-12] MEDS: ACETYLCYSTEINE 20% 200MG/ML 4 ML VIAL *FOR ORAL / INH USE ONLY NEB SCH ×4 (07:25→20:54)
[2023-01-12] MEDS: AMINO ACIDS/PROTEIN HYDROLYS 30 ML LIQUID.PKT GT SCH ×3 (08:45→17:09)
[2023-01-12] MEDS: PANTOPRAZOLE SODIUM 40 MG VIAL IVPUSH SCH ×2 (09:30→22:45)
[2023-01-12] MEDS: ASCORBIC ACID 500 MG/5 ML UNIT DOSE CUP GT SCH (09:30)
[2023-01-12] MEDS: APIXABAN 2.5 MG TABLET GT SCH ×2 (09:32→22:46)
[2023-01-12] MEDS: NYSTATIN POWDER 100,000 UNITS/GM - 15 GM TOPICAL POWDER TP SCH ×2 (12:30→22:49)
[2023-01-12] MEDS: COLLAGENASE CLOSTRIDIUM HIST. 30 GRAMS TUBE TP SCH (12:30)
[2023-01-12] MEDS: ACETAMINOPHEN 325 MG TABLET (FP) PO PRN (19:48)
[2023-01-12] MEDS: MELATONIN 5 MG TABLETS NR SCH (22:45)
[2023-01-12] MEDS: MIRTAZAPINE 15 MG TABLET (FP) GT SCH (22:46)
[2023-01-12] MEDS: ATORVASTATIN CA 10 MG TABLET (FP) GT SCH (22:47)
[2023-01-12] MEDS: POLYETHYLENE GLYCOL (HEALTHYLAX) 3350 17 GM PACKET GT SCH (22:49)
[2023-01-13] MEDS: ACETAMINOPHEN 325 MG TABLET (FP) PO PRN ×3 (01:08→20:26)
[2023-01-13] MEDS: MEROPENEM 1 GM in DEXTROSE 5%-WATER 100 ML IVPB SCH ×4 (01:09→17:00)
[2023-01-13] MEDS: POTASSIUM CHLORIDE 10 MEQ in SODIUM CHLORIDE 0.45% 1,000 ML IVPB SCH ×3 (04:42→18:11)
[2023-01-13] MEDS: dilTIAZem HCL 30 MG TABLET GT SCH ×3 (05:52→22:48)
[2023-01-13] MEDS: METOPROLOL TARTRATE 25 MG TABLET (FP) GT SCH ×3 (05:53→22:49)
[2023-01-13] MEDS: FERROUS SO4 300 MG/5 ML ORAL SOLN UNIT DOSE CUPS GT SCH ×3 (05:55→22:48)
[2023-01-13] MEDS: ACETYLCYSTEINE 20% 200MG/ML 4 ML VIAL *FOR ORAL / INH USE ONLY NEB SCH ×4 (08:48→20:29)
[2023-01-13] MEDS: ALBUTEROL SO4 0.083% IH SOL 2.5 MG/3 ML VIAL.NEB. NEB SCH ×4 (08:48→20:29)
[2023-01-13] MEDS: APIXABAN 2.5 MG TABLET GT SCH ×2 (09:32→22:48)
[2023-01-13] MEDS: MULTIVIT-MINERALS ORAL LIQUID PO SCH (09:32)
[2023-01-13] MEDS: AMINO ACIDS/PROTEIN HYDROLYS 30 ML LIQUID.PKT GT SCH ×3 (09:32→16:59)
[2023-01-13] MEDS: ASCORBIC ACID 500 MG/5 ML UNIT DOSE CUP GT SCH (09:32)
[2023-01-13] MEDS: PANTOPRAZOLE SODIUM 40 MG VIAL IVPUSH SCH ×2 (09:32→22:49)
[2023-01-13] MEDS: COLLAGENASE CLOSTRIDIUM HIST. 30 GRAMS TUBE TP SCH (14:51)
[2023-01-13] MEDS: NYSTATIN POWDER 100,000 UNITS/GM - 15 GM TOPICAL POWDER TP SCH ×2 (14:51→22:49)
[2023-01-13] MEDS ORDERED: MIDODRINE HCL 5 MG TABLET GT ONE (19:56)
[2023-01-13] MEDS: ATORVASTATIN CA 10 MG TABLET (FP) GT SCH (22:48)
[2023-01-13] MEDS: POLYETHYLENE GLYCOL (HEALTHYLAX) 3350 17 GM PACKET GT SCH (22:48)
[2023-01-13] MEDS: MIRTAZAPINE 15 MG TABLET (FP) GT SCH (22:49)
[2023-01-13] MEDS: MELATONIN 5 MG TABLETS NR SCH (22:49)
[2023-01-14] MEDS: MEROPENEM 1 GM in DEXTROSE 5%-WATER 100 ML IVPB SCH ×2 (01:29→10:32)
[2023-01-14] MEDS: ACETAMINOPHEN 325 MG TABLET (FP) PO PRN (01:30)
[2023-01-14] MEDS: dilTIAZem HCL 30 MG TABLET GT SCH (05:37)
[2023-01-14] MEDS: FERROUS SO4 300 MG/5 ML ORAL SOLN UNIT DOSE CUPS GT SCH (05:37)
[2023-01-14] MEDS: METOPROLOL TARTRATE 25 MG TABLET (FP) GT SCH (05:37)
[2023-01-14] MEDS: POTASSIUM CHLORIDE 10 MEQ in SODIUM CHLORIDE 0.45% 1,000 ML IVPB SCH (05:37)
[2023-01-14] MEDS: ALBUTEROL SO4 0.083% IH SOL 2.5 MG/3 ML VIAL.NEB. NEB SCH ×2 (07:40→11:35)
[2023-01-14] MEDS: ACETYLCYSTEINE 20% 200MG/ML 4 ML VIAL *FOR ORAL / INH USE ONLY NEB SCH ×2 (07:40→11:40)
[2023-01-14] MEDS: AMINO ACIDS/PROTEIN HYDROLYS 30 ML LIQUID.PKT GT SCH ×2 (08:49→11:33)
[2023-01-14] MEDS ORDERED: ACETAMINOPHEN 1000 MG/100 ML BAG IVPB ONE (09:28)
[2023-01-14] MEDS: APIXABAN 2.5 MG TABLET GT SCH (09:47)
[2023-01-14] MEDS: MULTIVIT-MINERALS ORAL LIQUID PO SCH (09:47)
[2023-01-14] MEDS: PANTOPRAZOLE SODIUM 40 MG VIAL IVPUSH SCH (09:47)
[2023-01-14] MEDS: ASCORBIC ACID 500 MG/5 ML UNIT DOSE CUP GT SCH (09:49)
[2023-01-14 10:18] VITALS: BP 106/61; RESP 24
[2023-01-14] MEDS: COLLAGENASE CLOSTRIDIUM HIST. 30 GRAMS TUBE TP SCH (10:33)
[2023-01-14] MEDS: NYSTATIN POWDER 100,000 UNITS/GM - 15 GM TOPICAL POWDER TP SCH (10:33)
[2023-01-14 14:09] VITALS: PULSE 92; TEMP 97.7
== END 2023-01-14 12:30 | DRG 870 ==
LOC: JER 03:03 → JERBED 05:31 → J2W 19:57 → J5S 01-09 21:15
PROVIDERS: ADMIT Student in an Organized Health Care Education/Training Program; ATTEND Family Medicine
PROC: 30233N1 Transfusion of Nonautologous Red Blood Cells into Peripheral Vein, Percutaneous Approach (ICD-10-PCS; principal; 2022-12-26)
PROC: 5A1955Z Respiratory Ventilation, Greater than 96 Consecutive Hours (ICD-10-PCS; 2022-12-30)
PROC: 0HBRXZZ Excision of Toe Nail, External Approach (ICD-10-PCS; 2022-12-30)
DX: A41.9 Sepsis, unspecified organism (principal); L89.224 Pressure ulcer of left hip, stage 4; L89.154 Pressure ulcer of sacral region, stage 4; J69.0 Pneumonitis due to inhalation of food and vomit; E87.3 Alkalosis; E87.1 Hypo-osmolality and hyponatremia; J96.10 Chronic respiratory failure, unspecified whether with hypoxia or hypercapnia; Z99.11 Dependence on respirator [ventilator] status; R64 Cachexia; Z68.1 Body mass index [BMI] 19.9 or less, adult; N39.0 Urinary tract infection, site not specified; K92.2 Gastrointestinal hemorrhage, unspecified; D64.9 Anemia, unspecified; I48.91 Unspecified atrial fibrillation; G30.9 Alzheimer's disease, unspecified; F02.80 Dementia in other diseases classified elsewhere, unspecified severity, without behavioral disturbance, psychotic disturbance, mood disturbance, and anxiety; I10 Essential (primary) hypertension; K21.9 Gastro-esophageal reflux disease without esophagitis; D72.829 Elevated white blood cell count, unspecified; B35.1 Tinea unguium; E78.5 Hyperlipidemia, unspecified; C50.919 Malignant neoplasm of unspecified site of unspecified female breast; Z93.0 Tracheostomy status; Z93.1 Gastrostomy status; B96.20 Unspecified Escherichia coli [E. coli] as the cause of diseases classified elsewhere
CPT/HCPCS: 0241U-QW; 36415; 36430; 36600; 70450-TC; 71045-TC-FY; 71260-TC; 74177-TC; 80053; 81003; 82272; 82803; 83605; 83735; 84100; 84484; 85025; 85027; 85610; 85730; 86922; 87040; 87070; 87077; 87086; 87184; 87186; 87205; 93005; 93010; 94002; 94640; 99285-25; C9803-CS; P9058; Q9967; U0003; U0005

== ENCOUNTER 2023-01-25 23:59 | Inpatient (IN) | payer OTHER ==
[2023-01-26 00:42] LABS: BASO % 0.4 % (0-2.0); EOS % 0.7 % (0-4.5); HEMATOCRIT 27.9 % (32.4-45.2); HEMOGLOBIN 9.4 GM/dL (10.7-15.3); LYMPH % 10.2 % (8-40); MCH 28.6 pg (25.7-33.7); MCHC 33.6 g/dl (32.0-36.0); MEAN CELL VOLUME 85.2 fl (80-96); MEAN PLT VOLUME 7.1 fl (7.5-11.1); MONO % 19.9 % (3.8-10.2); NEUT % 68.8 % (42.8-82.8); PLATELET COUNT 482 10^3/uL (134-434); RBC 3.28 M/mm3 (3.60-5.2); RDW 24.3 % (11.6-15.6); WHITE BLOOD COUNT 9.9 K/mm3 (4.0-10.0)
[2023-01-26] MEDS ORDERED: PIPERACILLIN/TAZOB 3.375 GM 3.375 GM in DEXTROSE 5%-WATER - 50 ML IVPB ONE (00:47)
[2023-01-26 00:52] LABS: INR 1.69 (0.83-1.09); PROTHROMBIN TIME (PATIENT) 19.5 SEC (9.7-13.0)
[2023-01-26 00:55] LABS: ACTIVATED PTT 31.7 SECONDS (25.2-36.5)
[2023-01-26 00:57] LABS: VENOUS BASE EXCESS -5.5 mmol/L (-2-2); VENOUS O2 SATURATION 94.2 % (70-80)
[2023-01-26 01:03] LABS: VENOUS PCO2 72.4 mmHg (38-52); VENOUS PH 7.146 (7.310-7.410)
[2023-01-26 01:05] LABS: POTASSIUM 3.4 mmol/L (3.5-5.1)
[2023-01-26 01:07] LABS: CALCIUM 7.7 mg/dL (8.5-10.1)
[2023-01-26 01:08] LABS: ALBUMIN 1.6 g/dl (3.4-5.0); BLOOD UREA NITROGEN 14.3 mg/dL (7-18); MAGNESIUM 1.9 mg/dL (1.8-2.4)
[2023-01-26 01:10] LABS: CREATININE 0.2 mg/dL (0.55-1.3); PHOSPHOROUS 2.9 mg/dL (2.5-4.9)
[2023-01-26 01:12] LABS: BILIRUBIN,TOTAL 0.2 mg/dL (0.2-1); TOT PROT 4.9 g/dl (6.4-8.2)
[2023-01-26 01:16] LABS: N-TERMINAL BNP 419.5 pg/ml (5-450)
[2023-01-26] MEDS ORDERED: PIPERACILLIN/TAZOB 3.375 GM 3.375 GM/50 ML BAG IVPB ONE (01:48)
[2023-01-26 03:21] LABS: ALLENS TEST POSITIVE; ARTERIAL BLD GAS O2 SATURATION 99.4 % (95-98); ARTERIAL BLOOD GAS BASE EXCESS 5.6 mmol/L (-2-2); ARTERIAL BLOOD GAS PO2 184.3 mmHg (80-100); ARTERIAL BLOOD GAS pH 7.542 (7.350-7.450)
[2023-01-26 03:22] LABS: VENT RATE 24
[2023-01-26 03:23] LABS: MACROCYTOSIS 2+
[2023-01-26] MEDS ORDERED: KCL 10 MEQ IVPB 10 MEQ/100 ML INFUS.BAG IVPB SCH (04:15)
[2023-01-26] MEDS ORDERED: PATIENT'S OWN MEDICATION (NON-FORMULARY) (Menthol/Zinc Oxide [Calmoseptine Ointment] 71 GM TD SCH (06:00)
[2023-01-26 06:35] LABS: BASO % 0.2 % (0-2.0); EOS % 0.1 % (0-4.5); HEMATOCRIT 25.4 % (32.4-45.2); HEMOGLOBIN 8.7 GM/dL (10.7-15.3); LYMPH % 3.8 % (8-40); MCHC 34.3 g/dl (32.0-36.0); MEAN CELL VOLUME 84.6 fl (80-96); MEAN PLT VOLUME 7.4 fl (7.5-11.1); MONO % 1.5 % (3.8-10.2); NEUT % 94.4 % (42.8-82.8); PLATELET COUNT 468 10^3/uL (134-434); RDW 24.6 % (11.6-15.6); RETICULOCYTES 1.58 % (0.5-1.5); WHITE BLOOD COUNT 8.6 K/mm3 (4.0-10.0)
[2023-01-26 06:54] LABS: POTASSIUM 3.8 mmol/L (3.5-5.1)
[2023-01-26 06:56] LABS: ALBUMIN 1.6 g/dl (3.4-5.0); BLOOD UREA NITROGEN 15.1 mg/dL (7-18); CALCIUM 7.5 mg/dL (8.5-10.1); MAGNESIUM 1.9 mg/dL (1.8-2.4)
[2023-01-26 06:58] LABS: PHOSPHOROUS 2.9 mg/dL (2.5-4.9)
[2023-01-26 07:00] LABS: CREATININE 0.2 mg/dL (0.55-1.3)
[2023-01-26 07:01] LABS: BILIRUBIN,TOTAL 0.3 mg/dL (0.2-1); TOT PROT 4.8 g/dl (6.4-8.2)
[2023-01-26 08:25] LABS: ANISOCYTOSIS 1+; MACROCYTOSIS 0
[2023-01-26] MEDS: METOPROLOL TARTRATE 25 MG TABLET (FP) GT SCH ×3 (08:37→21:41)
[2023-01-26] MEDS ORDERED: MEROPENEM 1 GM VIAL (RESTRICTED TO ID) IVPB ONE ×3 (08:43→18:36)
[2023-01-26] MEDS: dilTIAZem HCL 30 MG TABLET GT SCH ×3 (08:45→21:31)
[2023-01-26] MEDS: MEROPENEM 1 GM in DEXTROSE 5%-WATER 100 ML IVPB SCH ×3 (08:55→19:07)
[2023-01-26] MEDS: INSULIN SLIDING SCALE (NOVOLOG) 1 VIAL SQ SCH ×4 (08:56→22:20)
[2023-01-26] MEDS ORDERED: APIXABAN 2.5 MG TABLET ONE (09:45)
[2023-01-26] MEDS ORDERED: VANCOMYCIN/WATER 1250 MG 1,250 MG/250 ML BAG IVPB ONE ×2 (09:51→16:39)
[2023-01-26] MEDS ORDERED: ACETAMINOPHEN 325 MG TABLET (FP) ONE (09:51)
[2023-01-26] MEDS ORDERED: PANTOPRAZOLE SODIUM 40 MG VIAL ONE (09:51)
[2023-01-26] MEDS ORDERED: VANCOMYCIN/WATER 1,250 MG/250 ML BAG (RESTRICTED TO ID ONLY) IVPB SCH (10:00)
[2023-01-26] MEDS ORDERED: PATIENT'S OWN MEDICATION (NON-FORMULARY) (Multivitamin [Multiple Vitamins] 1 EACH Tablet) GT SCH (10:00)
[2023-01-26] MEDS ORDERED: MEROPENEM 1 GM in DEXTROSE 5%-WATER 100 ML IVPB SCH (10:00)
[2023-01-26] MEDS: PANTOPRAZOLE SODIUM 40 MG VIAL IVPUSH SCH (10:05)
[2023-01-26] MEDS: VANCOMYCIN/WATER 1250 MG 1,250 MG/250 ML BAG IVPB SCH ×2 (10:25→17:46)
[2023-01-26] MEDS: APIXABAN 2.5 MG TABLET GT SCH ×2 (10:26→21:40)
[2023-01-26] MEDS: FERROUS SO4 300 MG/5 ML ORAL SOLN UNIT DOSE CUPS GT SCH ×3 (10:26→21:40)
[2023-01-26] MEDS: ACETAMINOPHEN 325 MG TABLET (FP) PO PRN (10:27)
[2023-01-26] MEDS: AMINO ACIDS/PROTEIN HYDROLYS 30 ML LIQUID.PKT GT SCH ×3 (10:49→16:52)
[2023-01-26] MEDS: MULTIVIT-MINERALS ORAL LIQUID PO SCH (10:49)
[2023-01-26] MEDS: ASCORBIC ACID 500 MG/5 ML UNIT DOSE CUP GT SCH (10:49)
[2023-01-26 13:47] LABS: EPI CELLS 19 /uL (0-25.1); HYALINE CASTS 1 /uL (0-3.1); URINE APPEARANCE CLOUDY; URINE BACTERIA 367 /uL (0-1359); URINE BILIRUBIN NEGATIVE (NEGATIVE); URINE COLOR YELLOW; URINE GLUCOSE (UA) NEGATIVE (NEGATIVE); URINE KETONE NEGATIVE (NEGATIVE); URINE LEUK ESTERASE 2+ (NEGATIVE); URINE NITRITE NEGATIVE (NEGATIVE); URINE PROTEIN 1+ (NEGATIVE); URINE RBC 160 /uL (0-23.9); URINE UROBILINOGEN 0.2 mg/dL (0.2-1.0); URINE WBC 1649 /uL (0-25.8)
[2023-01-26] MEDS: COLLAGENASE CLOSTRIDIUM HIST. 30 GRAMS TUBE TP SCH (16:52)
[2023-01-26] MEDS: ATORVASTATIN CA 10 MG TABLET (FP) GT SCH (21:40)
[2023-01-26] MEDS: MELATONIN 5 MG TABLETS GT SCH (21:40)
[2023-01-26] MEDS: MIRTAZAPINE 15 MG TABLET (FP) GT SCH (21:41)
[2023-01-26] MEDS: POLYETHYLENE GLYCOL (HEALTHYLAX) 3350 17 GM PACKET GT SCH (21:41)
[2023-01-27] MEDS: ACETAMINOPHEN 325 MG TABLET (FP) PO PRN ×2 (01:50→15:19)
[2023-01-27] MEDS: FERROUS SO4 300 MG/5 ML ORAL SOLN UNIT DOSE CUPS GT SCH ×3 (05:02→21:04)
[2023-01-27] MEDS: dilTIAZem HCL 30 MG TABLET GT SCH ×3 (05:02→21:04)
[2023-01-27] MEDS: METOPROLOL TARTRATE 25 MG TABLET (FP) GT SCH ×3 (05:02→21:05)
[2023-01-27] MEDS: INSULIN SLIDING SCALE (NOVOLOG) 1 VIAL SQ SCH ×4 (06:03→21:06)
[2023-01-27] MEDS: AMINO ACIDS/PROTEIN HYDROLYS 30 ML LIQUID.PKT GT SCH ×3 (08:32→17:19)
[2023-01-27] MEDS: MULTIVIT-MINERALS ORAL LIQUID PO SCH (09:32)
[2023-01-27] MEDS: APIXABAN 2.5 MG TABLET GT SCH ×2 (09:32→21:04)
[2023-01-27] MEDS: PANTOPRAZOLE SODIUM 40 MG VIAL IVPUSH SCH (09:32)
[2023-01-27] MEDS: ASCORBIC ACID 500 MG/5 ML UNIT DOSE CUP GT SCH (09:32)
[2023-01-27] MEDS: COLLAGENASE CLOSTRIDIUM HIST. 30 GRAMS TUBE TP SCH (09:33)
[2023-01-27 10:42] LABS: BASO % 0.3 % (0-2.0); EOS % 0.1 % (0-4.5); HEMATOCRIT 25.8 % (32.4-45.2); HEMOGLOBIN 8.6 GM/dL (10.7-15.3); LYMPH % 9.4 % (8-40); MCH 28.4 pg (25.7-33.7); MCHC 33.2 g/dl (32.0-36.0); MEAN CELL VOLUME 85.5 fl (80-96); MEAN PLT VOLUME 7.8 fl (7.5-11.1); MONO % 10.3 % (3.8-10.2); NEUT % 79.9 % (42.8-82.8); PLATELET COUNT 492 10^3/uL (134-434); RBC 3.02 M/mm3 (3.60-5.2); WHITE BLOOD COUNT 11.3 K/mm3 (4.0-10.0)
[2023-01-27 11:06] LABS: POTASSIUM 3.1 mmol/L (3.5-5.1)
[2023-01-27 11:17] LABS: CALCIUM 7.7 mg/dL (8.5-10.1)
[2023-01-27 11:19] LABS: ALBUMIN 1.5 g/dl (3.4-5.0)
[2023-01-27 11:21] LABS: CREATININE 0.2 mg/dL (0.55-1.3)
[2023-01-27 11:23] LABS: BILIRUBIN,TOTAL 0.2 mg/dL (0.2-1); TOT PROT 4.8 g/dl (6.4-8.2)
[2023-01-27] MEDS ORDERED: VANCOMYCIN/WATER FOR INJ (PEG) 1,000 MG/200 ML BAG IVPB ONE (16:03)
[2023-01-27] MEDS: MEROPENEM 1 GM in DEXTROSE 5%-WATER 100 ML IVPB SCH ×3 (17:19→17:58)
[2023-01-27] MEDS: VANCOMYCIN/WATER 1,250 MG/250 ML BAG (RESTRICTED TO ID ONLY) IVPB SCH ×2 (17:57→17:58)
[2023-01-27] MEDS: MELATONIN 5 MG TABLETS GT SCH (21:05)
[2023-01-27] MEDS: ATORVASTATIN CA 10 MG TABLET (FP) GT SCH (21:05)
[2023-01-27] MEDS: MIRTAZAPINE 15 MG TABLET (FP) GT SCH (21:06)
[2023-01-27] MEDS: POLYETHYLENE GLYCOL (HEALTHYLAX) 3350 17 GM PACKET GT SCH (21:07)
[2023-01-28] MEDS: MEROPENEM 1 GM in DEXTROSE 5%-WATER 100 ML IVPB SCH ×4 (02:04→19:18)
[2023-01-28] MEDS: FERROUS SO4 300 MG/5 ML ORAL SOLN UNIT DOSE CUPS GT SCH ×3 (06:10→21:26)
[2023-01-28] MEDS: METOPROLOL TARTRATE 25 MG TABLET (FP) GT SCH ×3 (06:10→21:27)
[2023-01-28] MEDS: dilTIAZem HCL 30 MG TABLET GT SCH ×3 (06:10→21:26)
[2023-01-28] MEDS: INSULIN SLIDING SCALE (NOVOLOG) 1 VIAL SQ SCH ×4 (06:11→21:28)
[2023-01-28] MEDS: AMINO ACIDS/PROTEIN HYDROLYS 30 ML LIQUID.PKT GT SCH ×3 (08:52→17:25)
[2023-01-28 09:23] LABS: BASO % 0.4 % (0-2.0); EOS % 1.2 % (0-4.5); HEMATOCRIT 25.8 % (32.4-45.2); HEMOGLOBIN 8.8 GM/dL (10.7-15.3); MCH 28.8 pg (25.7-33.7); MEAN CELL VOLUME 84.6 fl (80-96); MEAN PLT VOLUME 7.7 fl (7.5-11.1); NEUT % 65.4 % (42.8-82.8); PLATELET COUNT 514 10^3/uL (134-434); RBC 3.05 M/mm3 (3.60-5.2); RDW 24.3 % (11.6-15.6); WHITE BLOOD COUNT 7.5 K/mm3 (4.0-10.0)
[2023-01-28 09:47] LABS: CHLORIDE 108 mmol/L (98-107); POTASSIUM 3.1 mmol/L (3.5-5.1); SODIUM 141 mmol/L (136-145)
[2023-01-28 09:51] LABS: ALBUMIN 1.7 g/dl (3.4-5.0); ANION GAP 7 MMOL/L (8-16); BLOOD UREA NITROGEN 17.7 mg/dL (7-18); CALCIUM 7.4 mg/dL (8.5-10.1); CO2 26 mmol/L (21-32); GLUCOSE,RANDOM 124 mg/dL (74-106)
[2023-01-28 09:54] LABS: CREATININE < 0.2 mg/dL (0.55-1.3); SGOT/AST 41 U/L (15-37); SGPT/ALT 53 U/L (13-61)
[2023-01-28 09:56] LABS: BILIRUBIN,TOTAL 0.3 mg/dL (0.2-1); TOT PROT 4.8 g/dl (6.4-8.2)
[2023-01-28 09:58] LABS: ALK PHOS 103 U/L (45-117)
[2023-01-28] MEDS: MULTIVIT-MINERALS ORAL LIQUID PO SCH (10:08)
[2023-01-28] MEDS: ASCORBIC ACID 500 MG/5 ML UNIT DOSE CUP GT SCH (10:08)
[2023-01-28] MEDS: COLLAGENASE CLOSTRIDIUM HIST. 30 GRAMS TUBE TP SCH (10:10)
[2023-01-28] MEDS: PANTOPRAZOLE SODIUM 40 MG VIAL IVPUSH SCH (10:10)
[2023-01-28] MEDS: APIXABAN 2.5 MG TABLET GT SCH ×2 (10:10→21:26)
[2023-01-28] MEDS: KCL 10 MEQ IVPB 10 MEQ/100 ML INFUS.BAG IVPB SCH ×2 (11:24→13:43)
[2023-01-28 17:14] VITALS: BMI 18.1
[2023-01-28] MEDS: ATORVASTATIN CA 10 MG TABLET (FP) GT SCH (21:27)
[2023-01-28] MEDS: POLYETHYLENE GLYCOL (HEALTHYLAX) 3350 17 GM PACKET GT SCH (21:27)
[2023-01-28] MEDS: MELATONIN 5 MG TABLETS GT SCH (21:27)
[2023-01-28] MEDS: MIRTAZAPINE 15 MG TABLET (FP) GT SCH (21:28)
[2023-01-29] MEDS: MEROPENEM 1 GM in DEXTROSE 5%-WATER 100 ML IVPB SCH ×2 (02:35→10:21)
[2023-01-29] MEDS: dilTIAZem HCL 30 MG TABLET GT SCH ×3 (05:53→21:03)
[2023-01-29] MEDS: METOPROLOL TARTRATE 25 MG TABLET (FP) GT SCH ×3 (05:54→21:04)
[2023-01-29] MEDS: INSULIN SLIDING SCALE (NOVOLOG) 1 VIAL SQ SCH ×4 (06:18→21:08)
[2023-01-29] MEDS: FERROUS SO4 300 MG/5 ML ORAL SOLN UNIT DOSE CUPS GT SCH ×3 (06:19→21:05)
[2023-01-29 09:10] LABS: BASO % 0.5 % (0-2.0); EOS % 2.4 % (0-4.5); HEMATOCRIT 29.5 % (32.4-45.2); HEMOGLOBIN 9.9 GM/dL (10.7-15.3); LYMPH % 12.7 % (8-40); MCH 28.7 pg (25.7-33.7); MCHC 33.5 g/dl (32.0-36.0); MEAN CELL VOLUME 85.6 fl (80-96); MEAN PLT VOLUME 7.6 fl (7.5-11.1); MONO % 9.4 % (3.8-10.2); PLATELET COUNT 518 10^3/uL (134-434); RBC 3.44 M/mm3 (3.60-5.2); RDW 23.7 % (11.6-15.6)
[2023-01-29 09:43] LABS: POTASSIUM 3.7 mmol/L (3.5-5.1)
[2023-01-29 09:50] LABS: ALBUMIN 1.8 g/dl (3.4-5.0); CALCIUM 7.7 mg/dL (8.5-10.1); MAGNESIUM 2.1 mg/dL (1.8-2.4)
[2023-01-29 09:51] LABS: BLOOD UREA NITROGEN 14.3 mg/dL (7-18)
[2023-01-29 09:52] LABS: ANISOCYTOSIS 2+; MACROCYTOSIS 1+
[2023-01-29 09:53] LABS: CREATININE 0.2 mg/dL (0.55-1.3)
[2023-01-29 09:55] LABS: BILIRUBIN,TOTAL 0.3 mg/dL (0.2-1); TOT PROT 5.1 g/dl (6.4-8.2)
[2023-01-29] MEDS: APIXABAN 2.5 MG TABLET GT SCH ×2 (10:21→21:05)
[2023-01-29] MEDS: ASCORBIC ACID 500 MG/5 ML UNIT DOSE CUP GT SCH (10:21)
[2023-01-29] MEDS: MULTIVIT-MINERALS ORAL LIQUID PO SCH (10:21)
[2023-01-29] MEDS: AMINO ACIDS/PROTEIN HYDROLYS 30 ML LIQUID.PKT GT SCH ×3 (10:21→17:00)
[2023-01-29] MEDS: COLLAGENASE CLOSTRIDIUM HIST. 30 GRAMS TUBE TP SCH (10:22)
[2023-01-29] MEDS: PANTOPRAZOLE SODIUM 40 MG VIAL IVPUSH SCH (10:22)
[2023-01-29] MEDS ORDERED: ACETAMINOPHEN 650 MG/20.3 ML ORAL SOLUTION (CUPS) GT ONE (21:04)
[2023-01-29] MEDS: MIRTAZAPINE 15 MG TABLET (FP) GT SCH (21:04)
[2023-01-29] MEDS: ATORVASTATIN CA 10 MG TABLET (FP) GT SCH (21:05)
[2023-01-29] MEDS: POLYETHYLENE GLYCOL (HEALTHYLAX) 3350 17 GM PACKET GT SCH (21:05)
[2023-01-29] MEDS: MELATONIN 5 MG TABLETS GT SCH (21:05)
[2023-01-29] MEDS: ACETAMINOPHEN 325 MG TABLET (FP) PO PRN (21:05)
[2023-01-30] MEDS: FERROUS SO4 300 MG/5 ML ORAL SOLN UNIT DOSE CUPS GT SCH (05:22)
[2023-01-30] MEDS: dilTIAZem HCL 30 MG TABLET GT SCH (05:23)
[2023-01-30] MEDS: METOPROLOL TARTRATE 25 MG TABLET (FP) GT SCH (05:24)
[2023-01-30] MEDS: INSULIN SLIDING SCALE (NOVOLOG) 1 VIAL SQ SCH ×2 (06:37→11:04)
[2023-01-30] MEDS: AMINO ACIDS/PROTEIN HYDROLYS 30 ML LIQUID.PKT GT SCH ×2 (08:45→11:02)
[2023-01-30] MEDS: PANTOPRAZOLE SODIUM 40 MG VIAL IVPUSH SCH (09:45)
[2023-01-30] MEDS: ASCORBIC ACID 500 MG/5 ML UNIT DOSE CUP GT SCH (09:45)
[2023-01-30] MEDS: APIXABAN 2.5 MG TABLET GT SCH (09:45)
[2023-01-30] MEDS: MULTIVIT-MINERALS ORAL LIQUID PO SCH (09:45)
[2023-01-30 10:15] VITALS: PULSE 91
[2023-01-30] MEDS ORDERED: ACETAMINOPHEN 1000 MG/100 ML BAG IVPB ONE (10:31)
[2023-01-30] MEDS: COLLAGENASE CLOSTRIDIUM HIST. 30 GRAMS TUBE TP SCH (10:59)
[2023-01-30 13:03] VITALS: BP 102/67; RESP 34; TEMP 98.6
== END 2023-01-30 11:38 | DRG 207 ==
LOC: JER 23:59 → JERBED 01-26 02:51 → J5S 01-26 20:26
PROVIDERS: ADMIT Internal Medicine; ATTEND Family Medicine
PROC: 5A1955Z Respiratory Ventilation, Greater than 96 Consecutive Hours (ICD-10-PCS; principal; 2023-01-26)
DX: J95.851 Ventilator associated pneumonia (principal); L89.324 Pressure ulcer of left buttock, stage 4; L89.154 Pressure ulcer of sacral region, stage 4; J96.10 Chronic respiratory failure, unspecified whether with hypoxia or hypercapnia; R64 Cachexia; Z68.1 Body mass index [BMI] 19.9 or less, adult; N39.0 Urinary tract infection, site not specified; G40.909 Epilepsy, unspecified, not intractable, without status epilepticus; Z79.01 Long term (current) use of anticoagulants; G30.9 Alzheimer's disease, unspecified; I25.2 Old myocardial infarction; D64.9 Anemia, unspecified; Z93.1 Gastrostomy status; F02.80 Dementia in other diseases classified elsewhere, unspecified severity, without behavioral disturbance, psychotic disturbance, mood disturbance, and anxiety; Z86.74 Personal history of sudden cardiac arrest; E87.6 Hypokalemia; E88.09 Other disorders of plasma-protein metabolism, not elsewhere classified; I10 Essential (primary) hypertension; I48.0 Paroxysmal atrial fibrillation; Y83.9 Surgical procedure, unspecified as the cause of abnormal reaction of the patient, or of later complication, without mention of misadventure at the time of the procedure; G31.83 Neurocognitive disorder with Lewy bodies
CPT/HCPCS: 0241U-QW; 36415; 36600; 71045-TC-FY; 80053; 81003; 82728; 82803; 82962; 83540; 83550; 83605; 83735; 83880; 84100; 84484; 85025; 85045; 85610; 85730; 86850; 86900; 86901; 87040; 87070; 87077; 87086; 87186; 87205; 93005; 93010; 94002; 99285-25

== ENCOUNTER 2023-02-01 07:22 | Inpatient (IN) | payer OTHER ==
[2023-02-01 07:34] VITALS: BMI 20.1
[2023-02-01 09:28] LABS: HEMATOCRIT 31.5 % (32.4-45.2); HEMOGLOBIN 10.6 GM/dL (10.7-15.3); MCH 29.2 pg (25.7-33.7); MCHC 33.7 g/dl (32.0-36.0); MEAN CELL VOLUME 86.7 fl (80-96); MEAN PLT VOLUME 7.3 fl (7.5-11.1); PLATELET COUNT 545 10^3/uL (134-434); RBC 3.63 M/mm3 (3.60-5.2); RDW 24.5 % (11.6-15.6)
[2023-02-01 09:46] LABS: CHLORIDE 104 mmol/L (98-107); SODIUM 133 mmol/L (136-145)
[2023-02-01 09:51] LABS: ALBUMIN 1.8 g/dl (3.4-5.0); CO2 29 mmol/L (21-32); GLUCOSE,RANDOM 91 mg/dL (74-106)
[2023-02-01 09:54] LABS: CREATININE 0.2 mg/dL (0.55-1.3)
[2023-02-01 09:56] LABS: BILIRUBIN,TOTAL 0.6 mg/dL (0.2-1)
[2023-02-01 09:57] LABS: ALK PHOS 125 U/L (45-117)
[2023-02-01 10:01] LABS: ANION GAP -1 MMOL/L (8-16); POTASSIUM 9.7 mmol/L (3.5-5.1); SGOT/AST 119 U/L (15-37); SGPT/ALT 76 U/L (13-61)
[2023-02-01 10:05] LABS: EPI CELLS 1 /uL (0-25.1); HYALINE CASTS 2 /uL (0-3.1); PH,URINE 7.5 (5.0-8.0); URINE APPEARANCE TURBID; URINE BACTERIA 34 /uL (0-1359); URINE BILIRUBIN NEGATIVE (NEGATIVE); URINE COLOR YELLOW; URINE GLUCOSE (UA) NEGATIVE (NEGATIVE); URINE KETONE NEGATIVE (NEGATIVE); URINE LEUK ESTERASE 2+ (NEGATIVE); URINE NITRITE NEGATIVE (NEGATIVE); URINE PROTEIN TRACE (NEGATIVE); URINE UROBILINOGEN 0.2 mg/dL (0.2-1.0); URINE WBC 1128 /uL (0-25.8)
[2023-02-01 10:40] LABS: CHLORIDE 107 mmol/L (98-107); POTASSIUM 4.9 mmol/L (3.5-5.1); SODIUM 140 mmol/L (136-145)
[2023-02-01 10:42] LABS: ANION GAP 4 MMOL/L (8-16); BLOOD UREA NITROGEN 12.1 mg/dL (7-18); CALCIUM 8.1 mg/dL (8.5-10.1); CO2 30 mmol/L (21-32); GLUCOSE,RANDOM 95 mg/dL (74-106)
[2023-02-01 10:45] LABS: CREATININE < 0.2 mg/dL (0.55-1.3)
[2023-02-01 11:02] LABS: ANISOCYTOSIS 2+; MACROCYTOSIS 0
[2023-02-01 11:35] LABS: URINE RBC 555.7 /uL (0-23.9)
[2023-02-01 11:42] LABS: YEAST MODERATE PRESENT (NEGATIVE)
[2023-02-01] MEDS ORDERED: ALBUTEROL SO4 2.5/IPRATROPIUM 0.5 INH SOL 3 ML VIAL.NEB. NEB PRN (22:21)
[2023-02-01] MEDS: APIXABAN 2.5 MG TABLET GT SCH (23:15)
[2023-02-01] MEDS: PIPERACILLIN/TAZOB 3.375 GM 3.375 GM in DEXTROSE 5%-WATER - 50 ML IVPB SCH (23:16)
[2023-02-02] MEDS: METOPROLOL TARTRATE 25 MG TABLET (FP) GT SCH ×3 (06:05→22:06)
[2023-02-02] MEDS ORDERED: ACETAMINOPHEN 650 MG/20.3 ML ORAL SOLUTION (CUPS) GT ONE (06:24)
[2023-02-02] MEDS: PIPERACILLIN/TAZOB 3.375 GM 3.375 GM in DEXTROSE 5%-WATER - 50 ML IVPB SCH (06:35)
[2023-02-02 10:01] LABS: BASO % 1.1 % (0-2.0); EOS % 2.1 % (0-4.5); HEMOGLOBIN 9.9 GM/dL (10.7-15.3); LYMPH % 14.9 % (8-40); MCH 29.4 pg (25.7-33.7); MCHC 34.1 g/dl (32.0-36.0); MEAN CELL VOLUME 86.2 fl (80-96); MEAN PLT VOLUME 7.7 fl (7.5-11.1); MONO % 12.1 % (3.8-10.2); NEUT % 69.8 % (42.8-82.8); PLATELET COUNT 577 10^3/uL (134-434); RBC 3.36 M/mm3 (3.60-5.2); RDW 24.1 % (11.6-15.6); WHITE BLOOD COUNT 8.7 K/mm3 (4.0-10.0)
[2023-02-02 10:15] LABS: POTASSIUM 5.1 mmol/L (3.5-5.1)
[2023-02-02 10:21] LABS: CALCIUM 8.2 mg/dL (8.5-10.1)
[2023-02-02 10:22] LABS: ALBUMIN 1.9 g/dl (3.4-5.0); BLOOD UREA NITROGEN 12.3 mg/dL (7-18)
[2023-02-02 10:25] LABS: CREATININE 0.3 mg/dL (0.55-1.3)
[2023-02-02 10:26] LABS: BILIRUBIN,TOTAL 1.1 mg/dL (0.2-1); TOT PROT 5.6 g/dl (6.4-8.2)
[2023-02-02] MEDS: dilTIAZem HCL 30 MG TABLET GT SCH ×3 (10:27→17:49)
[2023-02-02] MEDS: POLYETHYLENE GLYCOL (HEALTHYLAX) 3350 17 GM PACKET GT SCH (10:27)
[2023-02-02] MEDS: APIXABAN 2.5 MG TABLET GT SCH ×2 (10:27→22:05)
[2023-02-02] MEDS: FERROUS SO4 300 MG/5 ML ORAL SOLN UNIT DOSE CUPS GT SCH ×3 (10:27→17:49)
[2023-02-02] MEDS: PIPERACILLIN/TAZOB 4.5 GM 4.5 GM in DEXTROSE 5%-WATER 100 ML IVPB SCH ×2 (11:25→17:48)
[2023-02-02] MEDS: VANCOMYCIN/WATER FOR INJ (PEG) 1,000 MG/200 ML BAG IVPB SCH (11:25)
[2023-02-02] MEDS: MIRTAZAPINE 15 MG TABLET (FP) GT SCH (22:03)
[2023-02-02] MEDS: MELATONIN 5 MG TABLETS GT SCH (22:05)
[2023-02-02] MEDS: ATORVASTATIN CA 10 MG TABLET (FP) GT SCH (22:06)
[2023-02-03] MEDS: PIPERACILLIN/TAZOB 4.5 GM 4.5 GM in DEXTROSE 5%-WATER 100 ML IVPB SCH ×3 (01:30→18:02)
[2023-02-03] MEDS: PIPERACILLIN/TAZOB 3.375 GM 3.375 GM in DEXTROSE 5%-WATER - 50 ML IVPB SCH (02:42)
[2023-02-03] MEDS: METOPROLOL TARTRATE 25 MG TABLET (FP) GT SCH ×3 (06:16→21:45)
[2023-02-03] MEDS: dilTIAZem HCL 30 MG TABLET GT SCH ×3 (10:19→18:03)
[2023-02-03] MEDS: POLYETHYLENE GLYCOL (HEALTHYLAX) 3350 17 GM PACKET GT SCH (10:19)
[2023-02-03] MEDS: VANCOMYCIN/WATER FOR INJ (PEG) 1,000 MG/200 ML BAG IVPB SCH (10:19)
[2023-02-03] MEDS: FERROUS SO4 300 MG/5 ML ORAL SOLN UNIT DOSE CUPS GT SCH ×3 (10:19→18:03)
[2023-02-03] MEDS: APIXABAN 2.5 MG TABLET GT SCH ×2 (10:20→21:45)
[2023-02-03] MEDS: AMINO ACIDS/PROTEIN HYDROLYS 30 ML LIQUID.PKT PEG SCH ×2 (15:22→18:03)
[2023-02-03] MEDS: ATORVASTATIN CA 10 MG TABLET (FP) GT SCH (21:45)
[2023-02-03] MEDS: MIRTAZAPINE 15 MG TABLET (FP) GT SCH (21:45)
[2023-02-03] MEDS: MELATONIN 5 MG TABLETS GT SCH (21:45)
[2023-02-04] MEDS: PIPERACILLIN/TAZOB 4.5 GM 4.5 GM in DEXTROSE 5%-WATER 100 ML IVPB SCH ×3 (01:27→17:45)
[2023-02-04] MEDS: METOPROLOL TARTRATE 25 MG TABLET (FP) GT SCH ×3 (05:20→21:28)
[2023-02-04] MEDS: AMINO ACIDS/PROTEIN HYDROLYS 30 ML LIQUID.PKT PEG SCH ×3 (08:27→17:45)
[2023-02-04] MEDS: APIXABAN 2.5 MG TABLET GT SCH ×2 (09:02→21:29)
[2023-02-04] MEDS: POLYETHYLENE GLYCOL (HEALTHYLAX) 3350 17 GM PACKET GT SCH (09:02)
[2023-02-04] MEDS: FERROUS SO4 300 MG/5 ML ORAL SOLN UNIT DOSE CUPS GT SCH ×3 (09:02→18:58)
[2023-02-04] MEDS: dilTIAZem HCL 30 MG TABLET GT SCH ×3 (09:02→17:46)
[2023-02-04] MEDS: VANCOMYCIN/WATER FOR INJ (PEG) 1,000 MG/200 ML BAG IVPB SCH (11:11)
[2023-02-04] MEDS: ATORVASTATIN CA 10 MG TABLET (FP) GT SCH (21:29)
[2023-02-04] MEDS: MELATONIN 5 MG TABLETS GT SCH (21:29)
[2023-02-04] MEDS: MIRTAZAPINE 15 MG TABLET (FP) GT SCH (21:29)
[2023-02-05] MEDS: PIPERACILLIN/TAZOB 4.5 GM 4.5 GM in DEXTROSE 5%-WATER 100 ML IVPB SCH ×3 (01:24→17:54)
[2023-02-05] MEDS: METOPROLOL TARTRATE 25 MG TABLET (FP) GT SCH ×3 (05:33→21:01)
[2023-02-05] MEDS: AMINO ACIDS/PROTEIN HYDROLYS 30 ML LIQUID.PKT PEG SCH ×3 (09:00→17:54)
[2023-02-05] MEDS: dilTIAZem HCL 30 MG TABLET GT SCH ×3 (09:00→17:54)
[2023-02-05] MEDS: FERROUS SO4 300 MG/5 ML ORAL SOLN UNIT DOSE CUPS GT SCH ×3 (09:00→17:54)
[2023-02-05] MEDS: APIXABAN 2.5 MG TABLET GT SCH ×2 (09:42→21:01)
[2023-02-05] MEDS: POLYETHYLENE GLYCOL (HEALTHYLAX) 3350 17 GM PACKET GT SCH (09:44)
[2023-02-05] MEDS: VANCOMYCIN/WATER FOR INJ (PEG) 1,000 MG/200 ML BAG IVPB SCH (12:28)
[2023-02-05] MEDS ORDERED: ACETAMINOPHEN 1000 MG/100 ML BAG IVPB PRN (20:37)
[2023-02-05] MEDS: MELATONIN 5 MG TABLETS GT SCH (20:59)
[2023-02-05] MEDS: ATORVASTATIN CA 10 MG TABLET (FP) GT SCH (21:00)
[2023-02-05] MEDS: MIRTAZAPINE 15 MG TABLET (FP) GT SCH (21:01)
[2023-02-06] MEDS: PIPERACILLIN/TAZOB 4.5 GM 4.5 GM in DEXTROSE 5%-WATER 100 ML IVPB SCH ×3 (01:57→17:42)
[2023-02-06] MEDS: METOPROLOL TARTRATE 25 MG TABLET (FP) GT SCH ×3 (05:33→21:27)
[2023-02-06] MEDS: FERROUS SO4 300 MG/5 ML ORAL SOLN UNIT DOSE CUPS GT SCH ×3 (09:00→17:44)
[2023-02-06] MEDS: AMINO ACIDS/PROTEIN HYDROLYS 30 ML LIQUID.PKT PEG SCH ×3 (09:00→17:44)
[2023-02-06] MEDS: APIXABAN 2.5 MG TABLET GT SCH ×2 (09:34→21:29)
[2023-02-06] MEDS: POLYETHYLENE GLYCOL (HEALTHYLAX) 3350 17 GM PACKET GT SCH (09:34)
[2023-02-06] MEDS: dilTIAZem HCL 30 MG TABLET GT SCH ×3 (09:34→17:44)
[2023-02-06] MEDS: COLLAGENASE CLOSTRIDIUM HIST. 30 GRAMS TUBE TP SCH (14:38)
[2023-02-06] MEDS: ATORVASTATIN CA 10 MG TABLET (FP) GT SCH (21:23)
[2023-02-06] MEDS: MIRTAZAPINE 15 MG TABLET (FP) GT SCH (21:26)
[2023-02-06] MEDS: MELATONIN 5 MG TABLETS GT SCH (21:28)
[2023-02-07] MEDS: PIPERACILLIN/TAZOB 4.5 GM 4.5 GM in DEXTROSE 5%-WATER 100 ML IVPB SCH ×2 (02:57→10:45)
[2023-02-07] MEDS: METOPROLOL TARTRATE 25 MG TABLET (FP) GT SCH ×3 (05:44→21:39)
[2023-02-07] MEDS: MULTIVIT-MINERALS ORAL LIQUID GT SCH (10:16)
[2023-02-07] MEDS: AMINO ACIDS/PROTEIN HYDROLYS 30 ML LIQUID.PKT PEG SCH ×3 (10:16→17:40)
[2023-02-07] MEDS: dilTIAZem HCL 30 MG TABLET GT SCH ×4 (10:16→17:40)
[2023-02-07] MEDS: APIXABAN 2.5 MG TABLET GT SCH ×2 (10:16→21:39)
[2023-02-07] MEDS: FERROUS SO4 300 MG/5 ML ORAL SOLN UNIT DOSE CUPS GT SCH ×3 (10:16→17:40)
[2023-02-07] MEDS: POLYETHYLENE GLYCOL (HEALTHYLAX) 3350 17 GM PACKET GT SCH (10:16)
[2023-02-07] MEDS: ASCORBIC ACID 500 MG/5 ML UNIT DOSE CUP GT SCH (12:36)
[2023-02-07] MEDS: COLLAGENASE CLOSTRIDIUM HIST. 30 GRAMS TUBE TP SCH (14:14)
[2023-02-07] MEDS: MELATONIN 5 MG TABLETS GT SCH (21:38)
[2023-02-07] MEDS: ATORVASTATIN CA 10 MG TABLET (FP) GT SCH (21:38)
[2023-02-07] MEDS: MIRTAZAPINE 15 MG TABLET (FP) GT SCH (21:39)
[2023-02-08] MEDS: METOPROLOL TARTRATE 25 MG TABLET (FP) GT SCH ×3 (05:10→21:05)
[2023-02-08] MEDS: AMINO ACIDS/PROTEIN HYDROLYS 30 ML LIQUID.PKT PEG SCH ×3 (08:45→17:24)
[2023-02-08] MEDS: dilTIAZem HCL 30 MG TABLET GT SCH ×3 (09:00→17:24)
[2023-02-08] MEDS: FERROUS SO4 300 MG/5 ML ORAL SOLN UNIT DOSE CUPS GT SCH ×3 (09:09→17:24)
[2023-02-08] MEDS: ASCORBIC ACID 500 MG/5 ML UNIT DOSE CUP GT SCH (10:09)
[2023-02-08] MEDS: POLYETHYLENE GLYCOL (HEALTHYLAX) 3350 17 GM PACKET GT SCH (10:10)
[2023-02-08] MEDS: MULTIVIT-MINERALS ORAL LIQUID GT SCH (10:10)
[2023-02-08] MEDS: APIXABAN 2.5 MG TABLET GT SCH ×2 (10:10→21:03)
[2023-02-08] MEDS: COLLAGENASE CLOSTRIDIUM HIST. 30 GRAMS TUBE TP SCH (12:30)
[2023-02-08] MEDS: ACETAMINOPHEN 650 MG/20.3 ML ORAL SOLUTION (CUPS) GT PRN (20:33)
[2023-02-08] MEDS: MIRTAZAPINE 15 MG TABLET (FP) GT SCH (21:03)
[2023-02-08] MEDS: MELATONIN 5 MG TABLETS GT SCH (21:03)
[2023-02-08] MEDS: ATORVASTATIN CA 10 MG TABLET (FP) GT SCH (21:03)
[2023-02-09] MEDS: METOPROLOL TARTRATE 25 MG TABLET (FP) GT SCH ×3 (06:26→23:19)
[2023-02-09] MEDS: dilTIAZem HCL 30 MG TABLET GT SCH ×3 (09:12→18:02)
[2023-02-09] MEDS: AMINO ACIDS/PROTEIN HYDROLYS 30 ML LIQUID.PKT PEG SCH ×3 (09:22→18:02)
[2023-02-09] MEDS: APIXABAN 2.5 MG TABLET GT SCH ×2 (09:22→23:18)
[2023-02-09] MEDS: POLYETHYLENE GLYCOL (HEALTHYLAX) 3350 17 GM PACKET GT SCH (09:22)
[2023-02-09] MEDS: FERROUS SO4 300 MG/5 ML ORAL SOLN UNIT DOSE CUPS GT SCH ×3 (09:22→18:02)
[2023-02-09] MEDS: MULTIVIT-MINERALS ORAL LIQUID GT SCH (09:22)
[2023-02-09] MEDS: ASCORBIC ACID 500 MG/5 ML UNIT DOSE CUP GT SCH (09:23)
[2023-02-09] MEDS: COLLAGENASE CLOSTRIDIUM HIST. 30 GRAMS TUBE TP SCH (12:28)
[2023-02-09] MEDS: ATORVASTATIN CA 10 MG TABLET (FP) GT SCH (23:16)
[2023-02-09] MEDS: MELATONIN 5 MG TABLETS GT SCH (23:16)
[2023-02-09] MEDS: MIRTAZAPINE 15 MG TABLET (FP) GT SCH (23:17)
[2023-02-09] MEDS: ACETAMINOPHEN 650 MG/20.3 ML ORAL SOLUTION (CUPS) GT PRN (23:20)
[2023-02-10] MEDS: METOPROLOL TARTRATE 25 MG TABLET (FP) GT SCH ×2 (05:25→13:46)
[2023-02-10] MEDS: AMINO ACIDS/PROTEIN HYDROLYS 30 ML LIQUID.PKT PEG SCH ×3 (08:14→17:29)
[2023-02-10] MEDS: MULTIVIT-MINERALS ORAL LIQUID GT SCH (09:47)
[2023-02-10] MEDS: ASCORBIC ACID 500 MG/5 ML UNIT DOSE CUP GT SCH (09:47)
[2023-02-10] MEDS: FERROUS SO4 300 MG/5 ML ORAL SOLN UNIT DOSE CUPS GT SCH ×3 (09:47→17:29)
[2023-02-10] MEDS: COLLAGENASE CLOSTRIDIUM HIST. 30 GRAMS TUBE TP SCH (09:48)
[2023-02-10] MEDS: POLYETHYLENE GLYCOL (HEALTHYLAX) 3350 17 GM PACKET GT SCH (09:48)
[2023-02-10] MEDS: dilTIAZem HCL 30 MG TABLET GT SCH ×3 (09:48→17:03)
[2023-02-10] MEDS: APIXABAN 2.5 MG TABLET GT SCH (09:48)
[2023-02-10 14:11] VITALS: BP 117/65; PULSE 101; RESP 24; TEMP 98.3
[2023-02-10] MEDS: ACETAMINOPHEN 650 MG/20.3 ML ORAL SOLUTION (CUPS) GT PRN (16:13)
== END 2023-02-10 18:03 | DRG 207 ==
LOC: JER 07:22 → JERBED 15:35 → J5S 21:09
PROVIDERS: ADMIT Family Medicine; ATTEND Family Medicine
PROC: 5A1955Z Respiratory Ventilation, Greater than 96 Consecutive Hours (ICD-10-PCS; principal; 2023-02-01)
DX: J18.9 Pneumonia, unspecified organism (principal); L89.154 Pressure ulcer of sacral region, stage 4; A41.9 Sepsis, unspecified organism; E43 Unspecified severe protein-calorie malnutrition; Z99.11 Dependence on respirator [ventilator] status; N39.0 Urinary tract infection, site not specified; R64 Cachexia; J96.10 Chronic respiratory failure, unspecified whether with hypoxia or hypercapnia; Z68.20 Body mass index [BMI] 20.0-20.9, adult; I10 Essential (primary) hypertension; E78.5 Hyperlipidemia, unspecified; I25.2 Old myocardial infarction; G40.909 Epilepsy, unspecified, not intractable, without status epilepticus; G30.9 Alzheimer's disease, unspecified; F02.80 Dementia in other diseases classified elsewhere, unspecified severity, without behavioral disturbance, psychotic disturbance, mood disturbance, and anxiety; Z86.74 Personal history of sudden cardiac arrest; D64.9 Anemia, unspecified; I48.0 Paroxysmal atrial fibrillation; Z93.1 Gastrostomy status; Z93.0 Tracheostomy status
CPT/HCPCS: 36415; 71045-TC-FY; 71250-TC; 80048; 80053; 81003; 82962; 85025; 87040; 87077; 87086; 87635; 94002; 99285-25; C9803-CS; U0003; U0005

== ENCOUNTER 2023-02-10 18:59 | Inpatient (IN) | payer OTHER ==
[2023-02-10 21:44] LABS: BASO % 1.5 % (0-2.0); EOS % 4.4 % (0-4.5); HEMATOCRIT 32.2 % (32.4-45.2); HEMOGLOBIN 10.6 GM/dL (10.7-15.3); LYMPH % 17.5 % (8-40); MCH 28.8 pg (25.7-33.7); MCHC 32.9 g/dl (32.0-36.0); MEAN CELL VOLUME 87.4 fl (80-96); MONO % 13.4 % (3.8-10.2); NEUT % 63.2 % (42.8-82.8); PLATELET COUNT 632 10^3/uL (134-434); RBC 3.68 M/mm3 (3.60-5.2); RDW 22.1 % (11.6-15.6); WHITE BLOOD COUNT 9.3 K/mm3 (4.0-10.0)
[2023-02-10 22:04] LABS: CALCIUM 8.4 mg/dL (8.5-10.1)
[2023-02-10 22:05] LABS: ALBUMIN 1.9 g/dl (3.4-5.0); BLOOD UREA NITROGEN 17.9 mg/dL (7-18)
[2023-02-10 22:08] LABS: CREATININE 0.2 mg/dL (0.55-1.3)
[2023-02-10 22:09] LABS: BILIRUBIN,TOTAL 0.3 mg/dL (0.2-1); TOT PROT 5.9 g/dl (6.4-8.2)
[2023-02-10 22:22] LABS: ANISOCYTOSIS 3+; MACROCYTOSIS 2+
[2023-02-10 23:07] LABS: POTASSIUM 5.1 mmol/L (3.5-5.1)
[2023-02-10 23:22] LABS: EPI CELLS 12 /uL (0-25.1); HYALINE CASTS 16 /uL (0-3.1); PH,URINE 5.5 (5.0-8.0); URINE APPEARANCE TURBID; URINE BACTERIA 112 /uL (0-1359); URINE BILIRUBIN NEGATIVE (NEGATIVE); URINE COLOR YELLOW; URINE GLUCOSE (UA) NEGATIVE (NEGATIVE); URINE KETONE NEGATIVE (NEGATIVE); URINE LEUK ESTERASE 3+ (NEGATIVE); URINE NITRITE NEGATIVE (NEGATIVE); URINE PROTEIN 2+ (NEGATIVE); URINE UROBILINOGEN 0.2 mg/dL (0.2-1.0); URINE WBC 4411 /uL (0-25.8)
[2023-02-10] MEDS ORDERED: CEFTRIAXONE 1 GM in DEXTROSE 5%-WATER - 100 ML IVPB ONE (23:43)
[2023-02-10] MEDS ORDERED: CEFTRIAXONE 1 GM/50 ML BAG ONE (23:47)
[2023-02-11] MEDS: MEROPENEM 1 GM in DEXTROSE 5%-WATER 100 ML IVPB SCH ×2 (02:37→09:36)
[2023-02-11] MEDS: COLLAGENASE CLOSTRIDIUM HIST. 30 GRAMS TUBE TP SCH ×3 (03:28→21:47)
[2023-02-11] MEDS: dilTIAZem HCL 30 MG TABLET GT SCH ×3 (05:54→21:31)
[2023-02-11] MEDS: METOPROLOL TARTRATE 25 MG TABLET (FP) GT SCH ×3 (05:55→21:46)
[2023-02-11] MEDS: FERROUS SO4 300 MG/5 ML ORAL SOLN UNIT DOSE CUPS GT SCH ×3 (05:55→21:45)
[2023-02-11] MEDS: LINEZOLID 600 MG PREMIX BAG 600 MG/300 ML BAG IVPB SCH ×2 (06:13→15:35)
[2023-02-11 06:59] LABS: URINE CRYSTALS NONE SEEN /hpf; URINE RBC 2896.6 /uL (0-23.9); YEAST MANY (NEGATIVE)
[2023-02-11] MEDS: AMINO ACIDS/PROTEIN HYDROLYS 30 ML LIQUID.PKT PEG SCH ×3 (09:35→17:28)
[2023-02-11] MEDS: ASCORBIC ACID 250 MG TABLET (FP) GT SCH (09:36)
[2023-02-11] MEDS: POLYETHYLENE GLYCOL (HEALTHYLAX) 3350 17 GM PACKET GT SCH (09:36)
[2023-02-11] MEDS: ZINC SULFATE 220 MG CAPSULE (FP) GT SCH (09:36)
[2023-02-11] MEDS: FAMOTIDINE 20 MG/2.5 ML ORAL LIQUID GT SCH ×2 (09:36→21:46)
[2023-02-11] MEDS: APIXABAN 2.5 MG TABLET GT SCH ×2 (09:40→21:45)
[2023-02-11] MEDS: MULTIVIT-MINERALS ORAL LIQUID GT SCH (11:12)
[2023-02-11 11:27] LABS: BASO % 1.1 % (0-2.0); EOS % 0.2 % (0-4.5); HEMATOCRIT 28.3 % (32.4-45.2); LYMPH % 8.8 % (8-40); MCH 27.9 pg (25.7-33.7); MCHC 31.9 g/dl (32.0-36.0); MEAN CELL VOLUME 87.5 fl (80-96); MEAN PLT VOLUME 7.5 fl (7.5-11.1); MONO % 10.4 % (3.8-10.2); NEUT % 79.5 % (42.8-82.8); PLATELET COUNT 563 10^3/uL (134-434); RBC 3.24 M/mm3 (3.60-5.2); RDW 22.3 % (11.6-15.6); WHITE BLOOD COUNT 9.6 K/mm3 (4.0-10.0)
[2023-02-11 12:35] LABS: POTASSIUM 4.6 mmol/L (3.5-5.1)
[2023-02-11 12:37] LABS: ALBUMIN 1.8 g/dl (3.4-5.0); CALCIUM 8.3 mg/dL (8.5-10.1); MAGNESIUM 2.1 mg/dL (1.8-2.4)
[2023-02-11 12:38] LABS: BLOOD UREA NITROGEN 19.5 mg/dL (7-18)
[2023-02-11 12:40] LABS: CREATININE 0.3 mg/dL (0.55-1.3); PHOSPHOROUS 3.1 mg/dL (2.5-4.9)
[2023-02-11 12:42] LABS: BILIRUBIN,TOTAL 0.2 mg/dL (0.2-1); TOT PROT 5.4 g/dl (6.4-8.2)
[2023-02-11 15:57] VITALS: BMI 16.2
[2023-02-11 20:03] LABS: EPI CELLS 9 /uL (0-25.1); HYALINE CASTS 2 /uL (0-3.1); PH,URINE 5.5 (5.0-8.0); URINE APPEARANCE CLOUDY; URINE BACTERIA 191 /uL (0-1359); URINE BILIRUBIN NEGATIVE (NEGATIVE); URINE COLOR YELLOW; URINE GLUCOSE (UA) NEGATIVE (NEGATIVE); URINE KETONE NEGATIVE (NEGATIVE); URINE LEUK ESTERASE 2+ (NEGATIVE); URINE NITRITE NEGATIVE (NEGATIVE); URINE PROTEIN 2+ (NEGATIVE); URINE RBC 5838 /uL (0-23.9); URINE UROBILINOGEN 0.2 mg/dL (0.2-1.0); URINE WBC 2101 /uL (0-25.8)
[2023-02-11] MEDS: ATORVASTATIN CA 10 MG TABLET (FP) GT SCH (21:45)
[2023-02-11] MEDS: MELATONIN 5 MG TABLETS GT SCH (21:46)
[2023-02-11] MEDS: MIRTAZAPINE 15 MG TABLET (FP) GT SCH (21:46)
[2023-02-12] MEDS ORDERED: MEROPENEM 1 GM in DEXTROSE 5%-WATER 100 ML IVPB SCH (02:00)
[2023-02-12] MEDS ORDERED: LINEZOLID 600 MG PREMIX BAG 600 MG/300 ML BAG IVPB SCH (02:00)
[2023-02-12] MEDS: METOPROLOL TARTRATE 25 MG TABLET (FP) GT SCH ×3 (05:27→21:58)
[2023-02-12] MEDS: dilTIAZem HCL 30 MG TABLET GT SCH ×3 (05:27→21:57)
[2023-02-12] MEDS: FERROUS SO4 300 MG/5 ML ORAL SOLN UNIT DOSE CUPS GT SCH ×3 (05:27→21:59)
[2023-02-12] MEDS: FAMOTIDINE 20 MG/2.5 ML ORAL LIQUID GT SCH ×2 (10:51→22:00)
[2023-02-12] MEDS: APIXABAN 2.5 MG TABLET GT SCH ×2 (10:51→21:59)
[2023-02-12] MEDS: ASCORBIC ACID 250 MG TABLET (FP) GT SCH (10:51)
[2023-02-12] MEDS: ZINC SULFATE 220 MG CAPSULE (FP) GT SCH (10:51)
[2023-02-12] MEDS: MEROPENEM 1 GM in DEXTROSE 5%-WATER 100 ML IVPB SCH ×2 (10:51→21:57)
[2023-02-12] MEDS: MULTIVIT-MINERALS ORAL LIQUID GT SCH (10:51)
[2023-02-12] MEDS: POLYETHYLENE GLYCOL (HEALTHYLAX) 3350 17 GM PACKET GT SCH (10:51)
[2023-02-12] MEDS: AMINO ACIDS/PROTEIN HYDROLYS 30 ML LIQUID.PKT PEG SCH ×3 (10:51→18:01)
[2023-02-12] MEDS: COLLAGENASE CLOSTRIDIUM HIST. 30 GRAMS TUBE TP SCH ×2 (13:00→22:00)
[2023-02-12] MEDS: ATORVASTATIN CA 10 MG TABLET (FP) GT SCH (21:57)
[2023-02-12] MEDS: MELATONIN 5 MG TABLETS GT SCH (21:58)
[2023-02-12] MEDS: MIRTAZAPINE 15 MG TABLET (FP) GT SCH (21:58)
[2023-02-13] MEDS: METOPROLOL TARTRATE 25 MG TABLET (FP) GT SCH ×4 (05:54→22:46)
[2023-02-13] MEDS: dilTIAZem HCL 30 MG TABLET GT SCH ×4 (05:54→22:46)
[2023-02-13] MEDS: FERROUS SO4 300 MG/5 ML ORAL SOLN UNIT DOSE CUPS GT SCH ×3 (05:54→22:25)
[2023-02-13] MEDS: AMINO ACIDS/PROTEIN HYDROLYS 30 ML LIQUID.PKT PEG SCH ×3 (09:25→17:18)
[2023-02-13] MEDS: FAMOTIDINE 20 MG/2.5 ML ORAL LIQUID GT SCH ×2 (10:07→22:25)
[2023-02-13] MEDS: MULTIVIT-MINERALS ORAL LIQUID GT SCH (10:07)
[2023-02-13] MEDS: ASCORBIC ACID 250 MG TABLET (FP) GT SCH (10:08)
[2023-02-13] MEDS: APIXABAN 2.5 MG TABLET GT SCH ×2 (10:08→22:29)
[2023-02-13] MEDS: ZINC SULFATE 220 MG CAPSULE (FP) GT SCH (10:08)
[2023-02-13] MEDS: MEROPENEM 1 GM in DEXTROSE 5%-WATER 100 ML IVPB SCH (10:08)
[2023-02-13] MEDS: POLYETHYLENE GLYCOL (HEALTHYLAX) 3350 17 GM PACKET GT SCH (10:08)
[2023-02-13] MEDS: COLLAGENASE CLOSTRIDIUM HIST. 30 GRAMS TUBE TP SCH ×2 (10:09→22:30)
[2023-02-13] MEDS: MIRTAZAPINE 15 MG TABLET (FP) GT SCH (22:25)
[2023-02-13] MEDS: MELATONIN 5 MG TABLETS GT SCH (22:28)
[2023-02-13] MEDS: ATORVASTATIN CA 10 MG TABLET (FP) GT SCH (22:29)
[2023-02-14] MEDS: FERROUS SO4 300 MG/5 ML ORAL SOLN UNIT DOSE CUPS GT SCH ×3 (05:35→22:04)
[2023-02-14] MEDS: METOPROLOL TARTRATE 25 MG TABLET (FP) GT SCH ×3 (05:36→22:05)
[2023-02-14] MEDS: dilTIAZem HCL 30 MG TABLET GT SCH ×3 (05:36→22:05)
[2023-02-14] MEDS: AMINO ACIDS/PROTEIN HYDROLYS 30 ML LIQUID.PKT PEG SCH ×3 (07:54→16:52)
[2023-02-14] MEDS: ZINC SULFATE 220 MG CAPSULE (FP) GT SCH (09:32)
[2023-02-14] MEDS: MULTIVIT-MINERALS ORAL LIQUID GT SCH (09:32)
[2023-02-14] MEDS: ASCORBIC ACID 250 MG TABLET (FP) GT SCH (09:32)
[2023-02-14] MEDS: FAMOTIDINE 20 MG/2.5 ML ORAL LIQUID GT SCH ×2 (09:32→22:05)
[2023-02-14] MEDS: POLYETHYLENE GLYCOL (HEALTHYLAX) 3350 17 GM PACKET GT SCH (09:33)
[2023-02-14] MEDS: COLLAGENASE CLOSTRIDIUM HIST. 30 GRAMS TUBE TP SCH ×2 (09:33→22:53)
[2023-02-14] MEDS: APIXABAN 2.5 MG TABLET GT SCH ×2 (09:33→22:05)
[2023-02-14 13:35] LABS: BASO % 1.4 % (0-2.0); EOS % 14.2 % (0-4.5); HEMATOCRIT 25.3 % (32.4-45.2); HEMOGLOBIN 8.3 GM/dL (10.7-15.3); LYMPH % 22.1 % (8-40); MCH 29.1 pg (25.7-33.7); MEAN CELL VOLUME 88.1 fl (80-96); MONO % 11.1 % (3.8-10.2); NEUT % 51.2 % (42.8-82.8); PLATELET COUNT 549 10^3/uL (134-434); RBC 2.87 M/mm3 (3.60-5.2); RDW 21.7 % (11.6-15.6); WHITE BLOOD COUNT 5.8 K/mm3 (4.0-10.0)
[2023-02-14 13:48] LABS: POTASSIUM 4.7 mmol/L (3.5-5.1)
[2023-02-14 13:49] LABS: ALBUMIN 1.6 g/dl (3.4-5.0); CALCIUM 7.9 mg/dL (8.5-10.1)
[2023-02-14 13:51] LABS: BLOOD UREA NITROGEN 13.2 mg/dL (7-18)
[2023-02-14 13:54] LABS: CREATININE 0.2 mg/dL (0.55-1.3)
[2023-02-14 13:55] LABS: BILIRUBIN,TOTAL 0.2 mg/dL (0.2-1); TOT PROT 4.9 g/dl (6.4-8.2)
[2023-02-14 15:00] LABS: ANISOCYTOSIS 2+; MACROCYTOSIS 0; OVALOCYTE 1+
[2023-02-14] MEDS: MIRTAZAPINE 15 MG TABLET (FP) GT SCH (22:04)
[2023-02-14] MEDS: MELATONIN 5 MG TABLETS GT SCH (22:05)
[2023-02-14] MEDS: ATORVASTATIN CA 10 MG TABLET (FP) GT SCH (22:05)
[2023-02-15] MEDS: FERROUS SO4 300 MG/5 ML ORAL SOLN UNIT DOSE CUPS GT SCH ×3 (05:31→22:04)
[2023-02-15] MEDS: dilTIAZem HCL 30 MG TABLET GT SCH ×3 (05:31→22:07)
[2023-02-15] MEDS: METOPROLOL TARTRATE 25 MG TABLET (FP) GT SCH ×3 (05:31→22:05)
[2023-02-15] MEDS: AMINO ACIDS/PROTEIN HYDROLYS 30 ML LIQUID.PKT PEG SCH ×3 (09:05→17:06)
[2023-02-15] MEDS: ZINC SULFATE 220 MG CAPSULE (FP) GT SCH (09:28)
[2023-02-15] MEDS: APIXABAN 2.5 MG TABLET GT SCH ×2 (09:28→22:07)
[2023-02-15] MEDS: ASCORBIC ACID 250 MG TABLET (FP) GT SCH (09:28)
[2023-02-15] MEDS: FAMOTIDINE 20 MG/2.5 ML ORAL LIQUID GT SCH ×2 (09:28→22:04)
[2023-02-15] MEDS: POLYETHYLENE GLYCOL (HEALTHYLAX) 3350 17 GM PACKET GT SCH (09:29)
[2023-02-15] MEDS: MULTIVIT-MINERALS ORAL LIQUID GT SCH (09:29)
[2023-02-15] MEDS: COLLAGENASE CLOSTRIDIUM HIST. 30 GRAMS TUBE TP SCH (12:03)
[2023-02-15] MEDS: ACETAMINOPHEN 325 MG TABLET (FP) PO PRN ×2 (12:28→22:06)
[2023-02-15] MEDS: ATORVASTATIN CA 10 MG TABLET (FP) GT SCH (22:04)
[2023-02-15] MEDS: MIRTAZAPINE 15 MG TABLET (FP) GT SCH (22:05)
[2023-02-15] MEDS: MELATONIN 5 MG TABLETS GT SCH (22:07)
[2023-02-16] MEDS: ACETAMINOPHEN 325 MG TABLET (FP) PO PRN ×2 (05:04→18:11)
[2023-02-16] MEDS: METOPROLOL TARTRATE 25 MG TABLET (FP) GT SCH ×3 (05:05→21:47)
[2023-02-16] MEDS: dilTIAZem HCL 30 MG TABLET GT SCH ×3 (05:05→21:47)
[2023-02-16] MEDS: FERROUS SO4 300 MG/5 ML ORAL SOLN UNIT DOSE CUPS GT SCH ×3 (05:05→21:47)
[2023-02-16 09:48] LABS: BASO % 1.1 % (0-2.0); EOS % 10.4 % (0-4.5); HEMOGLOBIN 9.2 GM/dL (10.7-15.3); LYMPH % 15.1 % (8-40); MCH 28.4 pg (25.7-33.7); MCHC 31.7 g/dl (32.0-36.0); MEAN CELL VOLUME 89.8 fl (80-96); MEAN PLT VOLUME 8.6 fl (7.5-11.1); MONO % 8.9 % (3.8-10.2); NEUT % 64.5 % (42.8-82.8); PLATELET COUNT 245 10^3/uL (134-434); RBC 3.23 M/mm3 (3.60-5.2); RDW 22.4 % (11.6-15.6); WHITE BLOOD COUNT 8.4 K/mm3 (4.0-10.0)
[2023-02-16] MEDS: ZINC SULFATE 220 MG CAPSULE (FP) GT SCH (10:22)
[2023-02-16] MEDS: AMINO ACIDS/PROTEIN HYDROLYS 30 ML LIQUID.PKT PEG SCH ×3 (10:22→17:58)
[2023-02-16] MEDS: ASCORBIC ACID 250 MG TABLET (FP) GT SCH (10:22)
[2023-02-16] MEDS: FAMOTIDINE 20 MG/2.5 ML ORAL LIQUID GT SCH ×2 (10:22→21:47)
[2023-02-16] MEDS: POLYETHYLENE GLYCOL (HEALTHYLAX) 3350 17 GM PACKET GT SCH (10:22)
[2023-02-16] MEDS: MULTIVIT-MINERALS ORAL LIQUID GT SCH (10:22)
[2023-02-16] MEDS: APIXABAN 2.5 MG TABLET GT SCH ×2 (10:22→21:48)
[2023-02-16 10:36] LABS: ALBUMIN 1.8 g/dl (3.4-5.0); BILIRUBIN,TOTAL 0.3 mg/dL (0.2-1); BLOOD UREA NITROGEN 15.7 mg/dL (7-18); CALCIUM 7.9 mg/dL (8.5-10.1); CREATININE 0.2 mg/dL (0.55-1.3); POTASSIUM 4.4 mmol/L (3.5-5.1)
[2023-02-16] MEDS: COLLAGENASE CLOSTRIDIUM HIST. 30 GRAMS TUBE TP SCH (14:32)
[2023-02-16] MEDS: MIRTAZAPINE 15 MG TABLET (FP) GT SCH (21:47)
[2023-02-16] MEDS: MELATONIN 5 MG TABLETS GT SCH (21:47)
[2023-02-16] MEDS: ATORVASTATIN CA 10 MG TABLET (FP) GT SCH (21:47)
[2023-02-17] MEDS: METOPROLOL TARTRATE 25 MG TABLET (FP) GT SCH ×3 (05:33→21:33)
[2023-02-17] MEDS: dilTIAZem HCL 30 MG TABLET GT SCH ×3 (05:33→21:34)
[2023-02-17] MEDS: AMINO ACIDS/PROTEIN HYDROLYS 30 ML LIQUID.PKT PEG SCH ×3 (09:15→17:30)
[2023-02-17 10:24] LABS: BASO % 0.6 % (0-2.0); EOS % 6.3 % (0-4.5); HEMATOCRIT 28.9 % (32.4-45.2); HEMOGLOBIN 9.5 GM/dL (10.7-15.3); LYMPH % 14.5 % (8-40); MCH 28.5 pg (25.7-33.7); MCHC 32.9 g/dl (32.0-36.0); MEAN CELL VOLUME 86.7 fl (80-96); MONO % 10.8 % (3.8-10.2); NEUT % 67.8 % (42.8-82.8); PLATELET COUNT 547 10^3/uL (134-434); RBC 3.33 M/mm3 (3.60-5.2); RDW 21.6 % (11.6-15.6); WHITE BLOOD COUNT 8.9 K/mm3 (4.0-10.0)
[2023-02-17] MEDS: FAMOTIDINE 20 MG/2.5 ML ORAL LIQUID GT SCH ×2 (10:26→21:34)
[2023-02-17] MEDS: MULTIVIT-MINERALS ORAL LIQUID GT SCH (10:26)
[2023-02-17] MEDS: ZINC SULFATE 220 MG CAPSULE (FP) GT SCH (10:27)
[2023-02-17] MEDS: POLYETHYLENE GLYCOL (HEALTHYLAX) 3350 17 GM PACKET GT SCH (10:31)
[2023-02-17] MEDS: APIXABAN 2.5 MG TABLET GT SCH ×2 (10:31→21:33)
[2023-02-17] MEDS: ASCORBIC ACID 250 MG TABLET (FP) GT SCH (10:31)
[2023-02-17] MEDS: ACETAMINOPHEN 325 MG TABLET (FP) PO PRN (14:02)
[2023-02-17] MEDS: FERROUS SO4 300 MG/5 ML ORAL SOLN UNIT DOSE CUPS GT SCH ×2 (14:04→21:33)
[2023-02-17] MEDS: COLLAGENASE CLOSTRIDIUM HIST. 30 GRAMS TUBE TP SCH (14:04)
[2023-02-17] MEDS: MELATONIN 5 MG TABLETS GT SCH (21:33)
[2023-02-17] MEDS: ATORVASTATIN CA 10 MG TABLET (FP) GT SCH (21:33)
[2023-02-17] MEDS: MIRTAZAPINE 15 MG TABLET (FP) GT SCH (21:34)
[2023-02-18] MEDS: FERROUS SO4 300 MG/5 ML ORAL SOLN UNIT DOSE CUPS GT SCH ×3 (05:06→15:56)
[2023-02-18] MEDS: dilTIAZem HCL 30 MG TABLET GT SCH ×2 (05:06→14:26)
[2023-02-18] MEDS: METOPROLOL TARTRATE 25 MG TABLET (FP) GT SCH ×2 (05:06→14:26)
[2023-02-18] MEDS: ACETAMINOPHEN 325 MG TABLET (FP) PO PRN (05:06)
[2023-02-18] MEDS: APIXABAN 2.5 MG TABLET GT SCH (09:33)
[2023-02-18] MEDS: MULTIVIT-MINERALS ORAL LIQUID GT SCH (09:33)
[2023-02-18] MEDS: FAMOTIDINE 20 MG/2.5 ML ORAL LIQUID GT SCH (09:33)
[2023-02-18] MEDS: POLYETHYLENE GLYCOL (HEALTHYLAX) 3350 17 GM PACKET GT SCH (09:33)
[2023-02-18] MEDS: AMINO ACIDS/PROTEIN HYDROLYS 30 ML LIQUID.PKT PEG SCH ×2 (09:33→14:26)
[2023-02-18] MEDS: ZINC SULFATE 220 MG CAPSULE (FP) GT SCH (09:33)
[2023-02-18] MEDS: ASCORBIC ACID 250 MG TABLET (FP) GT SCH (09:33)
[2023-02-18] MEDS: COLLAGENASE CLOSTRIDIUM HIST. 30 GRAMS TUBE TP SCH (09:33)
[2023-02-18 14:47] VITALS: BP 141/86; PULSE 102; TEMP 97.4
[2023-02-18 15:58] VITALS: RESP 22
== END 2023-02-18 16:15 | DRG 870 ==
LOC: JER 18:59 → JERBED 20:04 → J5S 02-11 01:29 → OBSVTOIN 02-11 11:18
PROVIDERS: ADMIT Internal Medicine; ATTEND Family Medicine
PROC: 5A1955Z Respiratory Ventilation, Greater than 96 Consecutive Hours (ICD-10-PCS; principal; 2023-02-10)
DX: A41.9 Sepsis, unspecified organism (principal); L89.154 Pressure ulcer of sacral region, stage 4; J96.20 Acute and chronic respiratory failure, unspecified whether with hypoxia or hypercapnia; N39.0 Urinary tract infection, site not specified; R64 Cachexia; Z68.1 Body mass index [BMI] 19.9 or less, adult; Z99.11 Dependence on respirator [ventilator] status; Z93.0 Tracheostomy status; I95.9 Hypotension, unspecified; F03.90 Unspecified dementia, unspecified severity, without behavioral disturbance, psychotic disturbance, mood disturbance, and anxiety; K21.9 Gastro-esophageal reflux disease without esophagitis; I25.10 Atherosclerotic heart disease of native coronary artery without angina pectoris; I10 Essential (primary) hypertension; E78.5 Hyperlipidemia, unspecified
CPT/HCPCS: 36415; 71045-TC-FY; 76705-TC; 80053; 81003; 82962; 83735; 84100; 85025; 86705; 86803; 87040; 87077; 87086; 87340; 87517; 87635; 93005; 93010; 94002; 99285-25; E0186; G0378